=== PATIENT | female | born 1975 | race Caucasian/White ===

== ENCOUNTER → 2018-09-21 15:40 | Outpatient (CLI) | payer OTHER, SELFPAY ==
[2018-09-21 18:30] LABS: AST(SGOT) 19 U/L (15-37); Alanine Aminotransfer ALT/SGPT 34 U/L (13-56); Albumin, Serum 4.1 g/dL (3.2-5.0); Alkaline Phosphatase 60 U/L (45-117); Bilirubin, Direct 0.08 mg/dL (0.00-0.30); CRP < 2.90 mg/L (0.0-3.0); Globulin 3.2 g/dL (2.2-4.2); Lipase 205 U/L (73-393); Protein, Total 7.3 g/dL (6.4-8.2)
== END ==
PROVIDERS: Family Provider Family Medicine; PCP Family Medicine; Referring Provider Internal Medicine Gastroenterology; Visit Provider Internal Medicine Gastroenterology
DX: R10.11 Right upper quadrant pain (principal)
CPT/HCPCS: 36415; 80076; 83690; 86140

== ENCOUNTER → 2018-09-25 09:39 | Outpatient (CLI) | payer OTHER, SELFPAY ==
--- NOTE | 2018-09-25 09:42 | US_ITS ---
STUDY: ABDOMINAL ULTRASOUND - RIGHT UPPER QUADRANT REASON FOR VISIT: Female, 43 years old. Nausea and vomiting with right upper quadrant pain following cholecystectomy TECHNIQUE: Ultrasound evaluation of the right upper quadrant was performed with real-time and static conway-scale imaging. TECHNICAL QUALITY: Adequate. COMPARISON: None. FINDINGS: Liver: The liver measures 11 cm. There is normal echogenicity of the liver. The bile ducts are within normal limits. There is hepatic color flow. The direction of portal flow is hepatopetal. There is no demonstrated mass lesion. Gallbladder: The gallbladder is not visualized. No focal fluid collection. Common Bile Duct (C.B.D.): The common bile duct measures 3 mm. Pancreas: There is normal echogenicity of the visualized pancreas. There is no demonstrated pancreatic mass or cyst. Right Kidney: Normal size of the right kidney. The right kidney measures 9.9 cm. Normal renal cortex. The right cortex measures 1.1 cm. There is no demonstrated renal mass or cyst. There is no right hydronephrosis. US/Liver IMPRESSION: 1. Cholecystectomy. No biliary dilation or focal fluid collection demonstrated. Electronically Signed: Volodymyr Hdz MD at 15:37 EST , Service support ,
== END ==
PROVIDERS: Family Provider Family Medicine; PCP Family Medicine; Referring Provider Internal Medicine Gastroenterology; Visit Provider Internal Medicine Gastroenterology
DX: R11.0 Nausea (principal); Z90.49 Acquired absence of other specified parts of digestive tract
CPT/HCPCS: 76705

== ENCOUNTER → 2018-10-05 11:07 | Outpatient (CLI) | payer OTHER, SELFPAY ==
[2018-10-05 12:21] LABS: AST(SGOT) 17 U/L (15-37); Alanine Aminotransfer ALT/SGPT 24 U/L (13-56); Albumin, Serum 3.7 g/dL (3.2-5.0); Alkaline Phosphatase 58 U/L (45-117); Bilirubin, Direct 0.18 mg/dL (0.00-0.30); CRP < 2.90 mg/L (0.0-3.0); Globulin 3.3 g/dL (2.2-4.2); Lipase 140 U/L (73-393)
--- OUTSIDE RECORDS SUMMARY | 2018-12-07 21:24 | XMS RPT_ITS ---
:1975 Author Organization [facility] Care Team Providers Name Role Phone ANN COLE (SUPERVISOR OF WAY) Attending Unavailable ANN COLE (SUPERVISOR OF WAY) Referring Unavailable NAGAANN (SUPERVISOR OF WAY) Referring Unavailable NAGA, ANN (SUPERVISOR OF WAY) Referring Unavailable MARISOL HUA (PA) Referring Unavailable Guerrero Louise Attending Unavailable Guerrero Louise Referring Unavailable Kaylie Hankins Primary Care Unavailable Guerrero Louise Attending Unavailable Aspen, Guerrero Referring Unavailable Cr, Kaylie Primary Care Unavailable JosebourGuerrero Attending Unavailable Jabour, Shwethaent Referring Unavailable Jollrajiv, Kaylie Primary Care Unavailable PROBLEMS PROBLEMS DATE TYPE CONDITION / CODE ATTENDING STATUS SOURCE 08/31/2018 Active Cough / NA Active [facility] R05(ICD-10) [facility] 08/19/2018 Active Other abnormal and NA Active [facility] inconclusive [facility] findings on Repository diagnostic imaging of breast / R92.8(ICD-10) 07/29/2018 Active Encounter for NA Active [facility] screening [facility] mammogram for Repository malignant neoplasm of breast / Z12.31(ICD-10) 07/21/2018 Active Unknown / ANN COLE Active [facility] UNK(Unknown) (SUPERVISOR OF WAY) [facility] PROCEDURES PROCEDURES No Procedure Records FoundRESULTS RESULTS LIVER PROFILE Collected: 10/05/2018 Status: F Source: [place] 11:11 AM [facility] REPOSITORY TYPE CODE TESTS RESULT OUT OF RANGE REFERENCE UNITS LAB L501.1500 6.4-8.2 g/dL Normal T PROT 7.0 LAB L501.1800 3.2-5.0 g/dL Normal ALB 3.7 LAB L501.1950 2.2-4.2 g/dL Normal GLOB 3.3 LAB L501.4100 15-37 U/L Normal AST 17 LAB L501.4305 45-117 U/L Normal ALK P 58 LAB L501.4405 13-56 U/L Normal ALT 24 LAB L501.4600 0.20-1.00 mg/dL Normal T BILI 0.80 LAB L501.4700 0.00-0.30 mg/dL Normal D BILI 0.18 Performed By: #### L500.3400, L501.2450, L501.6710 #### [facility] [address] [place], [place], [id number] LIPASE Collected: 10/05/2018 Status: F Source: [place] 11:11 AM [facility] REPOSITORY TYPE CODE TESTS RESULT OUT OF RANGE REFERENCE UNITS LAB L501.2450 73-393 U/L Normal LIPASE 140 Performed By: #### L500.3400, L501.2450, L501.6710 #### [facility] [address] [place], [place], [address] CRP Collected: 10/05/2018 Status: F Source: [place] 11:11 AM [facility] REPOSITORY TYPE CODE TESTS RESULT OUT OF RANGE REFERENCE UNITS LAB L501.6710 0.0-3.0 mg/L Normal < 2.90 C-REACTIVE PROT Result Comment: C-Reactive Protein (CRP) provides useful information for the diagnosis, therapy and monitoring of inflammatory processes and associated diseases. For the evaluation of Relative Risk for Cardiovascular Disease, a High Sensitivity CRP (HSCRP) should be ordered. Performed By: #### L500.3400, L501.2450, L501.6710 #### [facility] [address] [place], [address] LIVER Observed: 09/25/2018 Status: F Source: [place] 9:43 AM [facility] REPOSITORY [facility] Imaging Services [address] [place] [address] Liver MR#: [id number] Acct: [id number] Name: QUITA SPENCER Rep #: [id number] : 1975 F 43 From: Volodymyr Hdz MD PCP: Kaylie Hankins MD Status: REG CLI Study: Liver Date of Exam: 09/25/18 Exam# [id number] Ordering Dr: Guerrero Louise MD STUDY: ABDOMINAL ULTRASOUND - RIGHT UPPER QUADRANT REASON FOR VISIT: Female, 43 years old. Nausea and vomiting with right upper quadrant pain following cholecystectomy TECHNIQUE: Ultrasound evaluation of the right upper quadrant was performed with real-time and static gama-scale imaging. TECHNICAL QUALITY: Adequate. COMPARISON: None. FINDINGS: Liver: The liver measures 11 cm. There is normal echogenicity of the liver. The bile ducts are within normal limits. There is hepatic color flow. The direction of portal flow is hepatopetal. There is no demonstrated mass lesion. Gallbladder: The gallbladder is not visualized. No focal fluid collection. Common Bile Duct (C.B.D.): The common bile duct measures 3 mm. Pancreas: There is normal echogenicity of the visualized pancreas. There is no demonstrated pancreatic mass or cyst. Right Kidney: Normal size of the right kidney. The right kidney measures 9.9 cm. Normal renal cortex. The right cortex measures 1.1 cm. There is no demonstrated renal mass or cyst. There is no right hydronephrosis. US/Liver IMPRESSION: 1. Cholecystectomy. No biliary dilation or focal fluid collection demonstrated. Electronically Signed: Volodymyr Hdz MD at 15:37 EST , Service support , CC: Kaylie Hankins MD; Guerrero Louise Medical Transcriptionist: Signed LIVER PROFILE Collected: 09/21/2018 Status: F Source: [place] 3:50 PM [facility] REPOSITORY TYPE CODE TESTS RESULT OUT OF RANGE REFERENCE UNITS LAB L501.1500 6.4-8.2 g/dL Normal T PROT 7.3 LAB L501.1800 3.2-5.0 g/dL Normal ALB 4.1 LAB L501.1950 2.2-4.2 g/dL Normal GLOB 3.2 LAB L501.4100 15-37 U/L Normal AST 19 LAB L501.4305 45-117 U/L Normal ALK P 60 LAB L501.4405 13-56 U/L Normal ALT 34 LAB L501.4600 0.20-1.00 mg/dL Normal T BILI 0.30 LAB L501.4700 0.00-0.30 mg/dL Normal D BILI 0.08 Performed By: #### L500.3400, L501.2450, L501.6710 #### [facility] [address] [place], [place], [id number] LIPASE Collected: 09/21/2018 Status: F Source: [place] 3:50 PM [facility] REPOSITORY TYPE CODE TESTS RESULT OUT OF RANGE REFERENCE UNITS LAB L501.2450 73-393 U/L Normal LIPASE 205 Performed By: #### L500.3400, L501.2450, L501.6710 #### [facility] [address] [facility] [place], [place], [address] CRP Collected: 09/21/2018 Status: F Source: [place] 3:50 PM [facility] REPOSITORY TYPE CODE TESTS RESULT OUT OF RANGE REFERENCE UNITS LAB L501.6710 0.0-3.0 mg/L Normal < 2.90 C-REACTIVE PROT Result Comment: C-Reactive Protein (CRP) provides useful information for the diagnosis, therapy and monitoring of inflammatory processes and associated diseases. For the evaluation of Relative Risk for Cardiovascular Disease, a High Sensitivity CRP (HSCRP) should be ordered. Performed By: #### L500.3400, L501.2450, L501.6710 #### [facility] [address] [place], [address] PROGRESS Observed: 08/31/2018 Status: COMPLETED Source: [place] 8:44 AM [facility] REPOSITORY HNO ID: [id number] Author: Marisol Hardin) Javid Service: (none) Author Type: Physician Parts Advisor Type: Progress Notes Filed: 08/31/2018 8:50 AM Note Text: Subjective HPI Patient presents with a cough over the past week. She states every winter she gets a viral bronchitis and this feels similar. She was here 4 days ago and was started on prednisone. She states she really doesn't feel any improved and the cough is keeping her up all night. She states she's been fatigued. She does intermittently feel short of breath and has been using her inhaler every 2-4 hours. She denies ever being formally diagnosed with asthma. She denies any fever or chills. No chest pain. No vomiting or diarrhea. This is really been a dry persistent cough. Review of Systems Constitutional: Negative. HENT: Negative. Eyes: Negative. Respiratory: Positive for cough, shortness of breath and wheezing. Negative for hemoptysis and sputum production. Cardiovascular: Negative. Gastrointestinal: Negative. Genitourinary: Negative. Skin: Negative. All other systems reviewed and are negative. PAST MEDICAL HISTORY Diagnosis Date - Post viral RAD (reactive airway disease) cough/wheezing with URIs Current Outpatient Prescriptions: albuterol HFA (PROAIR HFA) 90 mcg/actuation inhaler Inhale 2 Puffs as instructed every 4 hours as needed. Disp: 1 Inhaler Rfl: 0 benzonatate (TESSALON PERLE) 100 mg capsule Take 1 capsule by mouth every 8 hours as needed for Cough for up to 15 days. Disp: 30 capsule Rfl: 0 Omeprazole 40 mg capsule Take 40 mg by mouth once daily. Disp: Rfl: predniSONE (DELTASONE) 10 mg tablet Take by mouth 5 pills on day 1, 4 pills on day 2, 3 pills on day 3, 2 pills on day 4, 1 pill on day 5. Disp: 15 tablet Rfl: 0 codeine-guaiFENesin (GUAIFENESIN AC) 10-100 mg/5 mL syrup Take 10 mL by mouth four times daily as needed for up to 7 days. Disp: 100 mL Rfl: 0 Fluticasone Propionate (FLOVENT DISKUS) 50 mcg/actuation diskus inhaler Inhale 2 Puffs as instructed twice daily. Disp: 1 Inhaler Rfl: 0 No current facility-administered medications for this visit. PAST SURGICAL HISTORY Procedure Laterality Date - CORRECT BUNION,SIMPLE 1994 LEFT FOOT - EGD W/O OR W/BRUSH/WASH 09/06/2015 EGD - GALLBLADDER/EF 12/2015 FAMILY HISTORY Problem Relation Age of Onset - Diabetes Mother - Hypertension Mother - Breast Cancer Mother age 61, was tested and neg - Hypertension Father - other (liver disease) Father - Breast Cancer Maternal Grandmother - Diabetes Maternal Grandmother - Hypertension Maternal Grandmother - Breast Cancer Other MATERNAL GREAT AUNTS X2 - Hypertension Sister - Diabetes Sister Social History Substance Use Topics - Smoking status: Never Smoker - Smokeless tobacco: Never Used - Alcohol use Yes Comment: occasionally BP 120/80 Pulse 87 Temp 36.3 ?C (97.4 ?F) (Left Tympanic) Resp 14 Wt 55.3 kg (122 lb) SpO2 99% BMI 22.68 kg/m? Objective Physical Exam Constitutional: She is oriented to person, place, and time and well-developed, well-nourished, and in no distress. HENT: Head: Normocephalic and atraumatic. Right Ear: Tympanic membrane, external ear and ear canal normal. Left Ear: Tympanic membrane, external ear and ear canal normal. Nose: Nose normal. Mouth/Throat: Uvula is midline, oropharynx is clear and moist and mucous membranes are normal. Neck: Normal range of motion. Neck supple. Cardiovascular: Normal rate, regular rhythm and normal heart sounds. Pulmonary/Chest: Effort normal and breath sounds normal. Dry persistent cough, hoarse voice Neurological: She is alert and oriented to person, place, and time. Skin: Skin is warm and dry. Nursing note and vitals reviewed. ASSESSMENT/PLAN: 1. Acute asthmatic bronchitis - ICD9: 493.90, ICD10: J45.909 (primary diagnosis) I did start her on flovent for the next 2 weeks. Discussed that this is not for emergent shortness of breath, just to take twice a day over the next couple of weeks. Also recommended washing mouth out after use. Continue with albuterol MDI every 4-6 hours as needed. Her chest xray here is negative. She feels improved after breathing treatment here. She is in no distress. She was given robitussin AC with instructions not to use while driving or at work, only if staying in and at night due to sedation. May continue tessalon for during the day. Vital signs stable here. Discussed with patient concerning symptoms to go to the emergency department or follow up here. Pt agreeable with this plan. - FLUTICASONE 50 MCG/ACTUATION BLISTER POWDER FOR INHALATION - CODEINE 10 MG-GUAIFENESIN 100 MG/5 ML ORAL LIQUID 2. Cough - ICD9: 786.2, ICD10: R05 - XR CHEST 2V FRONTAL/LAT - ALBUTEROL SULFATE 2.5 MG/3 ML (0.083 %) SOLUTION FOR NEBULIZATION Marisol Hua PA-C XR CHEST 2V FRONTAL/LAT Observed: 08/31/2018 Status: F Source: [place] 8:15 AM [facility] REPOSITORY * * *Final Report* * * DATE OF EXAM: Aug 31 2018 8:15AM WOX [id number] - XR CHEST 2V FRONTAL/LAT / PROCEDURE REASON: Cough * * * * Physician Interpretation * * * * EXAMINATION: CHEST RADIOGRAPH (2 VIEW FRONTAL and LATERAL) CLINICAL HISTORY: Cough MQ: XC2_5 Comparison: None RESULT: Lines, tubes, and devices: None. Lungs and pleura: No consolidation. No lung mass. No pleural effusion. Cardiomediastinal silhouette: Normal cardiomediastinal silhouette. Other: . IMPRESSION: No acute radiographic abnormality. Medical Transcriptionist: PSCLuis Transcribe Date/Time: Aug 31 2018 8:17A Dictated by : PRISCILA YEE MD This examination was interpreted and the report reviewed and electronically signed by: PRISCILA YEE MD on Aug 31 2018 8:20AM EST [id number] PROGRESS Observed: 08/31/2018 Status: COMPLETED Source: [place] 8:08 AM [facility] REPOSITORY HNO ID: [id number] Author: Gillian Joyner (Rt) Janine Kaplan Service: (none) Author Type: Psychological Assistant Type: Progress Notes Filed: 08/31/2018 8:14 AM Note Text: Radiology Service Progress Note PATIENT NAME: Quita Spencer DATE OF SERVICE: August 31, 2018 TIME: 8:08 AM PATIENT IDENTITY VERIFICATION COMPLETED USING TWO (2) METHODS: Patient confirmed name verbally and Date of . PATIENT GENDER DATA: Female. status: : No status: NO. PATIENT RELEVANT IMPLANT DATA REVIEWED: Not Applicable RADIOLOGY DEPARTMENT: General X-ray: Exam(s) Completed: Chest X-Ray PERIPHERAL IV DATA: Not applicable SIGNED BY: RT Marjorie August 31, 2018 8:08 AM AUBREY Observed: 08/31/2018 Status: COMPLETED Source: [place] 7:45 AM [facility] REPOSITORY Office Visit (WSTR) QUITA SPENCER ([id number]) 1975 F Date Time Provider Department 08/31/18 7:45 AM MARISOL HUA (JER) [facility] During your visit today, we recorded the following information about you: Temperature Pulse Respiration Blood pressure 97.4 degrees 87/minute 14/minute 120/80 Weight 55.3 kg Dennise Pang Ma 08/31/2018 8:06 AM Signed 2.5 solution aerosol treatment given per doctor's orders. Prior to treatment O2 Sat is 99%. Treatment completed. O2 sat is 99%. Tolerated well. Marisol Hua PA-C 08/31/2018 8:50 AM Signed Subjective HPI Patient presents with a cough over the past week. She states every winter she gets a viral bronchitis and this feels similar. She was here 4 days ago and was started on prednisone. She states she really doesn't feel any improved and the cough is keeping her up all night. She states she's been fatigued. She does intermittently feel short of breath and has been using her inhaler every 2-4 hours. She denies ever being formally diagnosed with asthma. She denies any fever or chills. No chest pain. No vomiting or diarrhea. This is really been a dry persistent cough. Review of Systems Constitutional: Negative. HENT: Negative. Eyes: Negative. Respiratory: Positive for cough, shortness of breath and wheezing. Negative for hemoptysis and sputum production. Cardiovascular: Negative. Gastrointestinal: Negative. Genitourinary: Negative. Skin: Negative. All other systems reviewed and are negative. PAST MEDICAL HISTORY Diagnosis Date - Post viral RAD (reactive airway disease) cough/wheezing with URIs Current Outpatient Prescriptions: albuterol HFA (PROAIR HFA) 90 mcg/actuation inhaler Inhale 2 Puffs as instructed every 4 hours as needed. Disp: 1 Inhaler Rfl: 0 benzonatate (TESSALON PERLE) 100 mg capsule Take 1 capsule by mouth every 8 hours as needed for Cough for up to 15 days. Disp: 30 capsule Rfl: 0 Omeprazole 40 mg capsule Take 40 mg by mouth once daily. Disp: Rfl: predniSONE (DELTASONE) 10 mg tablet Take by mouth 5 pills on day 1, 4 pills on day 2, 3 pills on day 3, 2 pills on day 4, 1 pill on day 5. Disp: 15 tablet Rfl: 0 codeine-guaiFENesin (GUAIFENESIN AC) 10-100 mg/5 mL syrup Take 10 mL by mouth four times daily as needed for up to 7 days. Disp: 100 mL Rfl: 0 Fluticasone Propionate (FLOVENT DISKUS) 50 mcg/actuation diskus inhaler Inhale 2 Puffs as instructed twice daily. Disp: 1 Inhaler Rfl: 0 No current facility-administered medications for this visit. PAST SURGICAL HISTORY Procedure Laterality Date - CORRECT BUNION,SIMPLE 1994 LEFT FOOT - EGD W/O OR W/BRUSH/WASH 09/06/2015 EGD - GALLBLADDER/EF 12/2015 FAMILY HISTORY Problem Relation Age of Onset - Diabetes Mother - Hypertension Mother - Breast Cancer Mother age 61, was tested and neg - Hypertension Father - other (liver disease) Father - Breast Cancer Maternal Grandmother - Diabetes Maternal Grandmother - Hypertension Maternal Grandmother - Breast Cancer Other MATERNAL GREAT AUNTS X2 - Hypertension Sister - Diabetes Sister Social History Substance Use Topics - Smoking status: Never Smoker - Smokeless tobacco: Never Used - Alcohol use Yes Comment: occasionally BP 120/80 Pulse 87 Temp 36.3 ?C (97.4 ?F) (Left Tympanic) Resp 14 Wt 55.3 kg (122 lb) SpO2 99% BMI 22.68 kg/m? Objective Physical Exam Constitutional: She is oriented to person, place, and time and well-developed, well-nourished, and in no distress. HENT: Head: Normocephalic and atraumatic. Right Ear: Tympanic membrane, external ear and ear canal normal. Left Ear: Tympanic membrane, external ear and ear canal normal. Nose: Nose normal. Mouth/Throat: Uvula is midline, oropharynx is clear and moist and mucous membranes are normal. Neck: Normal range of motion. Neck supple. Cardiovascular: Normal rate, regular rhythm and normal heart sounds. Pulmonary/Chest: Effort normal and breath sounds normal. Dry persistent cough, hoarse voice Neurological: She is alert and oriented to person, place, and time. Skin: Skin is warm and dry. Nursing note and vitals reviewed. ASSESSMENT/PLAN: 1. Acute asthmatic bronchitis - ICD9: 493.90, ICD10: J45.909 (primary diagnosis) I did start her on flovent for the next 2 weeks. Discussed that this is not for emergent shortness of breath, just to take twice a day over the next couple of weeks. Also recommended washing mouth out after use. Continue with albuterol MDI every 4-6 hours as needed. Her chest xray here is negative. She feels improved after breathing treatment here. She is in no distress. She was given robitussin AC with instructions not to use while driving or at work, only if staying in and at night due to sedation. May continue tessalon for during the day. Vital signs stable here. Discussed with patient concerning symptoms to go to the emergency department or follow up here. Pt agreeable with this plan. - FLUTICASONE 50 MCG/ACTUATION BLISTER POWDER FOR INHALATION - CODEINE 10 MG-GUAIFENESIN 100 MG/5 ML ORAL LIQUID 2. Cough - ICD9: 786.2, ICD10: R05 - XR CHEST 2V FRONTAL/LAT - ALBUTEROL SULFATE 2.5 MG/3 ML (0.083 %) SOLUTION FOR NEBULIZATION Marisol Hua PA-C Referring Provider: SELF [200] Allergies As of Date: 08/31/2018 Noted Allergy Reaction DOXYCYCLINE 10/30/2005 8 - GI Upset Date Reviewed: 08/31/2018 Reviewed by: Dennise Pang Ma - Fully Assessed Reason for Visit: Cough [28] Primary Visit Diagnosis:Acute asthmatic bronchitis [J45.909] Other Visit Diagnosis:Cough [R05] Order(s):XR CHEST 2V FRONTAL/LAT [[id number]] Order #: [id number] FUTURE [] albuterol 2.5 mg /3 mL (0.083 %) 2.5 mg (PROVENTIL)Disp: Rfl: Fluticasone Propionate (FLOVENT DISKUS) 50 mcg/actuation diskus inhalerInhale 2 Puffs as instructed twice daily.Disp: 1 InhalerRfl: 0 codeine-guaiFENesin (GUAIFENESIN AC) 10-100 mg/5 mL syrupTake 10 mL by mouth four times daily as needed for up to 7 days.Disp: 100 mLRfl: 0 Prescriptions as of 08/31/2018 Sig: ALBUTEROL SULFATE HFA 90 MCG/* Inhale 2 Puffs as instructed * BENZONATATE 100 MG CAPSULE Take 1 capsule by mouth every* OMEPRAZOLE 40 MG CAPSULE,ELLIOT* Take 40 mg by mouth once katherin* PREDNISONE 10 MG TABLET Take by mouth 5 pills on day * CODEINE 10 MG-GUAIFENESIN 100* Take 10 mL by mouth four time* FLUTICASONE 50 MCG/ACTUATION * Inhale 2 Puffs as instructed * Problem List As Of Date 08/31/2018 Noted Resolved Mittelschmerz [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 Prior to treatment O2 Sat is 99%. Treatment completed. O2 sat is 99%. Tolerated well. Prescriptions ordered this encounter Disp Refills Start End ALBUTEROL SULFATE 2.5 MG/3 ML (0.083* 08/31/2018 08/31/2018 Route: INHALATION FLUTICASONE 50 MCG/ACTUATION BLISTER* 1 In* 0 08/31/2018 Route: INHALATION Sig: Inhale 2 Puffs as instructed twice daily. CODEINE 10 MG-GUAIFENESIN 100 MG/5 M* 100 * 0 08/31/2018 09/07/2018 Class: Print RX Route: ORAL Sig: Take 10 mL by mouth four times daily as needed for up to 7 days. Letter Text Marisol Hua PA-C Urgent Care [address] [facility] [address] Dept: [phone] 08/31/2018 [facility]a [facility] [address] [facility] [address] To Whom it May Concern: This is to certify that Quita Spencer was seen at our office for medical care. Quita may return to work on 09/01/2018. If you have any questions please feel free to call. Sincerely: Marisol Hua PA-C Encounter Status:Closed by MARISOL HUA PA-C on 08/31/18 PROGRESS Observed: 08/27/2018 Status: COMPLETED Source: [place] 5:33 PM [facility] REPOSIT[facility] HNO ID: [id number] Author: Charlie Amaro Service: (none) Author Type: Physician Type: Progress Notes Filed: 08/27/2018 5:59 PM Note Text: Patient presents with: Cough Breathing Problem HPI: Feeling sick for a couple days with URI. Has sick contacts. Breathing is flared up in a similar way in multiple prior episodes. Positive symptoms: Cough, Shortness of breath, Wheezing, Chest tightness, Negative symptoms: Sore throat, Earache, Nasal Congestion, Rhinorrhea, Fever, palpitations, malaise OTC: albuterol, Cough Medicine, claritin. Started on omeprazole by PCP for heartburn 6 days ago. Flaring up for 6 months, no effect with eating or exertion. PAST MEDICAL HISTORY Diagnosis Date - Biliary colic 11/22/2015 - NONE MEDICATIONS: Current Outpatient Prescriptions: albuterol HFA (PROAIR HFA) 90 mcg/actuation inhaler Inhale 2 Puffs as instructed every 4 hours as needed. Omeprazole 40 mg capsule Take 40 mg by mouth once daily. No current facility-administered medications for this visit. ALLERGIES: ALLERGIES Allergen Reactions - Doxycycline GI Upset VITALS: BP 130/90 Pulse 80 Temp 36.9 ?C (98.5 ?F) (Left Tympanic) Resp 14 Wt 55.8 kg (123 lb) SpO2 99% BMI 22.86 kg/m? PHYSICAL EXAM: GEN: Pleasant, in no acute distress. HEENT: PERRL, EOMI, conjunctiva clear Ears: canals clear, TMs without erythema, bulge, or effusion Sinuses: non-tender frontal sinus, non-tender maxillary sinuses Throat: moist mucous membranes, mild erythema, no exudate Neck: supple, no thyromegaly, no lymphadenopathy HEART: regular rate and rhythm, no murmurs LUNGS: clear to auscultation, no wheezes or crackles, no increased WOB; non-productive coughing ASSESSMENT/PLAN: 1. Cough - ICD9: 786.2, ICD10: R05 (primary diagnosis) 2. Wheezing - ICD9: 786.07, ICD10: R06.2 - PREDNISONE 10 MG TABLET - taper - BENZONATATE 100 MG CAPSULE F/u in the ER with worsening chest pain or shortness of breath. Charlie Amaro MD CNOV Observed: 08/27/2018 Status: COMPLETED Source: [place] 5:15 PM [facility] REPOSITORY Office Visit (WSTR) QUITA SPENCER ([id number]) 1975 F Date Time Provider Department 08/27/18 5:15 PM CHARLIE AMARO [facility] During your visit today, we recorded the following information about you: Temperature Pulse Respiration Blood pressure 98.5 degrees 80/minute 14/minute 130/90 Weight 55.8 kg Charlie Amaro MD 08/27/2018 5:59 PM Signed Patient presents with: Cough Breathing Problem HPI: Feeling sick for a couple days with URI. Has sick contacts. Breathing is flared up in a similar way in multiple prior episodes. Positive symptoms: Cough, Shortness of breath, Wheezing, Chest tightness, Negative symptoms: Sore throat, Earache, Nasal Congestion, Rhinorrhea, Fever, palpitations, malaise OTC: albuterol, Cough Medicine, claritin. Started on omeprazole by PCP for heartburn 6 days ago. Flaring up for 6 months, no effect with eating or exertion. PAST MEDICAL HISTORY Diagnosis Date - Biliary colic 11/22/2015 - NONE MEDICATIONS: Current Outpatient Prescriptions: albuterol HFA (PROAIR HFA) 90 mcg/actuation inhaler Inhale 2 Puffs as instructed every 4 hours as needed. Omeprazole 40 mg capsule Take 40 mg by mouth once daily. No current facility-administered medications for this visit. ALLERGIES: ALLERGIES Allergen Reactions - Doxycycline GI Upset VITALS: BP 130/90 Pulse 80 Temp 36.9 ?C (98.5 ?F) (Left Tympanic) Resp 14 Wt 55.8 kg (123 lb) SpO2 99% BMI 22.86 kg/m? PHYSICAL EXAM: GEN: Pleasant, in no acute distress. HEENT: PERRL, EOMI, conjunctiva clear Ears: canals clear, TMs without erythema, bulge, or effusion Sinuses: non-tender frontal sinus, non-tender maxillary sinuses Throat: moist mucous membranes, mild erythema, no exudate Neck: supple, no thyromegaly, no lymphadenopathy HEART: regular rate and rhythm, no murmurs LUNGS: clear to auscultation, no wheezes or crackles, no increased WOB; non-productive coughing ASSESSMENT/PLAN: 1. Cough - ICD9: 786.2, ICD10: R05 (primary diagnosis) 2. Wheezing - ICD9: 786.07, ICD10: R06.2 - PREDNISONE 10 MG TABLET - taper - BENZONATATE 100 MG CAPSULE F/u in the ER with worsening chest pain or shortness of breath. Charlie Amaro MD Referring Provider: SELF [200] Allergies As of Date: 08/27/2018 Noted Allergy Reaction DOXYCYCLINE 10/30/2005 8 - GI Upset Date Reviewed: 08/27/2018 Reviewed by: Dennise Pang Ma - Fully Assessed Reason for Visit: Cough [28] Breathing Problem [17] Primary Visit Diagnosis:Cough [R05] Other Visit Diagnosis:Wheezing [R06.2] Order(s):predniSONE (DELTASONE) 10 mg tabletTake by mouth 5 pills on day 1, 4 pills on day 2, 3 pills on day 3, 2 pills on day 4, 1 pill on day 5.Disp: 15 tabletRfl: 0 benzonatate (TESSALON PERLE) 100 mg capsuleTake 1 capsule by mouth every 8 hours as needed for Cough for up to 15 days.Disp: 30 capsuleRfl: 0 Prescriptions as of 08/27/2018 Sig: ALBUTEROL SULFATE HFA 90 MCG/* Inhale 2 Puffs as instructed * OMEPRAZOLE 40 MG CAPSULE,ELLIOT* Take 40 mg by mouth once katherin* BENZONATATE 100 MG CAPSULE Take 1 capsule by mouth every* PREDNISONE 10 MG TABLET Take by mouth 5 pills on day * Problem List As Of Date 08/27/2018 Noted Resolved Damien [N94.0] INVALID FOR*08/24/2015 Chronic cholecystitis without calculus [K81.1] INVALID FOR* Prescriptions ordered this encounter Disp Refills Start End PREDNISONE 10 MG TABLET 15 t* 0 08/27/2018 09/01/2018 Sig: Take by mouth 5 pills on day 1, 4 pills on day 2, 3 pills on day 3, 2 pills on day 4, 1 pill on day 5. BENZONATATE 100 MG CAPSULE 30 c* 0 08/27/2018 09/11/2018 Route: ORAL Sig: Take 1 capsule by mouth every 8 hours as needed for Cough for up to 15 days. Encounter Status:Closed by CHARLIE AMARO MD on 08/27/18 CNCO Observed: 08/19/2018 Status: COMPLETED Source: [place] 9:49 AM [facility] REPOSITORY HNO ID: [id number] Author: Mammography Coordinator Service: (none) Author Type: Physician Type: Letter Filed: 08/20/2018 11:31 PM Note Text: August 19, 2018 PID: [id number] Quita Spencer [address] [place] [address] Dear Ms. Spencer, We are pleased to inform you that the results of your recent breast imaging exam on 08/19/2018 are normal and we recommend that you return to your annual screening Mammography schedule. Your mammogram demonstrates that you have dense breast tissue, which could hide abnormalities. Dense breast tissue, in and of itself, is a relatively common condition. Therefore, this information is not provided to cause undue concern; rather, it is to raise your awareness and promote discussion with your health care provider regarding the presence of dense breast tissue in addition to other risk factors. Early detection of cancer is very important. We also understand recommendations regarding breast cancer screening are controversial. Please discuss with your primary care provider which strategy is best for you and whether a mammogram is right for you. Your imaging studies and report will be kept on file at [facility] as part of your permanent medical record and are available for your continuing care. Thank you for allowing us to help in meeting your health care needs. Sincerely, Dr. Santos Interpreting Radiologist [facility] (Return to Annual Mammogram schedule) CNCO Observed: 08/19/2018 Status: COMPLETED Source: [place] 9:49 AM [facility] REPOSITORY HNO ID: [id number] Author: Mammography Coordinator Service: (none) Author Type: Physician Type: Letter Filed: 08/20/2018 11:31 PM Note Text: August 19, 2018 PID: [id number] Quita Spencer [address] [place] [address] Dear Ms. Spencer, We are pleased to inform you that the results of your recent breast imaging exam on 08/19/2018 are normal and we recommend that you return to your annual screening Mammography schedule. Your mammogram demonstrates that you have dense breast tissue, which could hide abnormalities. Dense breast tissue, in and of itself, is a relatively common condition. Therefore, this information is not provided to cause undue concern; rather, it is to raise your awareness and promote discussion with your health care provider regarding the presence of dense breast tissue in addition to other risk factors. Early detection of cancer is very important. We also understand recommendations regarding breast cancer screening are controversial. Please discuss with your primary care provider which strategy is best for you and whether a mammogram is right for you. Your imaging studies and report will be kept on file at [facility] as part of your permanent medical record and are available for your continuing care. Thank you for allowing us to help in meeting your health care needs. Sincerely, Dr. Santos Interpreting Radiologist [facility] (Return to Annual Mammogram schedule) CNCO Observed: 08/19/2018 Status: COMPLETED Source: [place] 9:47 AM [facility] REPOSITORY HNO ID: [id number] Author: Mammography Coordinator Service: (none) Author Type: Physician Type: Letter Filed: 08/20/2018 11:31 PM Note Text: August 19, 2018 PID: [id number] Quita Spencer [address] [place] [address] Dear Ms. Spencer, We are pleased to inform you that the results of your recent breast imaging exam on 08/19/2018 are normal and we recommend that you return to your annual screening Mammography schedule. Your mammogram demonstrates that you have dense breast tissue, which could hide abnormalities. Dense breast tissue, in and of itself, is a relatively common condition. Therefore, this information is not provided to cause undue concern; rather, it is to raise your awareness and promote discussion with your health care provider regarding the presence of dense breast tissue in addition to other risk factors. Early detection of cancer is very important. We also understand recommendations regarding breast cancer screening are controversial. Please discuss with your primary care provider which strategy is best for you and whether a mammogram is right for you. Your imaging studies and report will be kept on file at [facility] as part of your permanent medical record and are available for your continuing care. Thank you for allowing us to help in meeting your health care needs. Sincerely, Dr. Santos Interpreting Radiologist [facility] (Return to Annual Mammogram schedule) [facility] ONLY SAME Observed: 08/19/2018 Status: F [facility] AM [facility] REPOSITORY * * *Final Report* * * DATE OF EXAM: Aug 19 2018 9:41AM W 0589 - [facility] ONLY SAME DAY LT -NB / PROCEDURE REASON: zachary per radiologist * * * * Physician Interpretation * * * * RESULT: #[id number] - [facility] ONLY SAME DAY LT -NB UNILATERAL LEFT DIGITAL DIAGNOSTIC MAMMOGRAM TOMOSYNTHESIS WITH CAD: 08/19/2018 HISTORY: Zachary Per Radiologist /Call back/abnormal mamm: Left. RESULT: TECHNIQUE: The study was acquired using full field digital technology and interpreted from soft copy. Digital Breast Tomosynthesis (DBT) images were obtained and used to assist in the interpretation of this examination. Current study was also evaluated with a Computer Aided Detection (CAD). Comparison is made to exams dated: 07/29/2018 mammogram and 07/18/2016 mammogram - [facility]. The tissue of left breast is heterogeneously dense. This may lower the sensitivity of mammography. Additional imaging reveals area of interest in the left breast on prior exam is not reproduced and presumably represents superimposed breast tissue. No significant masses, calcifications, or other findings are seen in the breast. IMPRESSION: There is no mammographic evidence of malignancy. Return to annual mammogram screening schedule is recommended. Love kiser/nile:08/19/2018 09:47:25 Welding Setter(s): RT Edy(R)(M), [facility] letter sent: Return to Annual Mammogram BI-RADS: 1 Negative Multiple national specialty organizations have released breast cancer screening guidelines for women at average risk for developing breast cancer - guidelines that are based on both evidence and opinion, yet differ on when to start and how often to screen for breast cancer. With representation from Breast Imaging, Internal Medicine, Women's Health, Family Medicine, and Medical/Surgical Oncology, the [facility] has carefully reviewed the data and reached the following consensus: 1) All women should engage in shared decision-making with their providers to decide when to start and how often to screen; 2) All women should have the opportunity to start screening mammography at age 40; 3) For women ages 45-55, we recommend annual screening mammograms; 4) For women ages 55 and over, we support both the transition from an annual to a biennial interval if this aligns more with patient's values and preferences, or continuation with annual screening; 5) All women should discuss with their providers when to stop screening mammograms. Medical Transcriptionist: Nile Transcribe Date/Time: Aug 19 2018 9:43A Dictated by: LOVE SANTOS MD This examination was interpreted and the report reviewed and electronically signed by: LOVE SANTOS MD on Aug 19 2018 9:47AM EST [id number] PROGRESS Observed: 08/19/2018 Status: COMPLETED Source: [place] 9:38 AM [facility] REPOSITORY O ID: [id number] Author: Jessica Joseph Service: (none) Author Type: Clay Burner Type: Progress Notes Filed: 08/19/2018 9:38 AM Note Text: Radiology Service Progress Note PATIENT NAME: Quita Spencer DATE OF SERVICE: August 19, 2018 TIME: 9:38 AM PATIENT IDENTITY VERIFICATION COMPLETED USING TWO (2) METHODS: Patient confirmed name verbally and Date of . PATIENT GENDER DATA: Female. status: : No status: N/A PATIENT RELEVANT IMPLANT DATA REVIEWED: Not Applicable RADIOLOGY DEPARTMENT: Ultrasound PERIPHERAL IV DATA: Not applicable SIGNED BY: JESSICA JOSEPH RDMS RVT August 19, 2018 9:38 AM [facility] US BREAST LTD Observed: 08/19/2018 Status: F Source: [facility] 9:37 AM [facility] REPOSITORY * * *Final Report* * * DATE OF EXAM: Aug 19 2018 9:37AM WRU 0593 - [facility] US BREAST LTD LT / PROCEDURE REASON: Abnormal mammogram * * * * Physician Interpretation * * * * #[id number] - [facility] DIAGNOSTIC LT #[id number] - [facility] US BREAST LTD LT UNILATERAL LEFT DIGITAL DIAGNOSTIC MAMMOGRAM WITH CAD: 08/19/2018 HISTORY: Lt Breast Abnormal Mammogram /Call back/abnormal mamm: Left Abnormal Mammogram. RESULT: TECHNIQUE: The study was acquired using full field digital technology and interpreted from soft copy. Current study was also evaluated with a Computer Aided Detection (CAD). Comparison is made to exams dated: 07/29/2018 mammogram and 07/18/2016 mammogram - [facility]. The tissue of left breast is heterogeneously dense. This may lower the sensitivity of mammography. Additional imaging reveals area of interest in the left breast on prior exam is not reproduced and presumably represents superimposed breast tissue. No significant masses, calcifications, or other findings are seen in the breast. IMPRESSION: There is no mammographic evidence of malignancy. LIMITED ULTRASOUND OF LEFT BREAST: 08/19/2018 RESULT: Comparison is made to exams dated: 07/29/2018 mammogram and 07/18/2016 mammogram - [facility]. Color flow and real-time ultrasound of the left breast 6 o'clock region were performed. Gama scale images of the real-time examination were reviewed. IMPRESSION: There is no sonographic evidence of malignancy. There is no abnormality seen in the left breast to correspond with the mammographic density. A 1 year screening mammogram is recommended. Love kiser/nile:08/19/2018 09:49:33 Multiple national specialty organizations have released breast cancer screening guidelines for women at average risk for developing breast cancer - guidelines that are based on both evidence and opinion, yet differ on when to start and how often to screen for breast cancer. With representation from Breast Imaging, Internal Medicine, Women's Health, Family Medicine, and Medical/Surgical Oncology, the [facility] has carefully reviewed the data and reached the following consensus: 1) All women should engage in shared decision-making with their providers to decide when to start and how often to screen; 2) All women should have the opportunity to start screening mammography at age 40; 3) For women ages 45-55, we recommend annual screening mammograms; 4) For women ages 55 and over, we support both the transition from an annual to a biennial interval if this aligns more with patient's values and preferences, or continuation with annual screening; 5) All women should discuss with their providers when to stop screening mammograms. Welding Setter(s): RT Edy(R)(M), [facility]; Jessica Joseph, [facility] letter sent: Return to Annual OVERALL STUDY BIRADS: 1 Negative Medical Transcriptionist: Nile Transcribe Date/Time: Aug 19 2018 7:58A Dictated by : LOVE SANTOS MD This examination was interpreted and the report reviewed and electronically signed by: LOVE SANTOS MD on Aug 19 2018 9:49AM EST [id number] PROGRESS Observed: 08/19/2018 Status: COMPLETED Source: [place] 9:13 AM [facility] REPOSITORY HNO ID: [id number] Author: Sherlyn Bellamy Service: (none) Author Type: (none) Type: Progress Notes Filed: 08/19/2018 9:13 AM Note Text: Radiology Service Progress Note PATIENT NAME: Quita Spencer DATE OF SERVICE: August 19, 2018 TIME: 9:13 AM PATIENT IDENTITY VERIFICATION COMPLETED USING TWO (2) METHODS: Patient confirmed name verbally and Date of . PATIENT GENDER DATA: Female. status: : No status: NO. PATIENT RELEVANT IMPLANT DATA REVIEWED: Not Applicable RADIOLOGY DEPARTMENT: [facility] diagnostic mammogram PERIPHERAL IV DATA: Not applicable SIGNED BY: Sherlyn Bellamy August 19, 2018 9:13 AM [facility] DIAGNOSTIC LT Observed: 08/19/2018 Status: F Source: [place] 8:10 AM [facility] REPOSITORY * * *Final Report* * * DATE OF EXAM: Aug 19 2018 8:10AM MARIW 0621 - [facility] DIAGNOSTIC LT / PROCEDURE REASON: lt breast abnormal mammogram * * * * Physician Interpretation * * * * RESULT: #[id number] [facility] DI[facility] LT #[id number] - [facility] US BREAST LTD LT UNILATERAL LEFT DIGITAL DIAGNOSTIC MAMMOGRAM WITH CAD: 08/19/2018 HISTORY: Lt Breast Abnormal Mammogram /Call back/abnormal mamm: Left Abnormal Mammogram. RESULT: TECHNIQUE: The study was acquired using full field digital technology and interpreted from soft copy. Current study was also evaluated with a Computer Aided Detection (CAD). Comparison is made to exams dated: 07/29/2018 mammogram and 07/18/2016 mammogram - [facility]. The tissue of left breast is heterogeneously dense. This may lower the sensitivity of mammography. Additional imaging reveals area of interest in the left breast on prior exam is not reproduced and presumably represents superimposed breast tissue. No significant masses, calcifications, or other findings are seen in the breast. IMPRESSION: There is no mammographic evidence of malignancy. LIMITED ULTRASOUND OF LEFT BREAST: 08/19/2018 RESULT: Comparison is made to exams dated: 07/29/2018 mammogram and 07/18/2016 mammogram - [facility]. Color flow and real-time ultrasound of the left breast 6 o'clock region were performed. Gama scale images of the real-time examination were reviewed. IMPRESSION: There is no sonographic evidence of malignancy. There is no abnormality seen in the left breast to correspond with the mammographic density. A 1 year screening mammogram is recommended. Love kiser/nile:08/19/2018 09:49:33 Multiple national specialty organizations have released breast cancer screening guidelines for women at average risk for developing breast cancer - guidelines that are based on both evidence and opinion, yet differ on when to start and how often to screen for breast cancer. With representation from Breast Imaging, Internal Medicine, Women's Health, Family Medicine, and Medical/Surgical Oncology, the [facility] has carefully reviewed the data and reached the following consensus: 1) All women should engage in shared decision-making with their providers to decide when to start and how often to screen; 2) All women should have the opportunity to start screening mammography at age 40; 3) For women ages 45-55, we recommend annual screening mammograms; 4) For women ages 55 and over, we support both the transition from an annual to a biennial interval if this aligns more with patient's values and preferences, or continuation with annual screening; 5) All women should discuss with their providers when to stop screening mammograms. Welding Setter(s): Sherlyn Crystal RT(R)(M), [facility]; Jessica Joseph, [facility] letter sent: Return to Annual OVERALL STUDY BIRADS: 1 Negative Medical Transcriptionist: Nile Transcribe Date/Time: Aug 19 2018 7:58A Dictated by: LOVE SANTOS MD This examination was interpreted and the report reviewed and electronically signed by: LOVE SANTOS MD on Aug 19 2018 9:49AM EST [id number] CNCO Observed: 07/29/2018 Status: COMPLETED Source: [place] 8:06 AM [facility] REPOSITORY HNO ID: [id number] Author: Mammography Coordinator Service: (none) Author Type: Physician Type: Letter Filed: 07/30/2018 11:31 PM Note Text: July 29, 2018 PID: [id number] Quita Spencer [address] [place] [address] Dear Ms. Spencer, Your recent breast imaging exam on 07/29/2018 showed a possible finding that requires additional imaging studies for a complete evaluation. Most such findings are probably benign (not cancer). Please call [phone] or EXT: [phone] to schedule an appointment for your additional imaging if you have not already done so. Your mammogram demonstrates that you have dense breast tissue, which could hide abnormalities. Dense breast tissue, in and of itself, is a relatively common condition. Therefore, this information is not provided to cause undue concern; rather, it is to raise your awareness and promote discussion with your health care provider regarding the presence of dense breast tissue in addition to other risk factors. Your breast images and report will be kept on file here as part of your permanent medical record and are available for your continuing care. Thank you for allowing us to help in meeting your health care needs. Sincerely, Dr. Rodriguez Interpreting Radiologist [facility] (Additional imaging) [facility] SCREENING Observed: 07/29/2018 Status: F Source: [place] 7:46 AM [facility] REPOSITORY * * *Final Report* * * DATE OF EXAM: Jul 29 2018 7:46AM [facility] 0581 - [facility] SCREENING / PROCEDURE REASON: Visit for screening mammogram * * * * Physician Interpretation * * * * RESULT: #[id number] - [facility] SCREENING BILATERAL DIGITAL SCREENING MAMMOGRAM WITH CAD: 07/29/2018 HISTORY: Visit For Screening Mammogram /patient reports NO breast symptoms /priors available for comparison. RESULT: TECHNIQUE: The study was acquired using full field digital technology and interpreted from soft copy. Current study was also evaluated with a Computer Aided Detection (CAD). Comparison is made to exam dated: 07/18/2016 mammogram - [facility]. The tissue of both breasts is heterogeneously dense. This may lower the sensitivity of mammography. There is an asymmetry in the left breast inferior medial quadrant middle depth. No other significant masses, calcifications, or other findings are seen in either breast. IMPRESSION: INCOMPLETE: NEEDS ADDITIONAL IMAGING EVALUATION The asymmetry in the left breast is indeterminate. Additional views are recommended. Shelia Rodriguez M.D., mc/nile:07/29/2018 08:06:55 Welding Setter(s): RT Mika(Semaj)(Maria Eugenia), [facility] letter sent: Additional Imaging Needed Mammogram BI-RADS: 0 Incomplete: needs additional imaging evaluation If this report indicates you need additional imaging, and it has NOT yet been performed, please call , to schedule. We sincerely thank you for choosing the [facility] for your breast imaging needs. Multiple national specialty organizations have released breast cancer screening guidelines for women at average risk for developing breast cancer - guidelines that are based on both evidence and opinion, yet differ on when to start and how often to screen for breast cancer. With representation from Breast Imaging, Internal Medicine, Women's Health, Family Medicine, and Medical/Surgical Oncology, the [facility] has carefully reviewed the data and reached the following consensus: 1) All women should engage in shared decision-making with their providers to decide when to start and how often to screen; 2) All women should have the opportunity to start screening mammography at age 40; 3) For women ages 45-55, we recommend annual screening mammograms; 4) For women ages 55 and over, we support both the transition from an annual to a biennial interval if this aligns more with patient's values and preferences, or continuation with annual screening; 5) All women should discuss with their providers when to stop screening mammograms. Medical Transcriptionist: Nile Transcribe Date/Time: Jul 29 2018 7:29A Dictated by: SHELIA SIERRA MD This examination was interpreted and the report reviewed and electronically signed by: SHELIA SIERRA MD on Jul 29 2018 8:06AM EST [id number] PROGRESS Observed: 07/29/2018 Status: COMPLETED Source: [place] 7:26 AM [facility] REPOSITORY HNO ID: [id number] Author: Nia Bellamy Service: (none) Author Type: (none) Type: Progress Notes Filed: 07/29/2018 7:48 AM Note Text: Radiology Service Progress Note PATIENT NAME: Quita Spencer DATE OF SERVICE: July 29, 2018 TIME: 7:26 AM PATIENT IDENTITY VERIFICATION COMPLETED USING TWO (2) METHODS: Patient confirmed name verbally and Date of . PATIENT GENDER DATA: Female. status: : No status: NO. PATIENT RELEVANT IMPLANT DATA REVIEWED: Not Applicable RADIOLOGY DEPARTMENT: [facility] mammogram PERIPHERAL IV DATA: Not applicable SIGNED BY: Nia Bellamy July 29, 2018 7:26 AM PROGRESS Observed: 07/21/2018 Status: COMPLETED Source: [place] 8:10 AM [facility] REPOSITORY HNO ID: [id number] Author: Ann Cole Service: (none) Author Type: Nurse Practitioner Type: Progress Notes Filed: 07/21/2018 8:55 AM Note Text: Quita Spencer is a 43 year old who presents for her annual gynecologic exam without complaints. Menses: cycles every 25-30 days and 2-4 days of flow. Contraception: vasectomy HPV vaccine: N/A Last Pap: 2016 normal HPV: negative History of abnormal pap: Yes Last mammogram: 2016normal Sexually active: Yes Pain with intercourse: No Postcoital bleeding: No Hot flashes: No Night sweats: No Obstetric History T0 L2 SAB0 TAB0 Ectopic0 Multiple0 Live Births0 PAST MEDICAL HISTORY Diagnosis Date - Biliary colic 11/22/2015 - NONE PAST SURGICAL HISTORY Procedure Laterality Date - CORRECT BUNION,SIMPLE 1995 LEFT FOOT - EGD W/O OR W/BRUSH/WASH 09/06/2015 EGD - GALLBLADDER/EF 12/2015 FAMILY HISTORY Problem Relation Age of Onset - Diabetes Mother - Hypertension Mother - Breast Cancer Mother age 61, was tested and neg - Hypertension Father - other (liver disease) Father - Breast Cancer Maternal Grandmother - Diabetes Maternal Grandmother - Hypertension Maternal Grandmother - Breast Cancer Other MATERNAL GREAT AUNTS X2 - Hypertension Sister - Diabetes Sister SOCIAL HISTORY Social History Substance Use Topics - Smoking status: Never Smoker - Smokeless tobacco: Never Used - Alcohol use Yes Comment: occasionally REVIEW OF SYSTEMS Abdomen: No abdominal pain, nausea, vomiting, diarrhea, or constipation. No bloating, early satiety, indigestion, or increased flatulence. Bladder: No dysuria, gross hematuria, urinary frequency, urinary urgency. +stress incontinence. Breast: No breast lumps, nipple d/c, overlying skin changes, redness or skin retraction. Allergies and current medication updated:Yes EXAM: Ht 5' 1.5 (1.56m) Wt 121 lb 3.2 oz (55.0kg) LMP 06/29/2018 BMI 22.53 kg/(m2). GENERAL: pleasant, female in no apparent distress HEENT: Normocephalic, atraumatic, mucus membranes moist and no lesions NECK: Supple, full range of motion, no adenopathy and thyroid normal DERMATOLOGY: Normal, without lesions, non-icteric and non-hirsute BREAST: soft, non-tender, symmetric, no dominant mass, normal nipple-areolar complex, no lymphadenopathy and no nipple discharge CHEST: Normal inspiratory effort ABDOMEN: soft, non-tender and no masses PELVIC: external genitalia normal, normal Bartholin's glands, urethra, Earlham's glands, no vulvar lesions, no cervical lesions, good vaginal support, physiologic discharge present, normal appearing perineal body and perianal region, well estrogenized BIMANUAL: uterus normal size, shape and consistency, no adnexal masses, non-tender and no cervical motion tenderness RECTOVAGINAL: deferred. NEURO: alert and oriented x3,exam grossly non-focal EXTREMITIES: normal ASSESSMENT/PLAN: 1) Health maintenance: Pap/HPV up to date. Mammogram ordered. Nutrition, exercise and routine health maintenance exams reviewed. Calcium/Vitamin D supplementation information provided. 2) Contraception: vasectomy. Contraceptive options reviewed and information provided. 3) STD screening: Declined STD check. 4) Follow up one year or sooner as needed Ann Cole APRN.CNP CNOV Observed: 07/21/2018 Status: COMPLETED Source: [place] 8:00 AM [facility] REPOSITORY Office Visit (WOOB) TJ,QUITA R ([id number]) 1975 F Date Time Provider Department 07/21/18 8:00 AM ANN COLE (YULY) WOOB During your visit today, we recorded the following information about you: Blood pressure Weight Height Last Period 110/60 55 kg 1.562 m 06/29/18 Ann Cole APRN.CNP 07/21/2018 8:55 AM Signed Quita Villalbaman is a 43 year old who presents for her annual gynecologic exam without complaints. Menses: cycles every 25-30 days and 2-4 days of flow. Contraception: vasectomy HPV vaccine: N/A Last Pap: 2015 normal HPV: negative History of abnormal pap: Yes Last mammogram: 2015normal Sexually active: Yes Pain with intercourse: No Postcoital bleeding: No Hot flashes: No Night sweats: No Obstetric History T0 L2 SAB0 TAB0 Ectopic0 Multiple0 Live Births0 PAST MEDICAL HISTORY Diagnosis Date - Biliary colic 11/22/2015 - NONE PAST SURGICAL HISTORY Procedure Laterality Date - CORRECT BUNION,SIMPLE 1994 LEFT FOOT - EGD W/O OR W/BRUSH/WASH 09/06/2015 EGD - GALLBLADDER/EF 12/2015 FAMILY HISTORY Problem Relation Age of Onset - Diabetes Mother - Hypertension Mother - Breast Cancer Mother age 61, was tested and neg - Hypertension Father - other (liver disease) Father - Breast Cancer Maternal Grandmother - Diabetes Maternal Grandmother - Hypertension Maternal Grandmother - Breast Cancer Other MATERNAL GREAT AUNTS X2 - Hypertension Sister - Diabetes Sister SOCIAL HISTORY Social History Substance Use Topics - Smoking status: Never Smoker - Smokeless tobacco: Never Used - Alcohol use Yes Comment: occasionally REVIEW OF SYSTEMS Abdomen: No abdominal pain, nausea, vomiting, diarrhea, or constipation. No bloating, early satiety, indigestion, or increased flatulence. Bladder: No dysuria, gross hematuria, urinary frequency, urinary urgency. +stress incontinence. Breast: No breast lumps, nipple d/c, overlying skin changes, redness or skin retraction. Allergies and current medication updated:Yes EXAM: Ht 5' 1.5 (1.56m) Wt 121 lb 3.2 oz (55.0kg) LMP 06/29/2018 BMI 22.53 kg/(m2). GENERAL: pleasant, female in no apparent distress HEENT: Normocephalic, atraumatic, mucus membranes moist and no lesions NECK: Supple, full range of motion, no adenopathy and thyroid normal DERMATOLOGY: Normal, without lesions, non-icteric and non-hirsute BREAST: soft, non-tender, symmetric, no dominant mass, normal nipple-areolar complex, no lymphadenopathy and no nipple discharge CHEST: Normal inspiratory effort ABDOMEN: soft, non-tender and no masses PELVIC: external genitalia normal, normal Bartholin's glands, urethra, Earlham's glands, no vulvar lesions, no cervical lesions, good vaginal support, physiologic discharge present, normal appearing perineal body and perianal region, well estrogenized BIMANUAL: uterus normal size, shape and consistency, no adnexal masses, non-tender and no cervical motion tenderness RECTOVAGINAL: deferred. NEURO: alert and oriented x3,exam grossly non-focal EXTREMITIES: normal ASSESSMENT/PLAN: 1) Health maintenance: Pap/HPV up to date. Mammogram ordered. Nutrition, exercise and routine health maintenance exams reviewed. Calcium/Vitamin D supplementation information provided. 2) Contraception: vasectomy. Contraceptive options reviewed and information provided. 3) STD screening: Declined STD check. 4) Follow up one year or sooner as needed Ann Cole, HOSIERY REPAIRER.SUPERVISOR OF WAY Referring Provider: SELF [200] Allergies As of Date: 07/21/2018 Noted Allergy Reaction DOXYCYCLINE 10/30/2005 8 - GI Upset Date Reviewed: 07/21/2018 Reviewed by: Ann Cole - Fully Assessed Reason for Visit: Yearly Exam [187] Primary Visit Diagnosis:Encounter for gynecological examination (general) (routine) without abnormal findings [Z01.419] Other Visit Diagnosis:Visit for screening mammogram [Z12.31] Order(s):[facility] SCREEN[facility] [[id number]] Order #: [id number] FUTURE Prescriptions as of 07/21/2018 Sig: ALBUTEROL SULFATE HFA 90 MCG/* Inhale 2 Puffs as instructed * Problem List As Of Date 07/21/2018 Noted Resolved Mittelschmerz [N94.0] INVALID FOR*08/24/2015 Chronic cholecystitis without calculus [K81.1] INVALID FOR* Medications Discontinued During This Encounter albuterol HFA (PROAIR HFA) 90 mcg/ac* 1 In* 0 06/20/2016 07/21/2018 Route: INHALATION Sig: Inhale 2 Puffs as instructed every 4 hours as needed for Wheezing/Shortness of Breath. Patient not taking: Reported on 02/12/2018 Disc: Reason for discontinue is not on file. benzonatate (TESSALON PERLE) 100 mg * 60 c* 0 01/28/2017 07/21/2018 Route: ORAL Sig: Take 2 capsules by mouth three times daily as needed. Patient not taking: Reported on 02/12/2018 Disc: Reason for discontinue is not on file. omeprazole (PRILOSEC) 20 mg capsule 30 c* 3 08/15/2015 07/21/2018 Route: ORAL Sig: Take 2 capsules by mouth once daily. Disc: Reason for discontinue is not on file. Cosign accepted by MARION HDZ MD[[id number]] on 08/15/2015 4:40 PM Disposition: Return in 1 year (on 07/21/2019) for Annual Exam. Follow-up and Disposition History Recorded Encounter Status:Closed by ANN COLE on 07/21/18 PROGRESS Observed: 02/12/2018 Status: COMPLETED Source: [place] 8:59 AM [facility] REPOSITORY HNO ID: [id number] Author: Henrique Gallego V Service: (none) Author Type: Physician Type: Progress Notes Filed: 02/12/2018 9:01 AM Note Text: Quita is 42 year old female presents with the following : CC: cough, chest congestion, wheezing Symptoms began 3 day(s) ago and gradually worsening since that time. Hx of bronchospasm in past- has albuterol MDI at home but it is . Cough is dry, wheezy, non productive. PAST MEDICAL HISTORY Diagnosis Date - Biliary colic 11/22/2015 - NONE PAST SURGICAL HISTORY Procedure Laterality Date - CORRECT BUNION,SIMPLE 1994 LEFT FOOT - EGD W/O OR W/BRUSH/WASH 09/06/2015 EGD - GALLBLADDER/EF 12/2015 Current Outpatient Prescriptions on File Prior to Visit: benzonatate (TESSALON PERLE) 100 mg capsule Take 2 capsules by mouth three times daily as needed. (Patient not taking: Reported on 02/12/2018 ) albuterol HFA (PROAIR HFA) 90 mcg/actuation inhaler Inhale 2 Puffs as instructed every 4 hours as needed for Wheezing/Shortness of Breath. (Patient not taking: Reported on 02/12/2018 ) omeprazole (PRILOSEC) 20 mg capsule Take 2 capsules by mouth once daily. (Patient not taking: Reported on 02/12/2018 ) No current facility-administered medications on file prior to visit. BP 108/68 (BP Site: Left Arm, BP Position: Sitting, BP Cuff Size: Regular Adult) Pulse 80 Temp 37.8 ?C (100 ?F) (Tympanic) Wt 54.9 kg (121 lb) SpO2 97% BMI 21.95 kg/m? Exam: General Appearance: alert and active in no apparent distress Skin: Negative for lesions, rash, and itching. Hydration: well hydrated Ears: External ears normal, canals clear Nose / Sinus: Nares normal. Septum midline. Mucosa normal. No drainage or sinus tenderness. Pharnyx: no erythema Neck:supple, no adenopathy Heart: Regular Rate and Rhythm without murmurs or clicks Lungs: wheezing with exhalation in anterior and posterior lung zhu Assessment: asthmatic bronchitis Plan: Signed Prescriptions Disp Refills predniSONE (DELTASONE) 10 mg tablet 21 tablet 0 Sig: Take 4 tabs daily for 3 days, then 2 tabs daily for 3 days, then 1 tab daily for 3 days with food. albuterol HFA (PROAIR HFA) 90 mcg/actuation inhaler 1 Inhaler 0 Sig: Inhale 2 Puffs as instructed every 4 hours as needed. codeine-guaiFENesin (ROBITUSSIN AC) 10-100 mg/5 mL syrup 120 mL 0 Sig: Take 5-10 mL by mouth four times daily as needed for Cough for up to 10 days. May cause drowsiness. JA Class: C-V ANNE: No Expected course of the illness explained to patient .Henrique Gallego DO CNOV Observed: 02/12/2018 Status: COMPLETED Source: [place] 8:30 AM [facility] REPOSITORY Office Visit (WSTR) TJQUITA HICKS ([id number]) 1975 F Date Time Provider Department 02/12/18 8:30 AM HENRIQUE GALLEGO V [facility] During your visit today, we recorded the following information about you: Temperature Pulse Blood pressure Weight 100 degrees 80/minute 108/68 54.9 kg Henrique Gallego DO 02/12/2018 9:01 AM Signed Quita is 42 year old female presents with the following : CC: cough, chest congestion, wheezing Symptoms began 3 day(s) ago and gradually worsening since that time. Hx of bronchospasm in past- has albuterol MDI at home but it is . Cough is dry, wheezy, non productive. PAST MEDICAL HISTORY Diagnosis Date - Biliary colic 11/22/2015 - NONE PAST SURGICAL HISTORY Procedure Laterality Date - CORRECT BUNION,SIMPLE 1994 LEFT FOOT - EGD W/O OR W/BRUSH/WASH 09/06/2015 EGD - GALLBLADDER/EF 12/2015 Current Outpatient Prescriptions on File Prior to Visit: benzonatate (TESSALON PERLE) 100 mg capsule Take 2 capsules by mouth three times daily as needed. (Patient not taking: Reported on 02/12/2018 ) albuterol HFA (PROAIR HFA) 90 mcg/actuation inhaler Inhale 2 Puffs as instructed every 4 hours as needed for Wheezing/Shortness of Breath. (Patient not taking: Reported on 02/12/2018 ) omeprazole (PRILOSEC) 20 mg capsule Take 2 capsules by mouth once daily. (Patient not taking: Reported on 02/12/2018 ) No current facility-administered medications on file prior to visit. BP 108/68 (BP Site: Left Arm, BP Position: Sitting, BP Cuff Size: Regular Adult) Pulse 80 Temp 37.8 ?C (100 ?F) (Tympanic) Wt 54.9 kg (121 lb) SpO2 97% BMI 21.95 kg/m? Exam: General Appearance: alert and active in no apparent distress Skin: Negative for lesions, rash, and itching. Hydration: well hydrated Ears: External ears normal, canals clear Nose / Sinus: Nares normal. Septum midline. Mucosa normal. No drainage or sinus tenderness. Pharnyx: no erythema Neck:supple, no adenopathy Heart: Regular Rate and Rhythm without murmurs or clicks Lungs: wheezing with exhalation in anterior and posterior lung zhu Assessment: asthmatic bronchitis Plan: Signed Prescriptions Disp Refills predniSONE (DELTASONE) 10 mg tablet 21 tablet 0 Sig: Take 4 tabs daily for 3 days, then 2 tabs daily for 3 days, then 1 tab daily for 3 days with food. albuterol HFA (PROAIR HFA) 90 mcg/actuation inhaler 1 Inhaler 0 Sig: Inhale 2 Puffs as instructed every 4 hours as needed. codeine-guaiFENesin (ROBITUSSIN AC) 10-100 mg/5 mL syrup 120 mL 0 Sig: Take 5-10 mL by mouth four times daily as needed for Cough for up to 10 days. May cause drowsiness. JA Class: C-V ANNE: No Expected course of the illness explained to patient .Henrique Gallego DO Referring Provider: SELF [200] Allergies As of Date: 02/12/2018 Noted Allergy Reaction DOXYCYCLINE 10/30/2005 8 - GI Upset Date Reviewed: 02/12/2018 Reviewed by: Fabiola Kelly Ma - Fully Assessed Reason for Visit: Nasal Congestion [235] Cmt: nasal congestion, body aches, fatigue, cough, burning in chest when coughing X 2 days Primary Visit Diagnosis:Viral bronchitis [J20.8] Other Visit Diagnosis:Viral URI with cough [J06.9, B97.89] Order(s):predniSONE (DELTASONE) 10 mg tabletTake 4 tabs daily for 3 days, then 2 tabs daily for 3 days, then 1 tab daily for 3 days with food.Disp: 21 tabletRfl: 0 albuterol HFA (PROAIR HFA) 90 mcg/actuation inhalerInhale 2 Puffs as instructed every 4 hours as needed.Disp: 1 InhalerRfl: 0 codeine-guaiFENesin (ROBITUSSIN AC) 10-100 mg/5 mL syrupTake 5-10 mL by mouth four times daily as needed for Cough for up to 10 days. May cause drowsiness.Disp: 120 mLRfl: 0 Prescriptions as of 02/12/2018 Sig: PREDNISONE 10 MG TABLET Take 4 tabs daily for 3 days,* ALBUTEROL SULFATE HFA 90 MCG/* Inhale 2 Puffs as instructed * CODEINE 10 MG-GUAIFENESIN 100* Take 5-10 mL by mouth four ti* BENZONATATE 100 MG CAPSULE Take 2 capsules by mouth thre* Patient not taking: Reported on 02/12/2018 ALBUTEROL SULFATE HFA 90 MCG/* Inhale 2 Puffs as instructed * Patient not taking: Reported on 02/12/2018 OMEPRAZOLE 20 MG CAPSULE,ELLIOT* Take 2 capsules by mouth once* Patient not taking: Reported on 02/12/2018 Problem List As Of Date 02/12/2018 Noted Resolved Blairchmerz [N94.0] INVALID FOR*08/24/2015 Chronic cholecystitis without calculus [K81.1] INVALID FOR* Prescriptions ordered this encounter Disp Refills Start End PREDNISONE 10 MG TABLET 21 t* 0 02/12/2018 02/21/2018 Sig: Take 4 tabs daily for 3 days, then 2 tabs daily for 3 days, then 1 tab daily for 3 days with food. ALBUTEROL SULFATE HFA 90 MCG/ACTUATI* 1 In* 0 02/12/2018 Route: INHALATION Sig: Inhale 2 Puffs as instructed every 4 hours as needed. CODEINE 10 MG-GUAIFENESIN 100 MG/5 M* 120 * 0 02/12/2018 02/22/2018 Class: Print RX Route: ORAL Sig: Take 5-10 mL by mouth four times daily as needed for Cough for up to 10 days. May cause drowsiness. Medications Discontinued During This Encounter codeine-guaiFENesin (ROBITUSSIN AC) * 120 * 0 07/28/2017 02/12/2018 Class: Print RX Route: ORAL Sig: Take 5-10 mL by mouth four times daily as needed for Cough. May cause drowsiness. Patient not taking: Reported on 02/12/2018 Disc: Reason for discontinue is not on file. Encounter Status:Closed by HENRIQUE GALLEGO DO, V on 02/12/18 ALLERGIES ALLERGIES DATE TYPE / CODE NAME / CODE REACTION SEVERITY SOURCE 07/25/2015 Drug Sulfa (Sulfonamide Unknown Unknown [place] Allergy/416 Antibiotics)/F0010 [facility] [id number](SNOM 06126(RXNORM) Hospital ED CT) Repository 10/30/2005 DRUG DOXYCYCLINE GI UPSET Low [facility] INGREDI/[facility] Main [place] [id number](SNOM Repository ED CT) ENCOUNTERS ENCOUNTERS ADMIT/DISCHARGE ACCOUNT ADMITTING ENCOUNTER LOCATION SOURCE NUMBER CLASS 10/05/2018 [id number] [facility] ing:MTLAB Repository 09/25/2018 [id number] [facility] ing:US Repository 09/21/2018 [id number] [facility] ing:MTLAB Repository 08/31/2018/08/31/20 [id number] Ambulatory [address] Repository 08/31/2018/09/01/20 [id number] Ambulatory [address] Repository 08/27/2018/08/28/[id number] Repository 08/19/2018/08/19/[id number] Repository 08/19/2018/08/19/[id number] Repository 07/29/2018/07/29/[id number] Repository 07/21/2018/07/22/[id number] Repository 02/12/2018/02/14/[id number] Repository PAYERS PAYERS ENCOUNTER GUARANTOR PAYER SUBSCRIBER SOURCE 10/05/2018 LISA Lynn Primary QUITA R Maco [id number] Insurance:MEDICAL ACKERMANDOB: [facility] KEON Greer [id number] [address]Lfx: Number: Repository [id number] (HP) Date:[id number] [address] [place] [phone]: 10/05/2018 Secondary NOT GIVENUNK [place] Insurance:SELF PAY [facility] Number: Effective Repository Date:2018-10-05 09/25/2018 LISA O Primary QUITA R [place] [id number] Insurance:MEDICAL ACKERMANDOB: [facility] [id number] [address]Nbb: Number: Repository [id number] (HP) Date:[id number] [address] [place] [phone]: 09/25/2018 Secondary NOT GIVENUNK [place] Insurance:SELF PAY [facility] Number: Effective Repository Date:2018-09-21 09/21/2018 LISA O Primary QUITA R Mac[place] [id number] Insurance:MEDICAL ACKERMANDOB: [facility] [id number] [address]Nub: Number: Repository [id number] (HP) Date:[id number] [address] [place] [phone]: 09/21/2018 Secondary NOT GIVENUNK [place] Insurance:SELF PAY [facility] Number: Effective Repository Date:2018-09-21
== END ==
PROVIDERS: Family Provider Family Medicine; PCP Family Medicine; Referring Provider Internal Medicine Gastroenterology; Visit Provider Internal Medicine Gastroenterology
DX: R10.11 Right upper quadrant pain (principal)
CPT/HCPCS: 36415; 80076; 83690; 86140

== ENCOUNTER → 2018-10-13 09:42 | Outpatient (CLI) | payer OTHER, SELFPAY ==
--- NOTE | 2018-10-13 09:44 | NM_ITS ---
CLINICAL: 43-year-old female with reported history of abdominal pain and nausea. SEMI-SOLID PHASE 99m Tc SULFUR COLLOID GASTRIC EMPTYING STUDY COMPARISON: None available FINDINGS: The patient was administered 1.1 mCi of 99m Tc sulfur colloid mixed with oatmeal and consumed per os. Image acquisitions in the anterior-posterior projection for a total of 60 minutes. There is prompt visualization of the stomach. There is no gastroesophageal reflux identified. First order kinetics are maintained throughout the duration of the acquisitions. The T1/2 linear fit was calculated to be 81.89 minutes, (Normal: 12-56 minutes). NM/Gastric Emptying Study IMPRESSION: 1. ABNORMAL 99m Tc sulfur colloid semi-solid phase (oatmeal) gastric emptying imaging examination. A. There is delayed semi-solid phase gastric emptying compared to normal controls with maintained first order kinetics throughout all components of the examination. (Manny et al, J Nucl Med Tech 38: 186, 2010). Electronically Signed: Mor Saez DO at 10:36 EST Tel , Service support ,
== END ==
PROVIDERS: Family Provider Family Medicine; PCP Family Medicine; Referring Provider Internal Medicine Gastroenterology; Visit Provider Internal Medicine Gastroenterology
DX: R11.2 Nausea with vomiting, unspecified (principal)
CPT/HCPCS: 78264; A9541

== ENCOUNTER → 2022-01-02 | Outpatient (CLI) | payer OTHER, SELFPAY ==
--- NOTE | 2022-01-02 07:47 | US_ITS ---
STUDY: ABDOMINAL ULTRASOUND REASON FOR EXAM: Female, 46 years old. ABDOMINAL PAIN Left upper quadrant pain TECHNIQUE: Transabdominal ultrasound was performed with real-time and static conway scale imaging. COMPARISON: None. FINDINGS: Liver: There is normal echogenicity of the liver. The bile ducts are within normal limits. There is hepatic color flow. The direction of portal flow is hepatopetal. There is no demonstrated mass lesion. Gallbladder: The patient is status post cholecystectomy. Common Bile Duct (C.B.D.): The common bile duct measures ( in mm): 3 Pancreas: Normal size of the head and body of the pancreas. There is normal echogenicity of the pancreas. There is no demonstrated pancreatic mass or cyst. Spleen: Normal size of the spleen. The spleen measures 11.5 cm. Right Kidney: Normal size of the right kidney. The right kidney measures 9.8 x 4 .9 cm. .There is a normal cortex of the kidney. There is no demonstrated renal mass or cyst. There is no right hydronephrosis. Left Kidney: Normal size of the left kidney. The left kidney measures 9.8 x 4 .8 cm. . There is a normal cortex of the left kidney. There is no demonstrated renal mass or cyst. There is no left hydronephrosis. Aorta: 20 mm in maximal aortic diameter. I.V.C.: The IVC is patent. There is no ascites. US/Abdomen Complete IMPRESSION: No acute findings. Electronically Signed: Ruddy Saldana MD at 16:35 EDT ,
== END | disposition home or self-care (01) ==
LOC: US 07:47
PROVIDERS: PCP Family Medicine; Visit Provider Family Medicine
DX: R10.12 Left upper quadrant pain (principal)
CPT/HCPCS: 76700

== ENCOUNTER → 2023-12-25 | Outpatient (CLI) | payer OTHER, SELFPAY ==
[2023-12-25 15:22] LABS: Absolute Neutrophil Count 2.5 X10^3/uL (2.0-7.7); Basophil# 0.05 X10^3/uL; Basophil% 1.2 % (0-1); Eosinophil# 0.08 X10^3/uL; Eosinophils% 1.9 % (0-5); Hematocrit 42.2 % (37-47); Lymphocyte % 30.7 % (19-41); Mean Corp Hgb Conc 33.2 g/dL (32-36); Mean Corpuscular Hgb 30.3 pg (27.0-32.0); Mean Corpuscular Volume 91.3 fL (81-99); Mean Platelet Vol. 9.8 fl (6.2-12.0); Monocyte# 0.28 X10^3/uL; Monocyte% 6.6 % (0-10); NRBC Flagged by Analyzer 0 % (0-5); Neutrophil # 2.51 X10^3/uL (2.7-7.7); Neutrophil % 59.4 % (47-70); Platelet Count 236 K/mm3 (150-450); RBC Distribution Width CV 12.3 % (11.6-14.6); RBC Distribution Width SD 40.7 fl (35.1-43.9); Red Blood Count 4.62 M/mm3 (4.2-5.4); White Blood Count 4.2 K/mm3 (4.4-11.0)
[2023-12-25 16:43] LABS: Anion Gap 5 (5-15); BUN 12 mg/dL (7-18); BUN/Creat Ratio 14.7 RATIO (10-20); Calcium,Total 9.2 mg/dL (8.5-10.1); Chloride 108 mmol/L (98-107); Cholesterol 208 mg/dL (200); Creatinine, Serum 0.82 mg/dL (0.55-1.02); EST Glomerular Filtration Rate 80 mL/min (>60); Est Glom Filt Rate - Afr Amer 96 mL/min (>60); Glucose 92 mg/dL (74-106); High Density Lipoprotein 60 mg/dL; Potassium 3.5 mmol/L (3.5-5.1); Sodium Level 141 mmol/L (136-145); Triglycerides 120 mg/dL; Very Low Density Lipoprotein 24 mg/dL (5-40)
== END | disposition home or self-care (01) ==
LOC: MTLAB 12:37
PROVIDERS: PCP Family Medicine; Referring Provider Family Medicine; Visit Provider Family Medicine
DX: R00.2 Palpitations (principal)
CPT/HCPCS: 36415; 80048; 80061; 84443; 85025

== ENCOUNTER → 2024-11-22 | Outpatient (CLI) | payer OTHER, SELFPAY | END | disposition home or self-care (01) | LOC: LABSPEC 08:52 | PROVIDERS: PCP Family Medicine; Visit Provider Family Medicine | DX: N30.01 Acute cystitis with hematuria (principal) | CPT/HCPCS: 87086; 87088; 87186 ==

== ENCOUNTER 2024-12-24 08:33 | Emergency (ER) | payer OTHER, SELFPAY ==
[2024-12-24 08:34] VITALS: BP 162/76; PULSE 78; RESP 18; TEMP 36.9; O2SAT 99; BMI 25.6
[2024-12-24 08:45] VITALS: O2SAT 98
--- NOTE | 2024-12-24 08:50 | RAD_ITS ---
EXAM: XR Chest, 2 Views CLINICAL INDICATION: DYSPNEA TECHNIQUE: Frontal and lateral views of the chest. COMPARISON: No relevant prior studies available. FINDINGS: LUNGS AND PLEURAL SPACES: Unremarkable. No consolidation. No pneumothorax. HEART: Unremarkable. No cardiomegaly. MEDIASTINUM: Unremarkable. Normal mediastinal contour. BONES/JOINTS: Unremarkable. No acute fracture. RAD/Chest PA and Lateral IMPRESSION: No acute cardiopulmonary process. Reading Location: [facility]
--- NOTE | 2024-12-24 08:53 | ED.VIS.DYS ---
HPI History of Present Illness Chief Complaint: Asthma Informant: patient Narrative Narrative: 49-year-old female presenting to the emergency room with concerns for asthma. Patient states that through the year she has had episodes similar to today where she feels a heaviness in her chest a weak voice cough. She states that she self diagnosed as viral induced asthma. She states in September she saw ENT and was diagnosed with asthma and was started on Advair 250 as well as albuterol rescue inhaler. She states that she went there had a concern for polyps on her vocal cords but after a scope she was told that the vocal cords appeared normal and that the problem was air movement up from the lungs. She states on Friday she began to have similar symptoms as in the past went to urgent care and was started on a tapering dose of prednisone starting at 40 mg. She states she does not feel any better. Cough is nonproductive. No fevers. No significant nasal congestion. She notes hoarse/weak voice. She notes dyspnea with conversation. She does not feel well enough to climb stairs. She has never saw a director of acquisition marketing or had a formal PFTs. She denies any skin conditions or allergies. She notes a remote history of gastroparesis and was on antacid medicines that because of long-term effects to went off of it. She does not note any significant indigestion and has not had any symptoms of gastroparesis recently. She has not seen her primary care doctor for this. PFSH PFS Home Medications ?Medication ?Instructions ?Recorded ?Last Taken ?Type cholecalciferol (vitamin D3) 50 50 mcg PO QDAY 11/21/24 Unknown History mcg (2,000 unit) capsule zinc gluconate 50 mg tablet 50 mg PO QDAY 11/21/24 Unknown History albuterol sulfate 2.5 mg/3 mL 2.5 mg (3 mL) inhalation Q4H PRN 12/24/24 Unknown Rx (0.083 %) solution for nebulization #25 vials albuterol sulfate 90 mcg/actuation 2 puff inhalation Q4H PRN PRN 12/24/24 Unknown History aerosol inhaler wheezing fluticasone 250 mcg-salmeterol 50 1 ea inhalation BID 12/24/24 Unknown History mcg/dose blistr powdr for inhalation prednisone 10 mg tablet mg PO 12/24/24 12/24/24 History prednisone 20 mg tablet See Rx Instructions .Route 12/24/24 Unknown Rx .COMPLEX #24 tabs Allergy/AdvReac Type Severity Reaction Status Date / Time doxycycline Allergy Vomiting Verified 12/24/24 08:44 Sulfa (Sulfonamide Allergy Unknown Verified 12/24/24 08:44 Antibiotics) Family History Mother Cancer Diabetes Grandmother Diabetes Cancer Sister Diabetes Father Liver disease Social History Smoking Status: Never smoker alcohol intake: never ROS ROS ED Constitutional Constitutional ED: Denies chills, fever(s) or weight loss Eyes Eyes: Denies change in vision or diplopia ENT ENT ED: Reports other Details: Hoarse voice ; Denies ear pain, rhinorrhea or sore throat Cardiovascular Cardiovascular: Denies chest pain, orthopnea, palpitations or racing heartbeat Respiratory/Chest Respiratory/Chest: Reports cough and dyspnea; Denies orthopnea Gastrointestinal Gastrointestinal: Denies abdominal pain, diarrhea, nausea or vomiting Genitourinary Genitourinary ED: Denies dysuria, hematuria or urinary frequency Musculoskeletal Musculoskeletal: Denies arthralgias or myalgias Integumentary Denies abscess or rash Neurologic Neurologic: Denies headache(s) or weakness Psychiatric Psychiatric: Denies anxiety, depression, suicidal ideation or suicidal thoughts Endocrine Endocrinology: Denies polydipsia, polyphagia or polyuria Allergic/Immunologic Allergic/Immunologic ED: Denies mouth swelling, tongue swelling or urticaria EXAM Physical Exam Const Vital Signs: 12/24/24 08:34 12/24/24 08:45 12/24/24 09:09 Temperature 98.4 F Temperature Source Oral Pulse Rate 78 81 Respiratory Rate 18 16 Respiratory Effort Short of Breath Respiratory Depth Normal Respiratory Pattern Normal Normal Blood Pressure 162/76 H Blood Pressure Mean 104 Pulse Ox 99 Oxygen Delivery Method Room Air Room Air 12/24/24 09:09 Temperature Temperature Source Pulse Rate Respiratory Rate Respiratory Effort Respiratory Depth Respiratory Pattern Blood Pressure Blood Pressure Mean Pulse Ox 100 Oxygen Delivery Method Room Air Positive well nourished and well developed General Appearance ED: well developed HEENT Reports normocephalic, head/scalp atraumatic and moist mucous membranes HEENT Narrative: Patient with a weaker than expected/airy voice Eyes PERRL and EOMs intact bilaterally Neck no lymphadenopathy, supple and no JVD Resp normal respiratory effort and clear to auscultation bilaterally Auscultation: diminished lung sounds Cardio regular rate, regular rhythm and no murmurs GI normal to inspection, nondistended, normoactive bowel sounds and non-tender Palpation: soft Back/Spine no CVA tenderness and normal ROM Extremity normal to inspection General Extremety ED: Negative for edema General Extremity: Negative for edema Neuro oriented x3 and CN's II-XII intact bilaterally Sensorium / Orientation: alert Motor Exam: strength 5/5 throughout Psych mental status grossly normal Mood & Affect: Negative for depressed or tearful Skin no rashes or lesions noted and no wounds MDM MDM MDM Narrative Medical decision making narrative: Differential diagnosis includes but not limited to laryngitis viral syndrome bronchospasm pulmonary fibrosis pneumonia bronchitis GERD pneumothorax pleural effusion Plan interpretation of the chest x-ray is no acute process. Patient received a DuoNeb. Unfortunately peak flows were obtained only after the DuoNeb. They are 250/300/300. Patient felt last heaviness in the chest after the treatment but I still did not hear any wheezing again. We will instruct her on pocket chamber. She has a nebulizer at home and I can write for albuterol solution. We are going to do higher strength prednisone and do a taper since she has already been on it for 3 days. I will refer her to pulmonology. Patient is comfortable with that plan. History & Record Review Discussion w/independent historian: Patient Radiography Diagnostic Testing: Clinical Impression(s) from Imaging Studies Chest X-Ray 12/24/24 08:50 IMPRESSION: No acute cardiopulmonary process. Reading Location: [facility] Discharge Plan Triage Chief Complaint: Asthma ED Provider: Edinson Cruz Dx/Rx/DC Orders Clinical Impression: Laryngitis, Acute dyspnea Prescriptions: New prednisone 20 mg tablet See Rx Instructions .ROUTE .COMPLEX Qty: 24 0RF Rx Instructions: 3 tabs p.o. daily x 4 days then 2 tabs p.o. daily x 4 days then 1 tab p.o. daily x 4 days albuterol sulfate 2.5 mg /3 mL (0.083 %) solution for nebulization 2.5 mg inhalation Q4H PRN Qty: 25 0RF Rx Instructions: Use q4 hours and PRN for wheezing No Action cholecalciferol (vitamin D3) 50 mcg (2,000 unit) capsule 50 mcg PO QDAY zinc gluconate 50 mg tablet 50 mg PO QDAY prednisone 10 mg tablet PO albuterol sulfate 90 mcg/actuation HFA aerosol inhaler 2 puff inhalation Q4H PRN PRN (Reason: wheezing) fluticasone propion-salmeterol 250-50 mcg/dose blister with device 1 ea inhalation BID Primary Care Provider: Kaylie Hankins Referrals: Kaylie Hankins MD [Primary Care Provider] - John Lobo DO [Med Staff - Active Staff] - (for pulmonary follow up) Activity Restrictions/Additional Instructions: Please use the spacer with your albuterol MDI. You may do 2 puffs every 2 hours or sooner if needed. Print Language: Romansh
[2024-12-24] MEDS: Ipratropium/Albuterol Sulfate 3 ML AMPUL.NEB INHALATION (09:07)
[2024-12-24 09:09] VITALS: PULSE 81; RESP 16; O2SAT 100
[2024-12-24 09:32] VITALS: BP 150/78; PULSE 70; RESP 16; TEMP 36.3; O2SAT 99
[2024-12-24] MEDS: INHALER, ASSIST DEVICES 1 EACH SPACER INHALATION (09:32)
== END 2024-12-24 09:34 | disposition home or self-care (01) ==
LOC: ED 09:18
PROVIDERS: Emergency Provider Emergency Medicine; PCP Family Medicine; Visit Provider Emergency Medicine
DX: J04.0 Acute laryngitis (principal); R06.00 Dyspnea, unspecified
CPT/HCPCS: 71046; 94640; 99282

== ENCOUNTER → 2025-01-11 | Outpatient (CLI) | payer OTHER, SELFPAY ==
[2025-01-11 07:10] LABS: Absolute Lymphocyte Count 1.51 X10^3/uL (0.83-4.51); Absolute Neutrophil Count 1.7 X10^3/uL (2.0-7.7); Basophil# 0.05 X10^3/uL; Basophil% 1.4 % (0-1); Eosinophils% 2.8 % (0-5); Hematocrit 39.4 % (37-47); Hemoglobin 13.7 g/dL (12.0-15.0); Lymphocyte # 1.51 X10^3/ul (0.83-4.51); Lymphocyte % 42.1 % (19-41); Mean Corp Hgb Conc 34.8 g/dL (32-36); Mean Corpuscular Volume 89.1 fL (81-99); Mean Platelet Vol. 9.3 fl (6.2-12.0); Monocyte# 0.25 X10^3/uL; NRBC Flagged by Analyzer 0 % (0-5); Neutrophil # 1.67 X10^3/uL (2.7-7.7); Neutrophil % 46.4 % (47-70); Platelet Count 181 K/mm3 (150-450); RBC Distribution Width CV 12.7 % (11.6-14.6); RBC Distribution Width SD 41.5 fl (35.1-43.9); Red Blood Count 4.42 M/mm3 (4.2-5.4); White Blood Count 3.6 K/mm3 (4.4-11.0)
[2025-01-15 14:08] LABS: Alternaria tenuis <0.10 kU/L (Class 0); Ash, White <0.10 kU/L (Class 0); Aspergillus fumigatus <0.10 kU/L (Class 0); Bermuda Grass <0.10 kU/L (Class 0); Birch <0.10 kU/L (Class 0); Black Walnut <0.10 kU/L (Class 0); Cat Hair / Dander,Stand <0.10 kU/L (Class 0); Cedar, Mountain <0.10 kU/L (Class 0); Cladosporium herbarum <0.10 kU/L (Class 0); Cockroach, American <0.10 kU/L (Class 0); Cottonwood <0.10 kU/L (Class 0); D farinae Mite <0.10 kU/L (Class 0); D pteronyssinus <0.10 kU/L (Class 0); Dog Epithelia <0.10 kU/L (Class 0); Elm, American White <0.10 kU/L (Class 0); Immunoglobulin E 3 IU/mL (6-495); Maple/Box Elder <0.10 kU/L (Class 0); Mouse Urine <0.10 kU/L (Class 0); Mulberry, White <0.10 kU/L (Class 0); Oak, White <0.10 kU/L (Class 0); Pecan <0.10 kU/L (Class 0); Penicillium Notatum <0.10 kU/L (Class 0); Pigweed, Rough <0.10 kU/L (Class 0); Ragweed, Short/Common <0.10 kU/L (Class 0); Russian Thistle <0.10 kU/L (Class 0); Sheep Sorrel <0.10 kU/L (Class 0); Sycamore, American <0.10 kU/L (Class 0); Timothy Grass <0.10 kU/L (Class 0)
[2025-01-15 16:09] LABS: Aspirgillus flavus Negative (Neg:<1:1); Aspirgillus fumigatus Negative (Neg:<1:1); Aspirgillus niger Negative (Neg:<1:1); Cytoplasmic Ab (C-ANCA) <1:20 titer (Neg:<1:20); Immunoglobulin E 3 IU/mL (6-495); Perinuclear Ab (P-ANCA) <1:20 titer (Neg:<1:20)
== END | disposition home or self-care (01) ==
LOC: PSN 06:46
PROVIDERS: PCP Family Medicine; Referring Provider Internal Medicine Critical Care Medicine; Visit Provider Internal Medicine Critical Care Medicine
DX: J45.909 Unspecified asthma, uncomplicated (principal)
CPT/HCPCS: 36415; 82785; 85025; 86003; 86037; 86606; 94060; 94726; 94729

== ENCOUNTER → 2025-03-01 | Outpatient (CLI) | payer OTHER, SELFPAY ==
--- OUTSIDE RECORDS SUMMARY | 2025-03-01 06:52 | XMS RPT_ITS | CCD ---
Author Organization [facility] CliniSym[facility] Care Team Providers Care [place] Guide Name Role Phone KARLY HURTADO Referring Unavailable Jolliff, Kaylie Elian Primary Care Provider Cr Kaylie Elian Primary Care Provider Cr Kaylie Elian Primary Care Provider [phone] Cr Kaylie Elian Primary Care Provider Cr Kaylie Elian Primary Care Provider Dr. Kaylie Streeter MD Primary Care Provider Dr. Kaylie Streeter MD Referring Provider [facility] David BELTRAN Attending Provider Dr. Kaylie Streeter MD Attending Provider JOERVIN, KAYLIE ELIAN Primary Care Unavailable JOLLIFF, KAYLIE ELIAN Primary Care Unavailable JOLLIFF, KAYLIE ELIAN Primary Care Unavailable JOLLIFF, KAYLIE ELIAN Primary Care Unavailable Dr. Edinson Cruz DO Emergency Provider Dr. Edinson Cruz DO Attending Provider Dr. John Lobo DO Attending Provider Dr. John Lobo DO Referring Provider [phone] Cr, Kaylie S Primary Care Unavailable John Lobo Attending Unavailable John Lobo Referring Unavailable Edinson Cruz Attending Unavailable Jolliff, Kaylie S Primary Care Unavailable Jolliff, Kaylie S Primary Care Unavailable Emily Mccain NP Attending Unavailable Emily Mccain NP Referring Unavailable Jolliff, Kaylie S Primary Care Unavailable John Lobo Attending Unavailable Jolliff, Kaylie S Referring Unavailable Jolliff, Kaylie S Primary Care Unavailable Emily Mccain NP Attending Unavailable Jolliff, Kaylie S Referring Unavailable David Moon NP Attending Unavailable Kaylie Streeter Primary Care Unavailable Kaylie Streeter Referring Unavailable Kaylie Streeter Primary Care Unavailable Kaylie Streeter Attending Unavailable Emily Perez Attending Provider Allergies Allergy Classification Reported Allergen(s) Allergy Type Date of Onset Reaction(s) Facility (17 sources) Doxycycline; Translations: [DOXYCYCLINE] Drug Allergy 6 GI Upset [facility] Other [facility] (5 sources) Sulfonamides (Antibiotic) Allergy to substance 5 Unknown [facility] (1 source) Sulfonamides (Antibiotic) Drug allergy (disorder) 5 [facility] Medications Current Medications Medication Drug Class(es) Dates Sig (Normalized) Sig (Original) [id number] 200 actuat albuterol 0.09 mg/actuat metered dose inhaler (18 sources) beta2-Adrenergic Agonist Start: 12-24-2024 take 2.5 mg by inhalation every four hours as needed for wheezing Albuterol Sulfate 2.5 mg /3 mL (0.083 %) solution for nebulization Active 2.5 mg INHALATION EVERY 4 HOURS NEEDED December 24, 2024 12:00am Use q4 hours and PRN for wheezing Start: 12-24-2024 Albuterol Sulf ate 90 mcg/actuation HFA aerosol inhaler Active 2 NMA INHALATION EVERY 4 HOURS NEEDED as needed for wheezing December 24, 2024 12:00am Start: 02-12-2018 End: 12-20-2024 take 2 puff(s) by inhalation every four hours as needed for wheezing albuterol HFA (PROVENTIL HFA, VENTOLIN HFA) 90 mcg/actuation inhaler Indications: Exacerbation of intermittent asthma, unspecified asthma severity (HCC) Inhale 2 puffs as instructed every 4 hours as needed for wheezing/shortness of breath. 1 each 12/20/2024 Active Comment on above: Inhale 2 Puffs as in structed every 4 hours as needed. Inhale 2 Puffs as in structed every 4 hours as needed for wheezing/shortness of breath. amoxicillin 875 mg / clavulanate 125 mg oral tablet (1 source) Penicillin-class Antibacterial Start: End: take 1 tablet by mouth twice daily amoxicillin-clavulana te potassium (AUGMENTIN) 875-125 mg per tablet Indications: Rhinosinusitis Take 1 tablet by mouth two times a day for 7 days. 14 tablet 09/18/2024 09/25/2024 Active benzonatate 100 mg oral capsule (2 sources) Non-narcotic Antitussive Start: End: take 1 capsule by mouth three times daily as needed for cough benzonatate (TESSALON PERLE) 100 mg capsule Indications: Acute URI Take 1 capsule by mouth three times a day as needed for cough for up to 7 days. 21 capsule 09/11/2024 09/18/2024 Active cholecalciferol 0.05 mg oral capsule (4 sources) Vitamin D Start: take 1 capsule by mouth once daily Cholecalciferol (Vitamin D3) 50 mcg (2,000 unit) capsule Active 50 ug PO daily November 21, 2024 1:00am fluticasone propionate 0.05 mg/actuat metered dose nasal spray (4 sources) Corticosteroid Start: take 2 spray(s) by mouth once daily fluticasone (FLONASE) 50 mcg/actuation nasal spray Indications: ETD (Eustachian tube dysfunction), left Use 2 Sprays in each nostril once daily. Rinse mouth after use. 1 Each 01/16/2024 Active Fluticasone Propion-Salmeterol (4 sources) Corticosteroid, beta2-Adrenergic Agonist Start: Fluticasone Propion-Salmeterol 250-50 mcg/dose blister with device Active 1 NMA INHALATION TWICE A DAY December 24, 2024 12:00am take 1 puff(s) by in halation twice daily fluticasone-salmeterol (ADVAIR DISKUS) 2 50-50 mcg/dose inhaler Inhale 1 puff as instructed two times a day. Active Inhalational Spacing Device (2 sources) Start: 12-20-2024 End: 12-20-2024 Inhalational Spacing Device Indications: Exacerbation of intermittent asthma, unspecified asthma severity (HCC) 1 device one time only for 1 dose. 1 each 12/20/2024 12/20/2024 Active Start: 12-29-2022 End: 12-29-2022 Inhalational Spacing Device Indications: Exacerbation of intermittent asthma, unspecified asthma severity 1 Device one time only for 1 dose. 1 Each 0 12/29/2022 12/29/2022 Active Comment on above: 1 Device one time on ly for 1 dose. omeprazole 40 mg delayed release oral capsule (10 sources) Proton Pump Inhibitor Omeprazole 40 mg capsule Take 40 mg by mouth as needed (gerd). as necessary Active Comment on above: Take 40 mg by mouth once daily. Take 40 mg by mouth once daily. as necessary promethazine hydrochloride 12.5 mg oral tablet (10 sources) Phenothiazine Start: 09-23-19 19 take 1 tablet by mouth every eight hours for nausea promethazine (PHENERGAN) 12.5 mg tablet Indications: Nausea take 1 tablet by mouth every 8 hours if needed for nausea 0 09/23/2018 Active Comment on above: take 1 tablet by che th every 8 hours if needed for nausea zinc gluconate 50 mg oral tablet (4 sources) Start: 11-22-19 take 1 tablet by mouth once daily Zinc Gluconate 50 mg tablet Active 50 mg PO daily November 21, 2024 1:00am Completed/Discontinued Medications Medication Drug Class(es) Dates Sig (Normalized) Sig (Original) nitrofurantoin, macrocrystals 25 mg / nitrofurantoin, monohydrate 75 mg oral capsule (4 sources) Nitrofuran Antibacterial Start: 11-21-2024 End: 11-28-2024 take 1 capsule by mouth every twelve hours at mealtime Nitrofurantoin Monohyd/M-Cryst (Macrobid) 100 mg capsule Discontinued 100 mg PO Q12H 14 7 November 21, 2024 1:00am November 27, 2024 12:00am November 28, 2024 12:15am must administer with a meal/food predniSONE 10 mg oral tablet (10 sources) Start: 12-24-2024 End: 01-05-2025 Prednisone 10 mg tablet Discontinued mg PO December 24, 2024 12:00am January 05, 2025 10:14am Start: 12-24-2024 End: 01-05-2025 take 3 tablets by mouth once daily, then take 2 tablets by mouth once daily, then take 1 tablet by mouth once daily Prednisone 20 mg tablet Discontinued 0 .ROUTE .COMPLEX December 24, 2024 12:00am January 05, 2025 10:14am 3 tabs p.o. daily x 4 days then 2 tabs p.o. daily x 4 days then 1 tab p.o. daily x 4 days Start: 12-20-2024 End: 12-29-2024 predniSONE (DELTASONE) 10 mg tablet Indications: Exacerbation of intermittent asthma, unspecified asthma severity (HCC) Take 4 tabs daily for 3 days, then 2 tabs daily for 3 days, then 1 tab daily for 3 days with food. 21 tablet 12/20/2024 12/29/2024 Active Start: 09-11-2024 End: 09-16-2024 take 1 tablet by mouth twice daily predniSONE (DELTASONE) 20 mg tablet Indications: Acute laryngitis Take 1 tablet by mouth two times a day for 5 days. 10 tablet 09/11/2024 09/16/2024 Active Start: 12-29-2022 End: 01-07-2023 predniSONE (DELTASONE) 10 mg tablet Indications: Exacerbation of intermittent asthma, unspecified asthma severity Take 4 tabs daily for 3 days, then 2 tabs daily for 3 days, then 1 tab daily for 3 days with food. 21 tablet 0 12/29/2022 01/07/2023 Active Comment on above: Take 4 tabs daily fo r 3 days, then 2 tabs daily for 3 days, then 1 tab daily for 3 days with food. Problems Active Problems Problem Classification Problem Date Documented Da te Episodic/Chronic Asthma (8 sources) Exacerbation of intermittent asthma; Translations: [Mild intermittent asthma with (acute) exacerbation] Onset: 02-16-2025 Chronic Nausea and vomiting (1 source) Nausea; Translations: [Nausea] Onset: 12-09-2018 Episodic Other circulatory disease (1 source) Elevated blood-pressure reading without diagnosis of hypertension; Translations: [Elevated blood-pressure reading, without diagnosis of hypertension] 01-16-2024 Episodic Other lower respiratory disease (3 sources) Dyspnea; Translations: [Dyspnea, unspecified] 12-24-2024 Episodic Other lower respiratory disease (1 source) Dyspnea, unspecified; Translations: [Dyspnea, unspecified] Onset: 12-29-2024 Episodic Other screening for suspected conditions (not mental disorders or infectious disease) (3 sources) Patient encounter status; Translations: [Encounter for screening mammogram for malignant neoplasm of breast] Episodic Other upper respiratory disease (1 source) Red throat ; Translations: [Other diseases of pharynx] 01-16-2024 Episodic Other upper respiratory infections (1 source) Chronic sinusitis, unspecified; Translations: [Unspecified sinusitis (chronic)] 09-18-2024 Chronic Other upper respiratory infections (6 sources) Viral upper respiratory tract infection; Translations: [Acute upper respiratory infection, unspecified] Episodic Otitis media and related conditions (1 source) Dysfunction of left eustachian tube; Translations: [Unspecified Eustachian tube disorder, left ear] 01-16-2024 Episodic Unclassified (3 sources) for pulmonary follow up Urinary tract infections (9 sources) Urinary tract infectious disease; Translations: [Urinary tract infection, site not specified] Onset: 12-02-2024 11-21-2024 Episodic Past or Other Problems Problem Classification Problem Date Documented Date Episodic/Chronic Biliary tract disease (10 sources) Chronic cholecystitis without calculus; Translations: [Chronic cholecystitis] Onset: 11-29-2015 11-29-2015 Episodic Genitourinary symptoms and ill-defined conditions (1 source) Hematuria, unspecified; Translations: [Hematuria, unspecified] Onset: 11-21-2024 Episodic Other female genital disorders (4 sources) Mittelschmerz; Translations: [Mittelschmerz] Onset: 10-31-2005 Resolved: 08-24-2015 08-24-2015 Chronic Results Test Name Value Interpretation Reference Range Facility Pulmonary Visit Reporton Pulmonary Visit Report [facility] of [address] [place] [address] OFFICE VISIT Date of Service: 02/16/25 MR#: [id number] Acct: [id number] Name: QUITA SPENCER Rep #: [id number] : 1975 Provider: RUBY Mccain Age/Sex: 49/F Location: [facility] Status: Signed Assessment and Plan Assessment and Plan (1) Asthma: Status: Suspected Plan: Still of unclear etiology. Now that we have a normal pulmonary function test we can proceed with a bronchoprovocation. Return to the office once test results are available. If the bronchoprovocation confirms asthma, we will make sure the patient has all the tools needed to respond early to signs of viral bronchitis. If the bronchoprovocation is negative we will need to further evaluate other causes of a chronic cough. We may also need to wait until the patient is in an acute exacerbation to respond. I did explain to the patient the benefit of having a NIOX, this helps us determine if the patient will benefit from systemic corticosteroids. I also encouraged her to be compliant with the use of Wixela, if she has underlying asthma being on a maintenance inhaled corticosteroid can reduce their frequency and duration of systemic corticosteroids. The patient conveys understanding and is agreeable with this plan. She has been encouraged to contact the office if she develops any new or worsening symptoms in the meantime. Orders: Orders Bronchoprovocation Today J45.909 - Unspecified asthma, uncomplicated Plan Details Additional Comments: This note was generated with [employer] dictation software. It may contain incorrect words, spelling, and punctuation that were not noted in checking the note before signing. Follow Up: 6 Weeks HPI 6 wk FU Chief Complaint: Test results HPI Comments Details: This patient presents to the office today to discuss test results. She is ambulatory and currently on room air. She has not recently been seen in the ED or urgent care for any respiratory illness. She has not required antibiotics or prednisone for any breathing problems. She admits that she has not recently been compliant with the use of Wixela. She states that she was unsure of whether or not she should be on it though she for test results. She has had to increase the frequency of her albuterol recently. She denies any difficulty with shortness of breath. She does have a daily cough that is harsh sounding but typically dry. She denies any hemoptysis. She does feel the sense of phlegm or mucus in the back of her throat. She has to clear her throat. She denies any difficulty with wheezing, chest tightness, chest pain or palpitations. She also denies any fever, chills or body aches. She does report that she receives prednisone several times yearly for viral bronchitis. She states that she has received a prednisone course 4 times in the past 6 months. She feels as though symptoms are starting up again. She also admits that the frequency and the severity of her symptoms seem to be progressing over the past few years. Previously she was on high-dose PPI for reflux symptoms. She admits that the frequency of her bronchitis was not impacted by controlling her reflux. She continued to experience a daily cough. She has never felt that postnasal drip was problematic. Test results personally reviewed the patient: Pulmonary function test completed on January 11, 2025. Impression is grossly normal. Lab work also reviewed. 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 Intern Required: No DME Vendor: N/a Accompanied by: Self Is patient in pain?: No Allergies doxycycline Allergy (Verified 02/16/25 07:44) Vomiting Sulfa (Sulfonamide Antibiotics) Allergy (Verified 02/16/25 07:44) Unknown Medications ???Medication ???Instructions ???Recorded ???Confirmed ???Type cholecalciferol (vitamin D3) 50 50 mcg PO QDAY 11/21/24 02/16/25 H istory mcg (2,000 unit) capsule zinc gluconate 50 mg tablet 50 mg PO QDAY 11/21/24 02/16/25 Hi story albuterol sulfate 2.5 mg/3 mL 2.5 mg (3 mL) inhalation Q4H PRN 0 12/24/24 02/16/25 Rx (0.083 %) solution for nebulization #25 vials albuterol sulfate 90 mcg/actuation 2 puff inhalation Q4H PRN PRN 02/16/25 History aerosol inhaler wheezing fluticasone 250 mcg-salmeterol 50 1 ea inhalation BID 12/24/2401/07 History mcg/dose blistr powdr for inhalation Have you fallen in the past year?: No PFSH Family History ... Normal [facility] ANCAon 01-15-2025 Atypical pANCA <1:20 Normal Neg:<1:20 [facility] Comment on above: Result Comment: The atypical pANCA pattern has been observed in a significant percentage of patients with ulcerative colitis, primary sclerosing cholangitis and autoimmune hepatitis. Performed By: #### L 3500.3600, L3300.1200, L100.0100, L5500.0700, L3200.1600 #### [facility] [address] [place], [address] Cytoplasmic Ab <1:20 Normal Neg:<1:20 [facility] Comment on above: Performed By: #### L 3500.3600, L3300.1200, L100.0100, L5500.0700, L3200.1600 #### [facility] [address] [place], [place], [id number] (330) Perinuclear Ab. <1:20 Normal Neg:<1:20 [facility] Comment on above: Result Comment: The presence of positive fluorescence exhibiting P-ANCA or C-ANCA patterns alone is not specific for the diagnosis of Natalie's Granulomatosis (WG) or microscopic polyangiitis. Decisions about treatment should not be based solely on ANCA IFA results. The International ANCA Group Consensus recommends follow up testing of positive sera with both KY- 3 and MPO-ANCA enzyme immunoassays. As many as 5% serum samples are positive only by EIA. Ref. AM J Clin Pathol 1999;111:507-513. Performed By: #### L 3500.3600, L3300.1200, L100.0100, L5500.0700, L3200.1600 #### [facility] [address] [place], [place], [id number] Allergen Resp. Area 5on 05-0 ALTERNARIA TEN <0.10 Normal Class 0 [facility] Comment on above: Order Comment: Reaso n for Exam: ASthma Performed By: #### L 3500.3600, L3300.1200, L100.0100, L5500.0700, L3200.1600 #### [facility] [address] [place], [address] REGINALDO, WHITE <0.10 Normal Class 0 [facility] Comment on above: Order Comment: Reaso n for Exam: ASthma Performed By: #### L 3500.3600, L3300.1200, L100.0100, L5500.0700, L3200.1600 #### [facility] [address] [place], [address] ASPERGILLUS FUM <0.10 Normal Class 0 [facility] Comment on above: Order Comment: Reaso n for Exam: ASthma Performed By: #### L 3500.3600, L3300.1200, L100.0100, L5500.0700, L3200.1600 #### [facility] [address] [place], [address] BERMUDA GRASS <0.10 Normal Class 0 [facility] Comment on above: Order Comment: Reaso n for Exam: ASthma Performed By: #### L 3500.3600, L3300.1200, L100.0100, L5500.0700, L3200.1600 #### [facility] [address] [place], [address] BIRCH <0.10 Normal Class 0 [facility] Comment on above: Order Comment: Reaso n for Exam: ASthma Performed By: #### L 3500.3600, L3300.1200, L100.0100, L5500.0700, L3200.1600 #### [facility] [address] [place], [address] BLACK WALNUT <0.10 Normal Class 0 [facility] Comment on above: Order Comment: Reaso n for Exam: ASthma Performed By: #### L 3500.3600, L3300.1200, L100.0100, L5500.0700, L3200.1600 #### [facility] [address] [place], [address] CAT HAIR/DANDER <0.10 Normal Class 0 [facility] Comment on above: Order Comment: Reaso n for Exam: ASthma Performed By: #### L 3500.3600, L3300.1200, L100.0100, L5500.0700, L3200.1600 #### [facility] [address] [place], [place], [id number] CLADOSPOR HERB <0.10 Normal Class 0 [facility] Comment on above: Order Comment: Reaso n for Exam: ASthma Performed By: #### L 3500.3600, L3300.1200, L100.0100, L5500.0700, L3200.1600 #### [facility] [address] [place], [place], [id number] COCKROACH,AMER <0.10 Normal Class 0 [facility] Comment on above: Order Comment: Reaso n for Exam: ASthma Performed By: #### L 3500.3600, L3300.1200, L100.0100, L5500.0700, L3200.1600 #### [facility] [address] [place], [place], [id number] COMMENT Comment Normal . [facility] Comment on above: Order Comment: Reaso n for Exam: ASthma Result Comment: Eve benavides of Specific IgE Class Description of Class ----- < 0.10 0 Negative 0.10 - 0.31 0/I Equivocal/Low 0.32 - 0.55 I Low 0.56 - 1.40 II Moderate 1.41 - 3.90 III High 3.91 - 19.00 IV Very High 19.01 - 100.00 V Very High >100.00 Very High Performed By: #### L 3500.3600, L3300.1200, L100.0100, L5500.0700, L3200.1600 #### [facility] [address] [place], [place], [id number] COTTONWOOD <0.10 Normal Class 0 [facility] Comment on above: Order Comment: Reaso n for Exam: ASthma Performed By: #### L 3500.3600, L3300.1200, L100.0100, L5500.0700, L3200.1600 #### [facility] [address] [place], [place], [facility] D FARINAE MITE <0.10 Normal Class 0 [facility] Comment on above: Order Comment: Reaso n for Exam: ASthma Performed By: #### L 3500.3600, L3300.1200, L100.0100, L5500.0700, L3200.1600 #### [facility] [address] [place], [place], [facility] D PTERONYSSINUS <0.10 Normal Class 0 [facility] Comment on above: Order Comment: Reaso n for Exam: ASthma Performed By: #### L 3500.3600, L3300.1200, L100.0100, L5500.0700, L3200.1600 #### [facility] [address] [place], [place], [facility] DOG EPITHELIA <0.10 Normal Class 0 [facility] Comment on above: Order Comment: Reaso n for Exam: ASthma Performed By: #### L 3500.3600, L3300.1200, L100.0100, L5500.0700, L3200.1600 #### [facility] [address] [place], [place], [facility] ELM,AMER WHITE <0.10 Normal Class 0 [facility] Comment on above: Order Comment: Reaso n for Exam: ASthma Performed By: #### L 3500.3600, L3300.1200, L100.0100, L5500.0700, L3200.1600 #### [facility] [address] [place], [place], [facility] IMMUNOGLOB E 3 IU/mL Low 6-495 [facility] Comment on above: Order Comment: Reaso n for Exam: ASthma Performed By: #### L 3500.3600, L3300.1200, L100.0100, L5500.0700, L3200.1600 #### [facility] [address] [place], [address] MAPLE/BOX ELDER <0.10 Normal Class 0 [facility] Comment on above: Order Comment: Reaso n for Exam: ASthma Performed By: #### L 3500.3600, L3300.1200, L100.0100, L5500.0700, L3200.1600 #### [facility] [address] [place], [address] MOUNTAIN CEDAR <0.10 Normal Class 0 [facility] Comment on above: Order Comment: Reaso n for Exam: ASthma Performed By: #### L 3500.3600, L3300.1200, L100.0100, L5500.0700, L3200.1600 #### [facility] [address] [place], [place], [facility] Mouse Urine <0.10 Normal Class 0 [facility] Comment on above: Order Comment: Reaso n for Exam: ASthma Performed By: #### L 3500.3600, L3300.1200, L100.0100, L5500.0700, L3200.1600 #### [facility] [address] [place], [place], [facility] MULBERRY,WHITE <0.10 Normal Class 0 [facility] Comment on above: Order Comment: Reaso n for Exam: ASthma Performed By: #### L 3500.3600, L3300.1200, L100.0100, L5500.0700, L3200.1600 #### [facility] [address] [place], [place], [facility] OAK, WHITE <0.10 Normal Class 0 [facility] Comment on above: Order Comment: Reaso n for Exam: ASthma Performed By: #### L 3500.3600, L3300.1200, L100.0100, L5500.0700, L3200.1600 #### [facility] [address] [place], [address] PECAN <0.10 Normal Class 0 [facility] Comment on above: Order Comment: Reaso n for Exam: ASthma Performed By: #### L 3500.3600, L3300.1200, L100.0100, L5500.0700, L3200.1600 #### [facility] [address] [place], [address] PEN NOTATUM <0.10 Normal Class 0 [facility] Comment on above: Order Comment: Reaso n for Exam: ASthma Performed By: #### L 3500.3600, L3300.1200, L100.0100, L5500.0700, L3200.1600 #### [facility] [address] [place], [address] PIGWEED, ROUGH <0.10 Normal Class 0 [facility] Comment on above: Order Comment: Reaso n for Exam: ASthma Performed By: #### L 3500.3600, L3300.1200, L100.0100, L5500.0700, L3200.1600 #### [facility] [address] [place], [address] RAGWEED SH/COM <0.10 Normal Class 0 [facility] Comment on above: Order Comment: Reaso n for Exam: ASthma Performed By: #### L 3500.3600, L3300.1200, L100.0100, L5500.0700, L3200.1600 #### [facility] [address] [place], [address] ALGERIAN THISTLE <0.10 Normal Class 0 [facility] Comment on above: Order Comment: Reaso n for Exam: ASthma Performed By: #### L 3500.3600, L3300.1200, L100.0100, L5500.0700, L3200.1600 #### [facility] [address] [place], [address] SHEEP SORREL <0.10 Normal Class 0 [facility] Comment on above: Order Comment: Reaso n for Exam: ASthma Result Comment: Perf ormed at: [facility] [id number] Carding Machine Operator: Azalea Pérez MD, Phone: [phone] Performed By: #### L 3500.3600, L3300.1200, L100.0100, L5500.0700, L3200.1600 #### [facility] [address] [place], [address] [place], AMER <0.10 Normal Class 0 [facility] Comment on above: Order Comment: Reaso n for Exam: ASthma Performed By: #### L 3500.3600, L3300.1200, L100.0100, L5500.0700, L3200.1600 #### [facility] [address] [place], [place], [facility] VINH GRASS <0.10 Normal Class 0 [facility] Comment on above: Order Comment: Reaso n for Exam: ASthma Performed By: #### L 3500.3600, L3300.1200, L100.0100, L5500.0700, L3200.1600 #### [facility] [address] [place], [address] Aspergillus Antibodieson Asp. flavus Negative Normal Neg:<1:1 [facility] Comment on above: Performed By: #### L 3500.3600, L3300.1200, L100.0100, L5500.0700, L3200.1600 #### [facility] [address] [place], [address] Asp. fumigatus Negative Normal Neg:<1:1 [facility] Comment on above: Performed By: #### L 3500.3600, L3300.1200, L100.0100, L5500.0700, L3200.1600 #### [facility] [address] [place], [place], [id number] Asp. niger Negative Normal Neg:<1:1 [facility] Comment on above: Performed By: #### L 3500.3600, L3300.1200, L100.0100, L5500.0700, L3200.1600 #### [facility] [address] [place], [place], [id number] Immunoglobulin Darren 5 IMMUNOGLOB E QN 3 IU/mL Low 6-495 [facility] Comment on above: Result Comment: Perf ormed at: - [facility] [address] [id number] Carding Machine Operator: Guerrero Lane PhD, Phone: [phone] Performed at: - [facility] [address] [id number] Carding Machine Operator: Azalea Pérez MD, Phone: [phone] Performed By: #### L 3500.3600, L3300.1200, L100.0100, L5500.0700, L3200.1600 #### [facility] [address] [place], [place], [id number] Absolute lymphocyte countOrd ered By: John Loob on 01-11-2025 Lymphocytes Auto (Unsp spec) [#/Vol] 1.51 10*3/uL 0.83-4.51 [facility] Absolute neutrophil countOrd ered By: John Lobo on 01-11-2025 Neutrophils (Bld) [#/Vol] 1.7 10*3/uL Low 2.0-7.7 [facility] Automated lymphocyte count a s percentage of total leukocytesOrdered By: John Lobo on 01-11-2025 Lymphocytes/100 WBC Auto (Unsp spec) 42.1 % High 19-41 [facility] Basophil percentageOrdered B y: John Lobo on 01-11-2025 Basophils/100 WBC (Bld) 1.4 % High 0-1 [facility] CBC W/Diff, Automatedon - Absolute Lymph 1.51 X10 3/uL Normal 0.83-4.51 [facility] Comment on above: Performed By: #### L 3500.3600, L3300.1200, L100.0100, L5500.0700, L3200.1600 #### [facility] [address] [place], [address] Absolute Neut 1.7 X10 3/uL Low 2.0-7.7 [facility] Comment on above: Performed By: #### L 3500.3600, L3300.1200, L100.0100, L5500.0700, L3200.1600 #### [facility] [address] [place], [address] Basophils/100 WBC (Bld) 1.4 % High 0-1 [facility] Comment on above: Performed By: #### L 3500.3600, L3300.1200, L100.0100, L5500.0700, L3200.1600 #### [facility] [address] [place], [address] Eosinophils/100 WBC (Bld) 2.8 % Normal 0-5 [facility] Comment on above: Performed By: #### L 3500.3600, L3300.1200, L100.0100, L5500.0700, L3200.1600 #### [facility] [address] [place], [address] Erythrocyte distribution width (RBC) [Ratio] 12.7 % Normal 11.6-14.6 [facility] Comment on above: Performed By: #### L 3500.3600, L3300.1200, L100.0100, L5500.0700, L3200.1600 #### [facility] [address] [place], [address] Hematocrit (Bld) [Volume fraction] 39.4 % Normal 37-47 [facility] Comment on above: Performed By: #### L 3500.3600, L3300.1200, L100.0100, L5500.0700, L3200.1600 #### [facility] [address] [place], [address] Hemoglobin (Bld) [Mass/Vol] 13.7 g/dL Normal 12.0-15.0 [facility] Comment on above: Performed By: #### L 3500.3600, L3300.1200, L100.0100, L5500.0700, L3200.1600 #### [facility] [address] [place], [address] IG% 0.300 Normal 0.0-0.9 [facility] Comment on above: Result Comment: IG% - Immature Granulocytes (promyelocytes, myelocytes and metamyelocytes) > 1% indicates that a LEFT SHIFT is Present. Performed By: #### L 3500.3600, L3300.1200, L100.0100, L5500.0700, L3200.1600 #### [facility] [address], [address] Lymphocytes/100 WBC (Bld) 42.1 % High 19-41 [facility] Comment on above: Performed By: #### L 3500.3600, L3300.1200, L100.0100, L5500.0700, L3200.1600 #### [facility] [address] [place], [address] MCH (RBC) [Entitic mass] 31.0 pg Normal 27.0-32.0 [facility] Comment on above: Performed By: #### L 3500.3600, L3300.1200, L100.0100, L5500.0700, L3200.1600 #### [facility] [address] [place], [address] MCHC (RBC) [Mass/Vol] 34.8 g/dL Normal 32-36 [facility] Comment on above: Performed By: #### L 3500.3600, L3300.1200, L100.0100, L5500.0700, L3200.1600 #### [facility] [address] [place], [address] MCV (RBC) [Entitic vol] 89.1 fL Normal 81-99 [facility] Comment on above: Performed By: #### L 3500.3600, L3300.1200, L100.0100, L5500.0700, L3200.1600 #### [facility] [address] [place], [address] Monocytes/100 WBC (Bld) 7.0 % Normal 0-10 [facility] Comment on above: Performed By: #### L 3500.3600, L3300.1200, L100.0100, L5500.0700, L3200.1600 #### [facility] [address] [place], [address] Neutrophils/100 WBC (Bld) 46.4 % Low 47-70 [facility] Comment on above: Performed By: #### L 3500.3600, L3300.1200, L100.0100, L5500.0700, L3200.1600 #### [facility] [address] [place], [address] Nucleated RBC (Bld) [#/Vol] 0 10*3/uL Normal 0-5 [facility] Comment on above: Performed By: #### L 3500.3600, L3300.1200, L100.0100, L5500.0700, L3200.1600 #### [facility] [address] [place], [address] Platelet mean volume (Bld) [Entitic vol] 9.3 fL Normal 6.2-12.0 [facility] Comment on above: Performed By: #### L 3500.3600, L3300.1200, L100.0100, L5500.0700, L3200.1600 #### [facility] [address] [place], [address] Platelets (Bld) [#/Vol] 181 10*3/uL Normal 150-450 [facility] Comment on above: Performed By: #### L 3500.3600, L3300.1200, L100.0100, L5500.0700, L3200.1600 #### [facility] [address] [place], [address] RBC (Bld) [#/Vol] 4.42 10*6/uL Normal 4.2-5.4 [facility] Comment on above: Performed By: #### L 3500.3600, L3300.1200, L100.0100, L5500.0700, L3200.1600 #### [facility] [address] [place], [address] RDW SD 41.5 fl Normal 35.1-43.9 [facility] Comment on above: Performed By: #### L 3500.3600, L3300.1200, L100.0100, L5500.0700, L3200.1600 #### [facility] [address] [place], [address] WBC (Bld) [#/Vol] 3.6 10*3/uL Low 4.4-11.0 [facility] Comment on above: Performed By: #### L 3500.3600, L3300.1200, L100.0100, L5500.0700, L3200.1600 #### [facility] [address] [place], [address] Eosinophil percentageOrdered By: John Lobo on 01-11-2025 Eosinophils/100 WBC (Bld) 2.8 % 0-5 [facility] Erythrocyte distribution wid th ratioOrdered By: John Lobo on 01-11-2025 Erythrocyte distribution width (RBC) [Ratio] 12.7 % 11.6-14.6 [facility] Erythrocyte distribution wid th standard deviationOrdered By: John Lobo on 01-11-2025 Erythrocyte distribution width (RBC) [Ratio] 41.5 fl 35.1-43.9 [facility] Hematocrit Auto (Bld) [Volum e fraction]Ordered By: John Lobo on 01-11-2025 Hematocrit (Bld) [Volume fraction] 39.4 % 37-47 [facility] Hemoglobin measurementOrdere d By: John Lobo on 01-11-2025 Hemoglobin (Bld) [Mass/Vol] 13.7 g/dL 12.0-15.0 [facility] IgEOrdered By: John Lobo o n 01-11-2025 IgE 3 IU/mL Low 6-495 [facility] Comment on above: Performed at: [facility] [employer] [id number] Director: Guerrero Lane PhD, Phone: [phone] at: [facility] [employer] [id number] Director: Azalea Pérez MD, Phone: [phone] Immature granulocytes/100 WB C Auto (Bld)Ordered By: John Lobo on 01-11-2025 Immature granulocytes/100 WBC (Bld) 0.300 % 0.0-0.9 [facility] Comment on above: IG% - Immature Granu locytes (promyelocytes, myelocytes and metamyelocytes) > 1% indicates that a LEFT SHIFT is Present. MCV (mean corpuscular volume ) determinationOrdered By: John Lobo on 01-11-2025 MCV (RBC) [Entitic vol] 89.1 fL 81-99 [facility] Mean corpuscular hemoglobin (MCH) determinationOrdered By: John Lobo on 01-11-2025 MCH (RBC) [Entitic mass] 31.0 pg 27.0-32.0 [facility] Mean corpuscular hemoglobin concentration (MCHC) determinationOrdered By: John Lobo on 01-11-2025 MCHC (RBC) [Mass/Vol] 34.8 g/dL 32-36 [facility] Mean platelet volume determi nationOrdered By: John Lobo on 01-11-2025 Platelet mean volume (Bld) [Entitic vol] 9.3 fL 6.2-12.0 [facility] Monocyte percentageOrdered B y: John Lobo on 01-11-2025 Monocytes/100 WBC (Bld) 7.0 % 0-10 [facility] Neutrophil percentageOrdered By: John Lobo on 01-11-2025 Neutrophils/100 WBC (Bld) 46.4 % Low 47-70 [facility] No Panel InformationOrdered By: John Lobo on 01-11-2025 RAST Comment Comment . [facility] Comment on above: Levels of Specific I gE Class Description of Class ----- < 0.10 0 Negative 0.10 - 0.31 0/I Equivocal/Low 0.32 - 0.55 I Low 0.56 - 1.40 II Moderate 1.41 - 3.90 III High 3.91 - 19.00 IV Very High 19.01 - 100.00 V Very High >100.00 Very High Nucleated red blood cell per centageOrdered By: John Lobo on 01-11-2025 Nucleated RBC/100 WBC (Bld) [Ratio] 0 % 0-5 [facility] Platelet countOrdered By: Pino on 01-11-2025 Platelets (Bld) [#/Vol] 181 10*3/uL 150-450 [facility] RBC Auto (Bld) [#/Vol]Ordere d By: John Lobo on 01-11-2025 RBC (Bld) [#/Vol] 4.42 10*6/uL 4.2-5.4 [facility] Serum Niuean sycamore IgE antibody assay (units/volume)Ordered By: John Lobo on 01-11-2025 Niuean [place] IgE Qn (S) <0.10 kU/L Class 0 [facility] Serum Aspergillus flavus ant ibody detection by immunodiffusionOrdered By: John Lobo on 01-11-2025 A. flavus Ab Immune diff Ql (S) Negative Neg:<1:1 [facility] Serum Aspergillus fumigatus IgE antibody assay (units/volume)Ordered By: John Lobo on 01-11-2025 A. fumigatus IgE Qn (S) <0.10 kU/L Class 0 [facility] Serum Aspergillus fumigatus antibody detection by immunodiffusionOrdered By: John Lobo on 01-11-2025 A. fumigatus Ab Immune diff Ql (S) Negative Neg:<1:1 [facility] Serum Aspergillus niger anti body detection by immunodiffusionOrdered By: John Lobo on 01-11-2025 A. niger Ab Immune diff Ql (S) Negative Neg:<1:1 [facility] Serum Bermuda grass IgE anti body assay (units/volume)Ordered By: John Lobo on 01-11-2025 Bermuda grass IgE Qn (S) <0.10 kU/L Class 0 [facility] Serum Cladosporium herbarum IgE antibody assay (units/volume)Ordered By: John Lobo on 01-11-2025 C. herbarum IgE Qn (S) <0.10 kU/L Class 0 [facility] Serum Dermatophagoides ptero nyssinus specific IgE antibody assay (units/volume)Ordered By: John Lobo on 01-11-2025 house dust mite IgE Qn (S) <0.10 kU/L Class 0 [facility] Serum Fraxinus americana IgE antibody assay (units/volume)Ordered By: John Lobo on 01-11-2025 White Reginaldo IgE Qn (S) <0.10 kU/L Class 0 [facility] Serum Rumex acetosella IgE a ntibody assay (units/volume)Ordered By: John Lobo on 01-11-2025 Sheep [place] IgE Qn (S) <0.10 kU/L Class 0 [facility] Comment on above: Performed at: [address] [id number] Director: Azalea Pérez MD, Phone: [phone] Serum Equatorial Guinean thistle specif ic IgE antibody assayOrdered By: John Lobo on 01-11-2025 Saltwort IgE Qn (S) <0.10 kU/L Class 0 [facility] Serum black walnut IgE antib matt assay (units/volume)Ordered By: John Lobo on 01-11-2025 Black Pitcher IgE Qn (S) <0.10 kU/L Class 0 [facility] Serum classic neutrophil cyt oplasmic antibody assay (units/volume)Ordered By: John Lobo on 01-11-2025 Neutrophil cytoplasmic Ab.classic Qn (S) <1:20 titer Neg:<1:20 [facility] Serum cottonwood IgE antibod y assay (units/volume)Ordered By: John Lobo on 01-11-2025 Aguada IgE Qn (S) <0.10 kU/L Class 0 [facility] Serum dog epithelium IgE ant ibody assay (units/volume)Ordered By: John Lobo on 01-11-2025 Dog epithelium IgE Qn (S) <0.10 kU/L Class 0 [facility] Serum mountain cedar specifi c IgE antibody assayOrdered By: John Lobo on 01-11-2025 Mountain Juniper IgE Qn (S) <0.10 kU/L Class 0 [facility] Serum perinuclear neutrophil cytoplasmic antibody titer by immunofluorescenceOrdered By: John Lobo on 01-11-2025 Neutrophil cytoplasmic Ab.perinuclear IF (S) [Titer] <1:20 titer Neg:<1:20 [facility] Comment on above: The presence of posi tive fluorescence exhibiting P-ANCA orC-ANCA patterns alone is not specific for the diagnosis ofWegener's Granulomatosis (WG) or microscopic polyangiitis.Decisions about treatment should not be based solely onANCA IFA results. The International ANCA Group Consensusrecommends follow up testing of positive sera with both KY-3 and MPO-ANCA enzyme immunoassays. As many as 5% serumsamples are positive only by EIA. Ref. AM J Clin [id number];111:507-513. Serum vinh IgE antibody a ssay (units/volume)Ordered By: John Lobo on 01-11-2025 Vinh IgE Qn (S) <0.10 kU/L Class 0 [facility] Serum white elm IgE antibody assay (units/volume)Ordered By: John Lobo on 01-11-2025 White Elm IgE Qn (S) <0.10 kU/L Class [address] [facility] Serum white mulberry IgE ant ibody assay (units/volume)Ordered By: John Lobo on 01-11-2025 White mulberry IgE Qn (S) <0.10 kU/L Class 0 [facility] White blood cell (WBC) count Ordered By: John Lobo on 04-29-2025 WBC (Bld) [#/Vol] 3.6 10*3/uL Low 4.4-11.0 [facility] Pulmonary Visit Reporton Pulmonary Visit Report [facility] [address] [place] [address] OFFICE VISIT Date of Service: 01/05/25 MR#: [id number] Acct: [id number] Name: QUTIA SPENCER Rep #: [id number] : 1975 Provider: Dr. John Lobo DO Age/Sex: 49/F Location: [facility] Status: Signed Assessment and Plan Assessment and Plan (1) Asthma: Status: Suspected Plan: The patient reported today for the evaluation of periodic episodes of dyspnea and cough, which are suspected to be related to upper respiratory infections and/or suspected asthma. The patient was already evaluated by ENT with normal laryngoscopy noted. She has never previously been diagnosed with asthma. She does perceive some symptom relief with the use of bronchodilator therapy. However, her symptoms that include a sensation of throat tightness and/or a feeling as if she is breathing through a straw could certainly suggest underlying vocal cord dysfunction as well. The patient had a normal exhaled nitric oxide level at today's office visit. At this time, given that she is at her baseline, we will plan to obtain baseline pulmonary function studies along with CBC with differential, IgE, and RAST profile. I have advised the patient to only utilize her albuterol rescue inhaler if she becomes symptomatic to better assess if she experiences symptom relief with use of a short acting bronchodilator. If there is continued suspicion for asthma after her workup is completed, given the frequency with which she experiences these episodes, I would recommend that she be placed on a maintenance inhaler regimen. Alternatively, if my suspicion for asthma is low, I would next consider a referral to speech for vocal cord dysfunction evaluation and laryngeal control therapy. Result: Oral exhaled NO (ppb): 5 Normal: 5-20 ppb (Adult) High Normal/Increased: 20-35 ppb (Adult). Moderately raised exhaled nitric oxide may indicate underlying inflammation, but notes that cold and influenza can raise exhaled nitric oxide in some patients have higher baseline levels than others. High: >35 ppb (Adult). Indicative of ongoing eosinophilic inflammation. Symptomatic patient likely to respond to steroids. Possible causes include: Poor compliance, recent allergen exposure, steroid dose inadequate, and steroid resistance. Orders: Orders PFT Complete - DLCO, Spirometry b/a bronchodilators, lung volumes 01/11/25 J45.909 - Unspecified asthma, uncomplicated Aspergillus Antibodies Today J45.909 - Unspecified asthma, uncomplicated CBC W/Diff, Automated Today J45.909 - Unspecified asthma, uncomplicated Immunoglobulin E Today J45.909 - Unspecified asthma, uncomplicated ANCA Today J45.909 - Unspecified asthma, uncomplicated Allergen Resp. Area 5 Today J45.909 - Unspecified asthma, uncomplicated NIOX Today J45.909 - Unspecified asthma, uncomplicated HPI HPI Comments Details: The patient is a 49-year-old female who presents to the clinic today in follow-up from a recent emergency department visit. On December 24, the patient was evaluated in the emergency department due to complaints of dyspnea. Chest imaging demonstrated no acute cardiopulmonary process. The patient was ultimately treated with bronchodilators and discharged home on a prednisone taper. The patient reported that for a number of years each time that she experiences an upper respiratory infection she subsequently develops dyspnea and a significant cough. She was initially referred to ENT and underwent laryngoscopy, which apparently was unremarkable. Her ENT provider subsequently placed her on Advair discus over concerns for suspicion of asthma. In the last year, the patient reported that she has had 3-4 episodes similar to the aforementioned. They normally resolve gradually and are typically treated by various providers with bronchodilators and steroids. Since the patient's last ED visit at the beginning of the month, her dyspnea is improved. She did just complete prednisone 4 days ago. Although she does have access to Advair, her use is inconsistent. When questioned specifically, the patient does believe that she gets some symptom relief with the use of albuterol. What is interesting, however, is that the patient reports that during these episodes she experiences a tightness in her throat and a sensation as if she is breathing through a straw. She denies any history of seasonal allergic rhinitis. She currently denies any sinus drainage or postnasal drip. Again, she has never been formally diagnosed with asthma in the past. She is a lifelong non-smoker. The patient is currently employed working in [employer]. Intake Vital Signs 12/24/24 08:34 01/05/25 08:03 Height 5 ft 1 in 5 ft 1 in Weight: 131 lb BMI 24.7 BP 131/80 H Blood Pressure Location Lt brachial (more content not included)... Normal [facility] Chest PA and Lateralon 12-24 Chest PA and Lateral [facility] Imaging Services [address] [place] [address] Chest PA and Lateral MR#: [id number] Acct: [id number] Name: QUITA SPENCER Rep #: [id number] : 1975 F 49 From: Evangelist Encarnacion MD PCP: Dr. Kaylie Streeter MD Status: PRE ER Study: Chest PA and Lateral Date of Exam: 12/24/24 Exam# [id number] Ordering Dr: Edinson Cruz DO EXAM: XR Chest, 2 Views CLINICAL INDICATION: DYSPNEA TECHNIQUE: Frontal and lateral views of the chest. COMPARISON: No relevant prior studies available. FINDINGS: LUNGS AND PLEURAL SPACES: Unremarkable. No consolidation. No pneumothorax. HEART: Unremarkable. No cardiomegaly. MEDIASTINUM: Unremarkable. Normal mediastinal contour. BONES/JOINTS: Unremarkable. No acute fracture. RAD/Chest PA and Lateral IMPRESSION: No acute cardiopulmonary process. Reading Location: [facility] CC: Dr. Kaylie Streeter MD; Dr. Edinson Cruz DO Immigration Case Worker: Signed Normal [facility] Emergency Department Summary on 12-24-2024 Emergency Department Summary [facility] Medical Records Department [address] [place] [address] Emergency Department Summary 12/24/24 MR#: [id number] Acct: [id number] Name: QUITA SPENCER Rep #: [id number] : 1975 49 From: Edinson Cruz DO PCP: Dr. Kaylie Streeter MD Status:DEP ER Location: ED HPI History of Present Illness Chief Complaint: Asthma Informant: patient Narrative Narrative: 49-year-old female presenting to the emergency room with concerns for asthma. Patient states that through the year she has had episodes similar to today where she feels a heaviness in her chest a weak voice cough. She states that she self diagnosed as viral induced asthma. She states in September she saw ENT and was diagnosed with asthma and was started on Advair 250 as well as albuterol rescue inhaler. She states that she went there had a concern for polyps on her vocal cords but after a scope she was told that the vocal cords appeared normal and that the problem was air movement up from the lungs. She states on Friday she began to have similar symptoms as in the past went to urgent care and was started on a tapering dose of prednisone starting at 40 mg. She states she does not feel any better. Cough is nonproductive. No fevers. No significant nasal congestion. She notes hoarse/weak voice. She notes dyspnea with conversation. She does not feel well enough to climb stairs. She has never saw a powertrain control systems engineer or had a formal PFTs. She denies any skin conditions or allergies. She notes a remote history of gastroparesis and was on antacid medicines that because of long-term effects to went off of it. She does not note any significant indigestion and has not had any symptoms of gastroparesis recently. She has not seen her primary care doctor for this. [facility] Home Medications ???Medication ???Instructions ???Recorded ???Last Taken ???Type cholecalciferol (vitamin D3) 50 50 mcg PO QDAY 11/21/24 Unknown Hi story mcg (2,000 unit) capsule zinc gluconate 50 mg tablet 50 mg PO QDAY 11/21/24 Unknown His tory albuterol sulfate 2.5 mg/3 mL 2.5 mg (3 mL) inhalation Q4H PRN 0 12/24/24 Unknown Rx (0.083 %) solution for nebulization #25 vials albuterol sulfate 90 mcg/actuation 2 puff inhalation Q4H PRN PRN Unknown History aerosol inhaler wheezing fluticasone 250 mcg-salmeterol 50 1 ea inhalation BID 12/24/24 Unkn own History mcg/dose blistr powdr for inhalation prednisone 10 mg tablet mg PO 12/24/24 12/24/24 History prednisone 20 mg tablet See Rx Instructions .Route 5 Unknown Rx .COMPLEX #24 tabs Allergy/AdvReac Type Severity Reaction Status Date / Time doxycycline Allergy Vomiting Verified 12/24/24 08:44 Sulfa (Sulfonamide Allergy Unknown Verified 12/24/24 08:44 Antibiotics) Family History Mother Cancer Diabetes Grandmother Diabetes Cancer Sister Diabetes Father Liver disease Social History Smoking Status: Never smoker alcohol intake: never ROS ROS ED Constitutional Constitutional ED: Denies chills, fever(s) or weight loss Eyes Eyes: Denies change in vision or diplopia ENT ENT ED: Reports other Details: Hoarse voice ; Denies ear pain, rhinorrhea or sore throat Cardiovascular Cardiovascular: Denies chest pain, orthopnea, palpitations or racing heartbeat Respiratory/Chest Respiratory/Chest: Reports cough and dyspnea; Denies orthopnea Gastrointestinal Gastrointestinal: Denies abdominal pain, diarrhea, nausea or vomiting Genitourinary Genitourinary ED: Denies dysuria, hematuria or urinary frequency Musculoskeletal Musculoskeletal: Denies arthralgias or myalgias Integumentary Denies abscess or rash Neurologic Neurologic: Denies headache(s) or weakness Psychiatric Psychiatric: Denies anxiety, depression, suicidal ideation or suicidal thoughts Endocrine Endocrinology: Denies polydipsia, polyphagia or polyuria Allergic/Immunologic Allergic/Immunologic ED: Denies mouth swelling, tongue swelling or urticaria EXAM Physical Exam Const Vital Signs: 12/24/24 08:34 12/24/24 08:45 12/24/24 09:09 Temperature 98.4 F Temperature Source Oral Pulse Rate 78 81 Respiratory Rate 18 16 Respiratory Effort Short of Breath Respiratory Depth Normal Respiratory Pattern Normal Normal Blood Pressure 162/76 H Blood Pressure Mean 104 Pulse Ox 99 Oxygen Delivery Method Room Air Room Air 12/24/24 09:09 Temperature Temperature Source Pulse Rate Respiratory Rate Respiratory Effort Respiratory Depth Respiratory Pattern Blood Pressure Blood Pressure Mean Pulse Ox 100 Oxygen Delivery Method Room Air Positive well nourished and well developed (more content not included)... 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 Patient presents with: Cough: sob dx with asthma Cough Associated symptoms include headaches and shortness of breath. Pertinent negatives include no chest pain, no chills and no sore throat. Quita Spencer is a 49 year old female who presents with slight cough and shortness of breath for the past 4 days. She was diagnosed with asthma as an adult and has been using Advair as prescribed by ENT. She is out of her albuterol inhaler. She denies fever or sick symptoms. Review of Systems Constitutional: Negative for chills and fever. HENT: Negative for sore throat. Respiratory: Positive for cough and shortness of breath. Cardiovascular: Negative for chest pain. Gastrointestinal: Negative. Musculoskeletal: Negative for arthralgias. Neurological: Positive for headaches. Objective BP 122/74 Pulse 80 Temp 36.7 ?C (98 ?F) Resp 16 Wt 60.6 kg (133 lb 9.6 oz) LMP 12/30/2023 (Approximate) SpO2 98% BMI 25.24 kg/m? PAST MEDICAL HISTORY Diagnosis Date - Dysphagia - GERD (gastroesophageal reflux disease) - Post viral RAD (reactive airway disease) cough/wheezing with URIs PAST SURGICAL HISTORY Procedure Laterality Date - CHOLECYSTECTOMY 12/2015 - CORRECT BUNION,SIMPLE 1994 LEFT FOOT - ESOPHAGOGASTRODUODENOSCO PY TRANSORAL DIAGNOSTIC 09/06/2015 EGD - GALLBLADDER/EF 12/2015 ALLERGIES Doxycycline MEDICATIONS - fluticasone (FLONASE) 50 mcg/actuation nasal spray Use 2 Sprays in each nostril once daily. Rinse mouth after use. - Omeprazole 40 mg capsule Take 40 mg by mouth as needed (gerd). as necessary - fluticasone-salmeterol (ADVAIR DISKUS) 250-50 mcg/dose inhaler Inhale 1 puff as instructed two times a day. - Inhalational Spacing Device 1 device one time only for 1 dose. - albuterol HFA (PROVENTIL HFA, VENTOLIN HFA) 90 mcg/actuation inhaler Inhale 2 puffs as instructed every 4 hours as needed for wheezing/shortness of breath. - predniSONE (DELTASONE) 10 mg tablet Take 4 tabs daily for 3 days, then 2 tabs daily for 3 days, then 1 tab daily for 3 days with food. - promethazine (PHENERGAN) 12.5 mg tablet take 1 tablet by mouth every 8 hours if needed for nausea FAMILY HISTORY Problem Relation Age of Onset - Diabetes Mother - Hypertension Mother - Breast Cancer Mother age 61, was tested and neg - Hypertension Father - other (liver disease) Father - Breast Cancer Maternal Grandmother - Diabetes Maternal Grandmother - Hypertension Maternal Grandmother - Breast Cancer Other MATERNAL GREAT AUNTS X2 - Diabetes Sister - Hypertension Sister Social History Tobacco Use - Smoking status: Never - Smokeless tobacco: Never Substance Use Topics - Alcohol use: Yes Comment: occasionally - Drug use: No Physical Exam Vitals and nursing note reviewed. Constitutional: General: She is not in acute distress. Appearance: Normal appearance. She is not ill-appearing. HENT: Nose: Nose normal. Mouth/Throat: Mouth: Mucous membranes are moist. Pharynx: Oropharynx is clear. No oropharyngeal exudate or posterior oropharyngeal erythema. Cardiovascular: Rate and Rhythm: Normal rate and regular rhythm. Heart sounds: Normal heart sounds. Pulmonary: Effort: Pulmonary effort is normal. No respiratory distress. Breath sounds: Wheezing (slight end expiratory wheeze) present. No rales. Lymphadenopathy: Cervical: No cervical adenopathy. Skin: General: Skin is warm and dry. Findings: No erythema or rash. Neurological: Mental Status: She is alert. {ASSESSMENT/PLAN: 1. Exacerbation of intermittent asthma, unspecified asthma severity (HCC) - ICD9: 493.92, ICD10: J45.21 - INHALATIONAL SPACING DEVICE - ALBUTEROL SULFATE HFA 90 MCG/ACTUATION AEROSOL INHALER - PREDNISONE 10 MG TABLET - Follow-up with your PCP in 3-5 days if symptoms have not improved or sooner if symptoms worsen - Discussed red flags and need for immediate medical evaluation if any occur. - Discussed supportive care treatment with fluids, rest and analgesia. - Discussed expected course of illness Iveth Low APRN.YULY Disposition The patient was discharged. Procedures Iveth Low APRN.CNP 12/20/2024 11:16 AM Signed ASSESSMENT/PLAN: 1. Exacerbation of intermittent asthma, unspecified asthma severity (HCC) - ICD9: 493.92, ICD10: J45.21 - INHALATIONAL SPACING DEVICE - ALBUTEROL SULFATE HFA 90 MCG/ACTUATION AEROSOL INHALER - (more content not included)... Normal [facility] Urine Cultureon 11-24-2024 URC Escherichia coli [place] Count 50,000-80,000 Escherichia coli: REACTION Ampicillin Islt SHYANNE 4 Ampicillin+Sulbac Islt SHYANNE <=2 S Cefepime Islt SHYANNE <=0.12 S cefTRIAXone Islt SHYANNE <=0.25 S Ciprofloxacin Islt SHYANNE <=0.06 S B-Lactamase Extended Susc Islt NEG Gentamicin Islt SHYANNE <=1 S levoFLOXacin Islt SHYANNE <=0.12 S Meropenem Islt SHYANNE <=0.25 S Nitrofurantoin Islt SHYANNE <=16 S Pip+Tazo Islt SHYANNE <=4 S TMP SMX Islt SHYANNE <=20 S Normal [facility] Comment on above: Performed By: #### M [id number] #### [facility] [address] [place], [address] Urine cultureOrdered By: Roldan Moon on 11-22-2024 Bacteria identified Cx Nom (U) Escherichia coli Abnormal [facility] - Chemistry and C hemistry - challengeOrdered By: David Moon on 11-21-2024 Glucose Ql (U) Negative [facility] Ketones Ql (U) Trace (5) [facility] pH (U) 6.5 [pH] [facility] Specific gravity (U) [Rel density] 1.015 [facility] Urobilinogen (U) [Mass/Vol] 0.5972555 mg/dL [facility] - Hematology and Cell countsOrdered By: David Moon on 11-21-2024 Hemoglobin Ql (U) Hemolyzed [facility] - Specimen inform ationOrdered By: David Moon on 11-21-2024 Clarity (U) Clear [facility] Color (U) YELLOW [facility] - UrinalysisOrder ed By: David Moon on 11-21-2024 Nitrite Ql (U) Negative [facility] Protein Ql (U) Negative [facility] No Panel InformationOrdered By: Davdi Moon on 11-21-2024 Urine Leukocytes Positive [facility] Comment on above: small Urine Non-Hemolyzed Blood Large [facility] Urgent Care Visit Reporton 0 11-21-2024 Urgent Care Visit Report [facility] [address], [address] [place] [address] OFFICE VISIT Date of Service: 11/21/24 MR#: [id number] Acct: [id number] Name: QUITA SPENCER Rep #: [id number] : 1975 Provider: RUBY jefferson Age/Sex: 49/F Location: [facility] Status: Signed Intake Vital Signs 11/21/24 12:32 Height 5 ft 1.5 in Weight: 135 lb 2 oz BMI 25.1 BP 120/80 Position Sitting Pulse 65 Temp 97.8 F Temp Source Oral Pulse Oximetry (%) 97 Oxygen Delivery Method room air Intake Visit Reasons: CONCERN FOR UTI Accompanied by: Self Allergies doxycycline Allergy (Verified 11/21/24 12:30) Vomiting Sulfa (Sulfonamide Antibiotics) Allergy (Verified 11/21/24 12:30) Unknown Medications ???Medication ???Instructions ???Recorded ???Confirmed ???Type cholecalciferol (vitamin D3) 50 50 mcg PO QDAY 11/21/24 11/21/24 H istory mcg (2,000 unit) capsule nitrofurantoin 100 mg PO Q12H 7 days #14 caps 06/0911/21/24 Rx monohydrate/macrocrystal s 100 mg capsule (Macrobid) zinc gluconate 50 mg tablet 50 mg PO QDAY 11/21/24 11/21/24 Hi story Nurse's Note: Patient has blood in her urine, frequency. Patient noticed a odor in her urine this am. Patient also states she had a weird feeling yesterday and she feels bloated and crappie. PFSH Family History (Updated 11/21/24 @ 12:32 by Shahnaz Dallas MA) Mother Cancer Diabetes Grandmother Diabetes Cancer Sister Diabetes Father Liver disease Social History (Updated 11/21/24 @ 12:32 by Shahnaz Dallas MA) Smoking Status: Never smoker alcohol intake: never HPI HPI Details: QUITA SPENCER, is a 49 F who presents to the office today for concerns regarding urinary tract infection. She states blood in urine, urinary frequency, and foal odor. She states feeling bloated and cramping. ROS Const Constitutional: No body ache, chills, fatigue, fever(s) (no fever greater than 99.9 F), malaise, night sweats or other (rigors) Resp Respiratory: No shortness of breath Cardio Cardiology: No chest pain at rest or chest pain with exertion Gastro GI: No abdominal pain Genitourinary-Female: No burning urination, painful urination, urinary frequency, urinary urgency, blood in urine, suprapubic fullness or side pain Endo Endocrine: No fatigue Exam Const General: cooperative, healthy appearing, comfortable and no acute distress Orientation: alert, awake and oriented x3 Chest Chest palpation inspection: normal inspection of the chest Resp Effort Inspection: normal respiratory effort Auscultation: Bilateral: Clear to Auscultation Cardio Rhythm: other (Normal) Heart Sounds: S1 normal, S2 normal and no murmurs GI Inspection: normal to inspection and non-distended Auscultation: normal bowel sounds Palpation: soft and nontender General: No CVA tenderness Skin General: no rashes or lesions noted Results POC Urinalysis Dip (Clinic) Office Urine Color YELLOW Last Edit by Shahnaz Dallas MA on 11/21/24 12:48 Office Urine Clarity Clear Last Edit by Shahnaz Dallas MA on 11/21/24 12:48 Office Urine Glucose Negative Last Edit by Shahnaz Dallas MA on 11/21/24 12:48 Office Urine Ketones Trace (5) Last Edit by Shahnaz Dallas MA on 11/21/24 12:48 Off Ur Spec [place] 1.015 Last Edit by Shahnaz Dallas MA on 11/21/24 12:48 Office Urine pH 6.5 Last Edit by Shahnaz Dallas MA on 11/21/24 12:48 Office Urine Bilirubin Last Edit by Shahnaz Dallas MA on 11/21/24 12:48 Office Urine Urobilinogen 0.2 mg/dL Last Edit by Shahnaz Dallas MA on 11/21/24 12:48 Office Urine Blood Hemolyzed Last Edit by Shahnaz Dallas MA on 11/21/24 12:48 Office Urine Blood Hemolyzed Large Last Edit by Shahnaz Dallas MA on 11/21/24 12:48 Office Urine Protein Negative Last Edit by Shahnaz Dallas MA on 11/21/24 12:48 Office Urine Nitrate Negative Last Edit by Shahnaz Dallas MA on 11/21/24 12:48 Off Ur Leukocytes Positive Last Edit by Shahnaz Dallas MA on 11/21/24 12:48 small Shahnaz Dallas 11/21/24 12:48 Coding Level of Care Code Off vis,new,level 3 Diagnoses Acute cystitis with hematuria N30.01 Hematuria presence: with hematuria Urinary tract infection type: acute cystitis Assessment and Plan Assessment and Plan (1) UTI (urinary tract infection): Status: Acute Qualifiers: Hematuria presence: with hematuria Urinary tract infection type: acute cystitis Qualified Code(s): N30.01 - Acute cystitis with hematuria Plan: Will treat as prescribed. Will send out for urine culture. If urine culture changes treatment plan, we will contact her with results. Encouraged to get plenty of rest, drink lots of clear liquids, and use Tylenol or Ibuprofen (unless contraindicated) for fever and comfort. Patient also educated on other symptomatic management techniques. To (more content not included)... Normal [facility] CNOVon 09-18-2024 CN Office Visit ([facility]WSTR ) -------- QUITA SPENCER ([id number]) 1975 F Date Time Provider Department 09/18/24 8:15 AM [facility] During your visit today, we recorded the following information about you: Temperature Pulse Respiration Blood pressure 97.4 degrees 74/minute 18/minute 142/86 Weight 60.6 kg Fredo Kwong APRN.STATOR PLATE WASHER 09/18/2024 8:33 AM Signed CC: Patient presents with: Sinus Problem: Sinus pain and pressure x 10 days HPI: Quita Spencer is a 49 year old female who presents to the office with complaint of head congestion, cough, nonproductive, and sinus symptoms for 10 days. Symptoms are worsening Associated symptoms includes nasal congestion and facial pain/pressure. Denies fever, wheezing, dyspnea, nausea, vomiting , and diarrhea. Treatments tried include nothing so far. with no relief of symptoms. Sick contacts: unknown. History of asthma, frequent episodes of bronchitis, chronic bronchitis, bronchiectasis or COPD: No Smoker: No Seasonal/environmental allergies: No The ROS is otherwise negative. The patient's pmh, medications, allergies, and past visits are reviewed. PHYSICAL EXAM: BP 142/86 Pulse 74 Temp 36.3 ?C (97.4 ?F) (Tympanic) Resp 18 Wt 60.6 kg (133 lb 9.6 oz) LMP 12/30/2023 (Approximate) SpO2 97% BMI 25.24 kg/m? General appearance: alert, cooperative, pleasant, in no acute distress Head: Normocephalic, frontal sinus pressure Eyes: EOM's intact, conjunctiva pink and moist, no icterus, sclera white, non-injected Ears: Right ear: External ear/canal- Normal, TM - clear with good landmarks. Left ear: External ear/canal- Normal, TM - clear with good landmarks Nose: clear. Oropharynx:moist without lesions, No erythema, exudates or tonsillar hypertrophy. Heart: Negative. RRR without obvious murmur, gallop, or rubs. No ectopy. Lungs: clear to auscultation, without rales or wheeze, good air exchange PAST MEDICAL HISTORY Diagnosis Date Dysphagia GERD (gastroesophageal reflux disease) Post viral RAD (reactive airway disease) cough/wheezing with URIs PAST SURGICAL HISTORY Procedure Laterality Date CHOLECYSTECTOMY 12/2015 CORRECT BUNION,SIMPLE 1994 LEFT FOOT ESOPHAGOGASTRODUODENOSCO PY TRANSORAL DIAGNOSTIC 09/06/2015 EGD GALLBLADDER/EF 12/2015 ALLERGIES Doxycycline MEDICATIONS benzonatate (TESSALON PERLE) 100 mg capsule Take 1 capsule by mouth three times a day as needed for cough for up to 7 days. fluticasone (FLONASE) 50 mcg/actuation nasal spray Use 2 Sprays in each nostril once daily. Rinse mouth after use. albuterol HFA (PROVENTIL HFA, VENTOLIN HFA) 90 mcg/actuation inhaler Inhale 2 Puffs as instructed every 4 hours as needed for wheezing/shortness of breath. Omeprazole 40 mg capsule Take 40 mg by mouth as needed (gerd). as necessary amoxicillin-clavulanate potassium (AUGMENTIN) 875-125 mg per tablet Take 1 tablet by mouth two times a day for 7 days. promethazine (PHENERGAN) 12.5 mg tablet take 1 tablet by mouth every 8 hours if needed for nausea FAMILY HISTORY Problem Relation Age of Onset Diabetes Mother Hypertension Mother Breast Cancer Mother age 61, was tested and neg Hypertension Father other (liver disease) Father Breast Cancer Maternal Grandmother Diabetes Maternal Grandmother Hypertension Maternal Grandmother Breast Cancer Other MATERNAL GREAT AUNTS X2 Diabetes Sister Hypertension Sister Social History Tobacco Use Smoking status: Never Smokeless tobacco: Never Substance Use Topics Alcohol use: Yes Comment: occasionally Drug use: No ASSESSMENT/PLAN: 1. Rhinosinusitis - ICD9: 473.9, ICD10: J32.9 - AMOXICILLIN 875 MG-POTASSIUM CLAVULANATE 125 MG TABLET Prescription instructions reviewed with patient as applicable. Potential red flag symptoms discussed with the patient. Reviewed appropriate action plan to take if red flag symptoms occur. Patient agreeable to treatment plan. Fredo Kwong APRN.STATOR PLATE WASHER Allergies As of Date: 09/18/2024 Noted Allergy Reaction DOXYCYCLINE 10/30/2005 8 - GI Upset Date Reviewed: 09/18/2024 Reviewed by: Perla Patterson LPN - Fully Assessed Reason for Visit: Sinus Problem [99] Cmt: Sinus pain and pressure x 10 days Primary Visit Diagnosis:Rhinosinusitis [J32.9] Order(s):amoxicillin-cla vulanate potassium (AUGMENTIN) 875-125 mg per tabletTake 1 tablet by mouth two times a day for 7 days.Disp: 14 tabletRfl: 0 Prescriptions as of 09/18/2024 - amoxicillin-clavulanate potassium (AUGMENTIN) 875-125 mg per tablet Take 1 tablet by mouth two times a day for 7 days. - benzonatate (TESSALON PERLE) 100 mg capsule Take 1 capsule by mouth three times a day as needed for cough for up to 7 days. - fluticasone (FLONASE) 50 mcg/actuation nasal spray Use 2 Sprays in each nostril once daily. Rinse mouth after use. - albuterol HFA (PROVENTIL HFA, VENTOLIN HFA) 9 (more content not included)... Normal [facility] CNOVon 09-11-2024 CNOV Office Visit ([facility] ) -------- QUITA SPENCER ([id number]) 1975 F Date Time Provider Department 09/11/24 2:15 PM [facility] During your visit today, we recorded the following information about you: Temperature Pulse Respiration Blood pressure 98.9 degrees 85/minute 16/minute 138/88 Weight 60.3 kg Evangelist Chambers PA-C 09/11/2024 2:48 PM Signed This note was created using [employer]. Subjective Quita Spencer is a 49 year old female. Patient is a 49-year-old female who complains of congestion, sinus pressure and hoarseness to her voice that she has developed over the past 2 days. Patient states that she developed significant voice hoarseness over the past 16 hours and arrives at our facility speaking in whispered tones. Patient describes mild throat irritation but denies specific pain. Patient reports no fever, chills or myalgia. Patient does have a history of both laryngitis as well as eustachian tube dysfunction. URI She complains of cough. Associated symptoms include a sore throat. Review of Systems HENT: Positive for congestion, sinus pressure, sore throat and voice change. Respiratory: Positive for cough. All other systems reviewed and are negative. Objective BP 138/88 Pulse 85 Temp 37.2 ?C (98.9 ?F) (Left Tympanic) Resp 16 Wt 60.3 kg (132 lb 15 oz) LMP 12/30/2023 (Approximate) SpO2 98% BMI 25.12 kg/m? Physical Exam Vitals and nursing note reviewed. Constitutional: Appearance: Normal appearance. She is normal weight. HENT: Head: Normocephalic and atraumatic. Right Ear: Tympanic membrane, ear canal and external ear normal. Left Ear: Tympanic membrane, ear canal and external ear normal. Nose: Nose normal. Mouth/Throat: Mouth: Mucous membranes are moist. Pharynx: Oropharynx is clear. No oropharyngeal exudate or posterior oropharyngeal erythema. Comments: Posterior pharynx is clear without erythema or exudate. Uvula is midline without erythema or edema. No dysphagia is noted and no trismus is present. Patient's voice is significantly hoarse and she is speaking in whispered tones. Exam of the anterior neck, larynx is unremarkable. Trachea is midline and there is no degree of soft tissue edema noted to the anterior neck. Eyes: Extraocular Movements: Extraocular movements intact. Conjunctiva/sclera: Conjunctivae normal. Pupils: Pupils are equal, round, and reactive to light. Cardiovascular: Rate and Rhythm: Normal rate and regular rhythm. Pulses: Normal pulses. Heart sounds: Normal heart sounds. Pulmonary: Effort: Pulmonary effort is normal. Breath sounds: Normal breath sounds. Musculoskeletal: Cervical back: Normal range of motion and neck supple. Skin: General: Skin is warm and dry. Capillary Refill: Capillary refill takes less than 2 seconds. Neurological: General: No focal deficit present. Mental Status: She is alert and oriented to person, place, and time. Psychiatric: Mood and Affect: Mood normal. Behavior: Behavior normal. Thought Content: Thought content normal. Judgment: Judgment normal. Assessment and Plan Physical exam findings as noted above. Rapid strep PCR is negative. Patient was provided with prescriptions for prednisone 20 mg and Tessalon 100 mg. Supportive care instructions were discussed and the patient verbalizes clear understanding of same. CLINICAL IMPRESSION: Acute Laryngitis; Acute URI ASSESSMENT/PLAN: 1. Acute laryngitis - ICD9: 464.00, ICD10: J04.0 (primary diagnosis) - STREP A MOLECULAR (POC) - PREDNISONE 20 MG TABLET 2. Acute URI - ICD9: 465.9, ICD10: J06.9 - BENZONATATE 100 MG CAPSULE Evangelist KARL Chambers Allergies As of Date: 09/11/2024 Noted Allergy Reaction DOXYCYCLINE 10/30/2005 8 - GI Upset Date Reviewed: 09/11/2024 Reviewed by: Sara Willard MA - Fully Assessed Reason for Visit: URI [115] Cmt: With laryngitis x 2 days Primary Visit Diagnosis:Acute laryngitis [J04.0] Other Visit Diagnosis:Acute URI [J06.9] Order(s):STREP A MOLECULAR (POC) [[id number]] Order #: [id number]. #:[id number] predniSONE (DELTASONE) 20 mg tabletTake 1 tablet by mouth two times a day for 5 days.Disp: 10 tabletRfl: 0 benzonatate (TESSALON PERLE) 100 mg capsuleTake 1 capsule by mouth three times a day as needed for cough for up to 7 days.Disp: 21 capsuleRfl: 0 Prescriptions as of 09/12/2024 - predniSONE (DELTASONE) 20 mg tablet Take 1 tablet by mouth two times a day for 5 days. - benzonatate (TESSALON PERLE) 100 mg capsule Take 1 capsule by mouth three times a day as needed for cough for up to 7 days. - fluticasone (FLONASE) 50 mcg/actuation nasal spray Use 2 Sprays in each nostril once daily. Rinse mouth after use. - albuterol HFA (PROVENTIL HFA, VENTOLIN HFA) 90 mcg/actuation inhaler Inhale 2 Puffs as instructed every 4 hours as needed for wheezing/shortness (more content not included)... Normal [facility] STREP A MOLECULAR (POC)on Procedural Control Valid [facility] Strep A (POCT) Negative Negative [facility] CNOVon 01-16-2024 CNOV Office Visit ([facility]WSTR ) -------- QUITA SPENCER ([id number]) 1975 F Date Time Provider Department 5/3/24 11:00 AM NISHANT DONALD [facility] During your visit today, we recorded the following information about you: Temperature Pulse Respiration Blood pressure 97.8 degrees 73/minute 18/minute 162/96 Weight Last Period 57 kg 12/30/23 Nishant Donald APRN.CNP 01/16/2024 12:12 PM Signed Subjective HPI HPI Quita Spencre is a 48 year old female who presents today for CC of left ear pressure since this AM, had been sneezing for few weeks. Has tried nothing for relief. Symptoms are worsened by nothing. Risk factors recent illness in home. nonsmoker. .Patient presents with: Ear Pain: Left ear into frontal sinus under eye x this am PAST MEDICAL HISTORY Diagnosis Date Dysphagia GERD (gastroesophageal reflux disease) Post viral RAD (reactive airway disease) cough/wheezing with URIs PAST SURGICAL HISTORY Procedure Laterality Date CHOLECYSTECTOMY 12/2015 CORRECT BUNION,SIMPLE 1994 LEFT FOOT ESOPHAGOGASTRODUODENOSCO PY TRANSORAL DIAGNOSTIC 09/06/2015 EGD GALLBLADDER/EF 12/2015 ALLERGIES Doxycycline MEDICATIONS albuterol HFA (PROVENTIL HFA, VENTOLIN HFA) 90 mcg/actuation inhaler Inhale 2 Puffs as instructed every 4 hours as needed for wheezing/shortness of breath. Omeprazole 40 mg capsule Take 40 mg by mouth as needed (gerd). as necessary fluticasone (FLONASE) 50 mcg/actuation nasal spray Use 2 Sprays in each nostril once daily. Rinse mouth after use. promethazine (PHENERGAN) 12.5 mg tablet take 1 tablet by mouth every 8 hours if needed for nausea FAMILY HISTORY Problem Relation Age of Onset Diabetes Mother Hypertension Mother Breast Cancer Mother age 61, was tested and neg Hypertension Father other (liver disease) Father Breast Cancer Maternal Grandmother Diabetes Maternal Grandmother Hypertension Maternal Grandmother Breast Cancer Other MATERNAL GREAT AUNTS X2 Diabetes Sister Hypertension Sister Social History Tobacco Use Smoking status: Never Smokeless tobacco: Never Substance Use Topics Alcohol use: Yes Comment: occasionally Drug use: No Review of Systems Constitutional: Negative for fever. HENT: Positive for ear pain. Negative for congestion, ear discharge, hearing loss, nosebleeds and sore throat. Respiratory: Negative for cough, shortness of breath and wheezing. Cardiovascular: Negative for chest pain. Musculoskeletal: Negative for neck pain. Objective Blood pressure 162/96, pulse 73, temperature 36.6 ?C (97.8 ?F), resp. rate 18, weight 57 kg (125 lb 10.6 oz), last menstrual period 12/30/2023, SpO2 99%. Bp rechecked manual by provider 160/88. Physical Exam Constitutional: General: She is not in acute distress. Appearance: She is not toxic-appearing or diaphoretic. HENT: Head: Normocephalic and atraumatic. Right Ear: Hearing, tympanic membrane, ear canal and external ear normal. Left Ear: Hearing, tympanic membrane, ear canal and external ear normal. Nose: Nose normal. Mouth/Throat: Lips: [place]. Mouth: Mucous membranes are moist. Pharynx: Uvula midline. Posterior oropharyngeal erythema present. No pharyngeal swelling, oropharyngeal exudate or uvula swelling. Eyes: General: Lids are normal. No scleral icterus. Right eye: No discharge. Left eye: No discharge. Conjunctiva/sclera: Conjunctivae normal. Pupils: Pupils are equal, round, and reactive to light. Neck: Trachea: Trachea normal. Cardiovascular: Rate and Rhythm: Normal rate and regular rhythm. Heart sounds: Normal heart sounds. Pulmonary: Effort: Pulmonary effort is normal. Breath sounds: Normal breath sounds. Musculoskeletal: Cervical back: Normal range of motion and neck supple. Lymphadenopathy: Cervical: Cervical adenopathy present. Right cervical: Superficial cervical adenopathy present. Left cervical: Superficial cervical adenopathy present. Skin: Findings: No rash. Neurological: Mental Status: She is alert and oriented to person, place, and time. ASSESSMENT/PLAN: 1. ETD (Eustachian tube dysfunction), left - ICD9: 381.81, ICD10: H69.92 (primary diagnosis) -use medication as prescribed -follow up if symptoms persist, worsen, change - FLUTICASONE PROPIONATE 50 MCG/ACTUATION NASAL SPRAY,SUSPENSION 2. Erythema of pharynx - ICD9: 478.20, ICD10: J39.2 Strep negative, likely viral - ALERE STREP A TEST (AG) 3. Elevated blood pressure reading without diagnosis of hypertension - ICD9: 796.2, ICD10: R03.0 Advised to check bp at home Urgent f/u for cp/sob/headache Call pcp on Friday to update. Nishant Donald APRN.STATOR PLATE WASHER Allergies As of Date: 01/16/2024 Noted Allergy Reaction DOXYCYCLINE 10/30/2005 8 - GI Upset Date Reviewed: 01/16/2024 Reviewed by: Martine Julian LPN - Fully Assessed Reason for Visit: Ear Pain [817] Cmt: Left ear into frontal si (more content not included)... Normal [facility] STREP A MOLECULAR (POC)on Procedural Control Valid [facility] Strep A (POCT) Negative Negative [facility] Absolute lymphocyte countOrd ered By: Terry Osorio on 12-25-2023 Lymphocytes Auto (Unsp spec) [#/Vol] 1.30 10*3/uL 0.83-4.51 [facility] Automated lymphocyte count a s percentage of total leukocytesOrdered By: Terry Osorio on 12-25-2023 Lymphocytes/100 WBC Auto (Unsp spec) 30.7 % 19-41 [facility] Basophil percentageOrdered B y: Terry Osorio on 12-25-2023 Basophils/100 WBC (Bld) 1.2 % 0-1 [facility] Chloride [Moles/Vol] 108 mmol/L 98-107 [facility] Cholesterol [Mass/Vol] 208 mg/dL <200 [facility] Comment on above: <200 mg/dL Desirable 200-240 mg/dL Borderline >240 mg/dL High Risk Eosinophils/100 WBC (Bld) 1.9 % 0-5 [facility] Glucose [Mass/Vol] 92 mg/dL 74-106 [facility] Hemoglobin (Bld) [Mass/Vol] 14.0 g/dL 12.0-15.0 [facility] Monocytes/100 WBC (Bld) 6.6 % 0-10 [facility] Neutrophils (Bld) [#/Vol] 2.5 10*3/uL 2.0-7.7 [facility] Neutrophils/100 WBC (Bld) 59.4 % 47-70 [facility] Potassium [Moles/Vol] 3.5 mmol/L 3.5-5.1 [facility] Sodium [Moles/Vol] 141 mmol/L 136-145 [facility] Triglyceride [Mass/Vol] 120 mg/dL <199 [facility] Comment on above: The drugs N-Acetylcy steine and Metamizole may falsely depress this assay.Serum Triglycerides Reference Interval Normal <150 mg/dL Borderline high 150 - 199 mg/dL High 200 - 499 mg/dL Very High > or = 500 mg/dL WBC (Bld) [#/Vol] 4.2 10*3/uL 4.4-11.0 [facility] Determination of erythrocyte mean corpuscular volume (MCV)Ordered By: Terry Osorio on 12-25-2023 MCV (RBC) [Entitic vol] 91.3 fL 81-99 [facility] Erythrocyte distribution wid th ratioOrdered By: Terry Osorio on 12-25-2023 Erythrocyte distribution width (RBC) [Ratio] 12.3 % 11.6-14.6 [facility] Erythrocyte distribution wid th standard deviationOrdered By: Terry Osorio on 12-25-2023 Erythrocyte distribution width (RBC) [Entitic vol] 40.7 fL 35.1-43.9 [facility] Hematocrit Auto (Bld) [Volum e fraction]Ordered By: Terry Osorio on 12-25-2023 Hematocrit (Bld) [Volume fraction] 42.2 % 37-47 [facility] Immature granulocytes/100 WB C Auto (Bld)Ordered By: Terry Osorio on 12-25-2023 Immature granulocytes/100 WBC (Bld) 0.200 % 0.0-0.9 [facility] Comment on above: IG% - Immature Granu locytes (promyelocytes, myelocytes and metamyelocytes) > 1% indicates that a LEFT SHIFT is Present. Laboratory - Chemistry and C hemistry - challengeOrdered By: Terry Osorio on 12-25-2023 Cholesterol in HDL [Mass/Vol] 60 mg/dL >40 [facility] Comment on above: The drugs N-Acetylcy steine and Metamizole may falsely depress this assay. Reference Range HDL <40 mg/dL Low HDL Cholesterol HDL >or= 60 mg/dL High HDL Cholesterol Cholesterol in LDL [Mass/Vol] 124 mg/dL 0-130 [facility] CO2 [Moles/Vol] 28.0 mmol/L 21.0-32.0 [facility] Urea nitrogen/Creatinine [Mass ratio] 14.7 mg/mg 10-20 [facility] Laboratory - Hematology and Cell countsOrdered By: Terry Osorio on 12-25-2023 MCH (RBC) [Entitic mass] 30.3 pg 27.0-32.0 [facility] MCHC (RBC) [Mass/Vol] 33.2 g/dL 32-36 [facility] Nucleated RBC/100 WBC (Bld) [Ratio] 0 % 0-5 [facility] Platelet mean volume (Bld) [Entitic vol] 9.8 fL 6.2-12.0 [facility] Platelets (Bld) [#/Vol] 236 10*3/uL 150-450 [facility] No Panel InformationOrdered By: Terry Osorio on 12-25-2023 Estimated GFR (MDRD) Amer 96 mL/min >60 [facility] Comment on above: GFR Calc Estimated GFR (MDRD) Non-Af Amer 80 mL/min >60 [facility] Comment on above: Non- GFR Calc VLDL Cholesterol 24 mg/dL 5-40 [facility] RBC Auto (Bld) [#/Vol]Ordere d By: Terry Osorio on 12-25-2023 RBC (Bld) [#/Vol] 4.62 10*6/uL 4.2-5.4 [facility] Serum or plasma calcium mary urement (mass/volume)Ordered By: Terry Osorio on 12-25-2023 Calcium [Mass/Vol] 9.2 mg/dL 8.5-10.1 [facility] Serum or plasma creatinine m easurement (mass/volume)Ordered By: Terry Osorio on 12-25-2023 Creatinine [Mass/Vol] 0.82 mg/dL 0.55-1.02 [facility] Comment on above: The validity of the calculated GFR & GFRAA in patients over 70 years has not been determined. Clinical correlation is essential. Serum or plasma thyroid stim ulating hormone (TSH) measurement (units/volume)Ordered By: Terry Osorio on 12-25-2023 TSH Qn 2.00 uIU/mL 0.358-3.74 [facility] Serum or plasma urea nitroge n measurement (mass/volume)Ordered By: Terry Osorio on 12-25-2023 Urea nitrogen [Mass/Vol] 12 mg/dL 7-18 [facility] Thin prep Papanicolaou smear with manual screeningOrdered By: Terry Osorio on 12-25-2023 Thin prep Papanicolaou smear with manual screening 5 5-15 [facility] SOCO SCREENINGon 06-18-2022 [facility] NM GASTRIC EMPTYING SOLIDon 12-09-2018 NM GASTRIC EMPTYING SOLID * * *Final Report* * * DATE OF EXAM: Dec 09 2018 1:08PM N 0017 - NM GASTRIC EMPTYING SOLID / PROCEDURE REASON: Nausea * * * * Physician Interpretation * * * * RESULT: SOLID MEAL GASTRIC EMPTYING STUDY: CLINICAL HISTORY: To assess for abnormal gastric emptying of a solid meal. TECHNIQUE: 1 mCi Tc-99m sulfur colloid was given orally in a meal consisting of 4 oz Egg Beaters, 1 pieces toast, 30g strawberry jam, and 6 oz water, consumed over 5 to 10 minutes. FINDINGS: Solid study demonstrates 72% retention at 1hr, 35% retention at 2hr, and 2% retention at 4hr (normal emptying is 37-90% retention at 1hr, 30-60% retention at 2hr, and 0-10% retention at 4hr). There is no accelerated emptying of gastric contents, with 72% retention at 1hr (rapid emptying is <30% retention at 1hr). IMPRESSION: NORMAL RATE OF GASTRIC EMPTYING OF SOLID MEAL. Transcribed Using Voice Recognition Transcribe Date/Time: Dec 09 2018 1:33P Dictated by: MARYLIN LLANES MD This examination was interpreted and the report reviewed and electronically signed by: MARYLIN LLANES MD on Dec 09 2018 1:34PM EST [id number] Normal [facility] Vital Signs Date Time Vital Sign Value Performing Clinician Facility 02-16-2025 07:35-0400 Body mass index (BMI) [Ratio] 24.7 kg/m2 Dr. Kaylie Streeter MD Work Phone: [facility] 02-16-2025 07:35-0400 Body temperature 97.8 [degF] Dr. Kaylie Streeter MD Work Phone: [facility] 02-16-2025 07:35-0400 Body weight 59.[address] Kaylie Streeter MD Work Phone: [facility] 02-16-2025 07:35-0400 Diastolic blood pressure 84 mm[Hg] Dr. Kaylie Streeter MD Work Phone: [facility] 02-16-2025 07:35-0400 Heart rate 64 /min Dr. Kaylie Streeter MD Work Phone: [facility] 02-16-2025 07:35-0400 Respiratory rate 16 /min Dr. Kaylie Streeter MD Work Phone: [facility] 02-16-2025 07:35-0400 Systolic blood pressure 121 mm[Hg] Dr. Kaylie Streeter MD Work Phone: 5(415)[phone] [address] 01-05-2025 08:03-0400 Body height 154.[address] Kaylie Streeter MD Work Phone: 9(161)[phone] [place] [address] 01-05-2025 08:03-0400 Body mass index (BMI) [Ratio] 24.7 kg/m2 Dr. Kaylie Streeter MD Work Phone: [facility] 01-05-2025 08:03-0400 Body temperature 97.3 [degF] Dr. Kaylie Streeter MD Work Phone: [facility] 01-05-2025 08:03-0400 Body weight 59.[address] Kaylie Streeter MD Work Phone: 6(126)[phone] [place] [address] 01-05-2025 08:03-0400 Diastolic blood pressure 80 mm[Hg] Dr. Kaylie Streeter MD Work Phone: [facility] 01-05-2025 08:03-0400 Heart rate 58 /min Dr. Kaylie Streeter MD Work Phone: [facility] 01-05-2025 08:03-0400 Respiratory rate 18 /min Dr. Kaylie Streeter MD Work Phone: [facility] 01-05-2025 08:03-0400 SaO2% (BldA) [Mass fraction] 99 % Dr. Kaylie Streeter MD Work Phone: [facility] 01-05-2025 08:03-0400 Systolic blood pressure 131 mm[Hg] Dr. Kaylie Streeter MD Work Phone: [facility] 12-24-2024 09:32-0400 Body temperature 97.4 [degF] Dr. Kaylie Streeter MD Work Phone: [facility] 12-24-2024 09:32-0400 Diastolic blood pressure 78 mm[Hg] Dr. Kaylie Streeter MD Work Phone: [facility] 12-24-2024 09:32-0400 Heart rate 70 /min Dr. Kaylie Streeter MD Work Phone: [facility] 12-24-2024 09:32-0400 Respiratory rate 16 /min Dr. Kaylie Streeter MD Work Phone: [facility] 12-24-2024 09:32-0400 SaO2% (BldA) [Mass fraction] 99 % Dr. Kaylie Streeter MD Work Phone: [facility] 12-24-2024 09:32-0400 Systolic blood pressure 150 mm[Hg] Dr. Kaylie Streeter MD Work Phone: [facility] 12-24-2024 08:34-0400 Body height 154.[address] Kaylie Streeter MD Work Phone: [facility] 12-24-2024 08:34-0400 Body mass index (BMI) [Ratio] 25.6 kg/m2 Dr. Kaylie Streeter MD Work Phone: [facility] 12-24-2024 08:34-0400 Body weight 61.[address] Kaylie Streeter MD Work Phone: [facility] 12-20-2024 11:00-0400 Body mass index (BMI) [Ratio] 25.24 kg/m2 Iveth Low APRN.CNP Work Phone: [facility] 12-20-2024 11:00-0400 Body temperature 98.01 [degF] Iveth Praisler-Wood ELECTRONICS TECH.STATOR PLATE WASHER Work Phone: [facility] 12-20-2024 11:00-0400 Body weight 60.6 kg Iveth Praisler-Wood ELECTRONICS TECH.STATOR PLATE WASHER Work Phone: [facility] 12-20-2024 11:00-0400 Diastolic blood pressure 74 mm[Hg] Iveth Praisler-Wood ELECTRONICS TECH.STATOR PLATE WASHER Work Phone: [facility] 12-20-2024 11:00-0400 Heart rate 80 /min Iveth Praisler-Wood ELECTRONICS TECH.STATOR PLATE WASHER Work Phone: [facility] 12-20-2024 11:00-0400 Respiratory rate 16 /min Iveth Praisler-Wood ELECTRONICS TECH.STATOR PLATE WASHER Work Phone: [facility] 12-20-2024 11:00-0400 SaO2% (BldA) [Mass fraction] 98 % Iveth Praisler-Wood ELECTRONICS TECH.STATOR PLATE WASHER Work Phone: [facility] 12-20-2024 11:00-0400 Systolic blood pressure 122 mm[Hg] Iveth Praisler-Wood ELECTRONICS TECH.STATOR PLATE WASHER Work Phone: [facility] 11-21-2024 12:32-0400 Body height 156.[address] Kaylie Streeter MD Work Phone: [facility] 11-21-2024 12:32-0400 Body mass index (BMI) [Ratio] 25.1 kg/m2 Dr. Kaylie Streeter MD Work Phone: [facility] 11-21-2024 12:32-0400 Body temperature 97.8 [degF] Dr. Kaylie Streeter MD Work Phone: [facility] 11-21-2024 12:32-0400 Body weight 61.[address] Kaylie Streeter MD Work Phone: [facility] 11-21-2024 12:32-0400 Diastolic blood pressure 80 mm[Hg] Dr. Kaylie Streeter MD Work Phone: [facility] 11-21-2024 12:32-0400 Heart rate 65 /min Dr. Kaylie Streeter MD Work Phone: [facility] 11-21-2024 12:32-0400 SaO2% (BldA) [Mass fraction] 97 % Dr. Kaylie Streeter MD Work Phone: [facility] 11-21-2024 12:32-0400 Systolic blood pressure 120 mm[Hg] Dr. Kaylie Streeter MD Work Phone: [facility] 09-18-2024 08:14-0500 Body mass index (BMI) [Ratio] 25.24 kg/m2 Fredo Kwong APRN.STATOR PLATE WASHER Work Phone: [facility] 09-18-2024 08:14-0500 Body temperature 97.39 [degF] Fredo Kwong APRN.STATOR PLATE WASHER Work Phone: [facility] 09-18-2024 08:14-0500 Body weight 60.6 kg Fredo Kwong APRN.STATOR PLATE WASHER Work Phone: [facility] 09-18-2024 08:14-0500 Diastolic blood pressure 86 mm[Hg] Fredo Kwong APRN.STATOR PLATE WASHER Work Phone: [facility] 09-18-2024 08:14-0500 Heart rate 74 /min Fredo Kwong APRN.STATOR PLATE WASHER Work Phone: [facility] 09-18-2024 08:14-0500 Respiratory rate 18 /min Fredo Kwong APRN.STATOR PLATE WASHER Work Phone: [facility] 09-18-2024 08:14-0500 SaO2% (BldA) [Mass fraction] 97 % Fredo Kwong APRN.STATOR PLATE WASHER Work Phone: [facility] 09-18-2024 08:14-0500 Systolic blood pressure 142 mm[Hg] Fredo Kwong APRN.STATOR PLATE WASHER Work Phone: [facility] 09-11-2024 14:11-0500 Body mass index (BMI) [Ratio] 25.12 kg/m2 Evangelist Clutter PA-C Work Phone: [facility] 09-11-2024 14:11-0500 Body temperature 98.91 [degF] Evangelist Clutter PA-C Work Phone: [facility] 09-11-2024 14:11-0500 Body weight 60.3 kg Evangelist Clutter PA-C Work Phone: [facility] 09-11-2024 14:11-0500 Diastolic blood pressure 88 mm[Hg] Evangelist Clutter PA-C Work Phone: [facility] 09-11-2024 14:11-0500 Heart rate 85 /min Evangelist Clutter PA-C Work Phone: [facility] 09-11-2024 14:11-0500 Respiratory rate 16 /min Evangelist Clutter PA-C Work Phone: [facility] 09-11-2024 14:11-0500 SaO2% (BldA) [Mass fraction] 98 % Evangelist Clutter PA-C Work Phone: [facility] 09-11-2024 14:11-0500 Systolic blood pressure 138 mm[Hg] Evangelist Clutter PA-C Work Phone: [facility] 01-16-2024 11:05-0400 Body mass index (BMI) [Ratio] 23.74 kg/m2 Nishant Donald APRN.STATOR PLATE WASHER Work Phone: [facility] 01-16-2024 11:05-0400 Body temperature 97.81 [degF] Nishant Donald ELECTRONICS TECH.STATOR PLATE WASHER Work Phone: [facility] 01-16-2024 11:05-0400 Body weight 57 kg Nishant Donald ELECTRONICS TECH.STATOR PLATE WASHER Work Phone: [facility] 01-16-2024 11:05-0400 Diastolic blood pressure 96 mm[Hg] Nishant Donald ELECTRONICS TECH.STATOR PLATE WASHER Work Phone: [facility] Comment on above: checked x 2 01-16-2024 11:05-0400 Heart rate 73 /min Nishant Odilon ELECTRONICS TECH.STATOR PLATE WASHER Work Phone: [facility] 01-16-2024 11:05-0400 Respiratory rate 18 /min Nishant Donald ELECTRONICS TECH.STATOR PLATE WASHER Work Phone: [facility] 01-16-2024 11:05-0400 SaO2% (BldA) [Mass fraction] 99 % Nishant Donald ELECTRONICS TECH.STATOR PLATE WASHER Work Phone: [facility] 01-16-2024 11:05-0400 Systolic blood pressure 162 mm[Hg] Nishant Donald ELECTRONICS TECH.STATOR PLATE WASHER Work Phone: [facility] Comment on above: checked x 2 12-29-2022 12:31-0400 Body temperature 98.49 [degF] Iveth Praisler-Kevin ELECTRONICS TECH.STATOR PLATE WASHER Work Phone: [facility] 12-29-2022 12:31-0400 Body weight 57.61 kg Iveth Praisler-Wood ELECTRONICS TECH.STATOR PLATE WASHER Work Phone: [facility] 12-29-2022 12:31-0400 Diastolic blood pressure 66 mm[Hg] Iveth Praisler-Wood ELECTRONICS TECH.STATOR PLATE WASHER Work Phone: [facility] 12-29-2022 12:31-0400 Heart rate 104 /min Iveth Praisler-Wood ELECTRONICS TECH.STATOR PLATE WASHER Work Phone: [facility] 12-29-2022 12:31-0400 Respiratory rate 18 /min Iveth Praisler-Wood ELECTRONICS TECH.STATOR PLATE WASHER Work Phone: [facility] 12-29-2022 12:31-0400 SaO2% (BldA) [Mass fraction] 100 % Iveth Praisler-Wood ELECTRONICS TECH.STATOR PLATE WASHER Work Phone: [facility] 12-29-2022 12:31-0400 Systolic blood pressure 102 mm[Hg] Iveth Praisler-Wood ELECTRONICS TECH.STATOR PLATE WASHER Work Phone: [facility] Encounters Encounter Date Encounter Type Care Provider Facility Start: 03-01-2025 [facility] Facility: [facility] Start: 02-16-2025 End: 02-16-2025 Patient encounter procedure Emily BELTRAN -[facility] Work Phone: Start: 02-16-2025 End: 02-16-2025 ambulatory Kaylie Streeter Facility:[facility] Start: 01-11-2025 End: 01-11-[address] Kaylie Streeter MD Work Phone: [facility] Work Phone: Start: 01-11-2025 End: 01-11-[address] John Lobo DO -Pulmonary Services/Neurology Work Phone: Start: 01-11-2025 End: 01-11-2025 ambulatory Kaylie Streeter Facility:[facility] Start: 01-05-2025 End: 01-05-[address] John Lobo DO -[facility] Work Phone: Start: 01-05-2025 End: 01-05-2025 ambulatory Kaylie Streeter Facility:[facility] Start: 12-24-2024 End: 12-24-2024 Emergency department patient visit Dr. Kaylie Streeter MD Work Phone: -Emergency Department Work Phone: Start: 12-20-2024 End: 12-20-[address] Facility:[facility] Start: 12-20-2024 End: 12-20-2024 Patient encounter procedure Iveth Low APRN.CNP Work Phone: [facility] Comment on above: Exacerbation of inte rmittent asthma, unspecified asthma severity (HCC) Start: 11-22-2024 End: 11-22-[address] Kaylie Streeter MD Work Phone: [facility] Work Phone: Start: 11-22-2024 End: 11-22-[address] Kaylie Streeter MD -Laboratory, Specimen Work Phone: Start: 11-21-2024 End: 11-21-2024 Patient encounter procedure David Issa Sarai TIRE SPOTTER-C -[facility] Work Phone: Start: 11-21-2024 End: 11-22-2024 ambulatory [facility] Facility:[facility] Start: 09-18-2024 End: 09-18-2024 ambulatory [facility] Facility:[facility] Start: 09-18-2024 End: 09-18-2024 Patient encounter procedure Fredo Kwong APRN.STATOR PLATE WASHER Work Phone: [facility] Comment on above: Rhinosinusitis (Prim jovi Dx) Start: 09-11-2024 End: 09-11-2024 ambulatory [facility] Facility:[facility] Start: 09-11-2024 End: 09-11-2024 Office outpatient visit 25 minutes Evangelist Chambers PA-C Work Phone: [facility] Comment on above: Acute laryngitis (Pr imary Dx); Acute URI Start: 01-16-2024 End: 01-16-2024 ambulatory [facility] Facility:[facility] Start: 01-16-2024 End: 01-16-2024 Patient encounter procedure Nishant Donald APRN.STATOR PLATE WASHER Work Phone: [facility] Comment on above: ETD (Eustachian tube dysfunction), left (Primary Dx); Erythema of pharynx; Elevated blood pressure reading without diagnosis of hypertension Start: 12-25-2023 End: 12-25-2023 ambulatory [facility] Work Phone: Start: 12-25-2023 End: 12-25-2023 Patient encounter procedure [facility] Work Phone: Start: 10-21-2023 Documentation procedure Mammog lizzette Coordinator [facility] Start: 10-21-2023 Letter encounter Mammography Coordinator [facility] Department Start: 10-16-2023 Telephone encounter Isabella Wallace MD Work Phone: [facility] Comment on above: Orders Start: 12-30-2022 Telephone encounter Fredo Taye ELECTRONICS TECH.STATOR PLATE WASHER Work Phone: [facility] Comment on above: Results Start: 12-29-2022 End: 12-29-2022 Patient encounter procedure Iveth Low APRN.STATOR PLATE WASHER Work Phone: [facility] Comment on above: Exacerbation of inte rmittent asthma, unspecified asthma severity (Primary Dx); Viral URI with cough Start: 06-18-2022 End: 06-18-2022 Subsequent hospital visit by physician Screen Mammo [facility] Comment on above: Encounter for screen ing mammogram for malignant neoplasm of breast [Z12.31] Start: 06-01-2022 Telephone encounter Isabella Wallace MD Work Phone: OB/Gynecology Comment on above: Orders Start: 01-02-2022 End: 01-02-2022 Patient encounter procedure [facility], [facility] Start: 12-09-2018 Patient encounter procedure [facility] Procedures Date Procedure Procedure Detail Performing Clinician Start: 01-11-[address] Kaylie Streeter MD Work Phone: Start: 01-11-[address] Kaylie Streeter MD Work Phone: Start: 01-11-[address] Loraine Streeter MD Work Phone: Comment on above: The atypical pANCA p attern has been observed in asignificant percentage of patients with ulcerative colitis,primary sclerosing cholangitis and autoimmune hepatitis. Start: 01-11-[address] Kaylie Streeter MD Work Phone: Start: 01-11-[address] Kaylie Streeter MD Work Phone: Start: 01-11-[address] Kaylie Streeter MD Work Phone: Start: 01-11-2025 Common silver birch RAST Dr. Kaylie Streeter MD Work Phone: Start: 01-11-2025 House dust mite (Df) RAST Dr. Kaylie Streeter MD Work Phone: Start: 01-11-2025 Mouse urine proteins RAST Dr. Kaylie Streeter MD Work Phone: Start: 01-11-[address] Kaylie Streeter MD Work Phone: Start: 01-11-[address] Kaylie Streeter MD Work Phone: Start: 01-11-[address] Fanta Streeter MD Work Phone: Start: 01-11-[address] [place] [address] Fanta Streeter MD Work Phone: Start: 12-24-2024 X-ray of chest, PA a nd lateral views Dr. Kaylie Streeter MD Work Phone: Start: 11-22-[address] Kaylie bernard MD Work Phone: Start: 09-11-2024 STREP A MOLECULAR (POC) Evangelist Chambers PA-C Work Phone: Start: 01-16-2024 STREP A MOLECULAR (POC) [facility] Provider Start: 06-18-2022 End: 06-18-2022 Screening mammography bi 2-view breast inc cad Isabella Wallace MD Work Phone: Start: 01-02-2022 CT of abdomen Start: 10-17-2020 Mammography Isabella carr MD Work Phone: Plan of Treatment Date Care Activity Detail Author Start: 10-02-2025 HPV TESTING HPV TESTING [facility] Start: 10-02-2025 PAP TESTING PAP TESTING [facility] Start: 10-02-2025 Screening for malign ant neoplasm of cervix [facility] Start: 12-24-2024 [facility] Start: 10-21-2024 Screening for malign ant neoplasm of breast Mammogram Screening [facility] Start: 05-16-2024 Covid-19 Vaccine () Covid-19 Vaccine () [facility] Start: 05-16-2024 Influenza vaccination C [facility] Start: 09-15-2023 Behavioral Health Screening Behavioral Health Screening [facility] Start: 09-15-2023 Depression Assessment Depression Ass essment [facility] Start: 06-18-2023 Mammography MAMMOGRAM [facility] Start: 06-18-2023 Screening for malign ant neoplasm of breast Mammogram Screening [facility] Start: 05-16-2023 Covid-19 Vaccine () Covid-19 Vaccine () [facility] Start: 05-16-2023 Influenza vaccination Influenza Vacc ine (#1) [facility] Start: 09-15-2022 DEPRESSION ASSESSMENT DEPRESSION ASS ESSMENT [facility] Start: 05-16-2022 Influenza vaccination INFLUENZA (#1) [facility] Start: 12-09-2021 DIABETES SCREEN DIABETES SCREEN [facility] Start: 12-09-2021 Diabetes Screening Diabetes Screenin g [facility] Start: 10-17-2021 Mammography MAMMOGRAM [facility] Start: 09-15-2021 [facility] Start: 01-25-2021 COVID-19 VACCINE (3 - Booster for Pfizer series) COVID-19 VACCINE (3 - Booster for Pfizer series) [facility] Start: 2020 COLOGUARD (FIT-DNA) COLOGUARD (FIT-D NA) [facility] Start: 2020 Colonoscopy COLONOSCOPY [facility] Start: 2020 COLORECTAL CANCER SCREENING COLORECTAL CANCER SCREENING [facility] Start: [address] COLONOGRAPHY [facility] Start: 2020 FECAL OCCULT BLOOD FECAL OCCULT BLOO D [facility] Start: 2020 Lipid panel Lipid Screening [facility] Start: 2020 LIPID SCREEN LIPID SCREEN [facility] Start: 2020 Screening for malign ant neoplasm of colon [facility] Start: 2020 SIGMOIDOSCOPY SIGMOIDOSCOPY [facility] Start: 1994 Hepatitis B Vaccine (1 of 3 - 19+ 3-dose series) Hepatitis B Vaccine (1 of 3 - 19+ 3-dose series) [facility] Start: 1994 Urine microalbumin profile [facility] Start: 1993 Annual PCP Team Tile Sprayer derik Disease Visit Annual PCP Team Chronic Disease Visit [facility] Start: 1993 Anxiety Screening Anxiety Screening [facility] Start: 1993 Depression Screening Depression Scre ening [facility] Start: 1993 HEPATITIS C SCREENING HEPATITIS C [facility] Start: 1993 Hepatitis C screening Hepatitis C [facility] Start: 1993 HIV SCREENING HIV SCREENING [facility] Start: 1993 HIV screening HIV Screening [facility] Start: 1993 Spirometry Spirometry [facility] Start: 1987 Adult depression screening assessment DEPRESSION SCREENING [facility] Start: 1975 COVID-19 VACCINE (#1) COVID-19 VACCI NE (#1) [facility] Start: 1975 HEPATITIS B (1 of 3 - 3-dose series) HEPATITIS B (1 of 3 - 3-dose series) [facility] Start: 1975 Hepatitis B Vaccine (1 of 3 - 3-dose series) Hepatitis B Vaccine (1 of 3 - 3-dose series) [facility] ALERE STREP A TEST (AG) ALERE ST REP A TEST (AG) Lab Routine Erythema of pharynx Ordered: 01/16/2024 [facility] Work Phone: Comment on above: Ordered: 01/16/2024 Influenza virus A an d B RNA and SARS-CoV-2 (COVID-19) N gene panel - Respiratory specimen by ELICIA with probe detection COVID WITH FLUA+B, ROUTINE Microbiology Routine Viral URI with cough Ordered: 12/29/2022 [facility] Work Phone: Comment on above: Ordered: 12/29/2022 Inhalation challenge test report Document --W methacholine inhaled [facility] End: 11-14-2024 SOCO SCREENING SOC[facility] SCREENING Radiology Routine Encounter for other screening for malignant neoplasm of breast 1 Occurrences starting 10/16/2023 until 11/14/2024 [facility] Work Phone: Comment on above: 1 Occurrences starti ng 10/16/2023 until 11/14/2024 Patient referral [facility] Work Phone: End: 10-19-2023 Screening mammography bi 2-view breast inc cad SOCO SCREENING Radiology Routine Encounter for screening mammogram for malignant neoplasm of breast 1 Occurrences starting 06/03/2022 until 07/03/2023 [facility] Work Phone: Comment on above: 1 Occurrences starti ng 06/03/2022 until 07/03/2023 [facility] Immunizations Immunization Date Immunization Notes Care Provider Fa cility 08-26-2022 influenza virus vacc ine, unspecified formulation Isabella Wallace MD Work Phone: [facility] Payers Date Payer Category Payer Self-pay [id number] 2014 Private Health Insurance MMO SU[employer] PPO [id number] 2014 Unknown [id number] 2014 Unknown [id number] Unknown [id number] Unknown [id number] Unknown [id number] Unknown [id number] Unknown [id number] Unknown [id number] Unknown [id number] Unknown [id number] Social History Date Type Detail Facility Tobacco smoking stat us RIIS Unknown if ever smoked [facility] Work Phone: Start: 1975 Sex Assigned At Female C [facility] Start: 11-21-2024 End: 01-05-2025 Tobacco smoking status RIIS Never smoked tobacco [facility] Start: 10-02-2020 End: 09-18-2024 Alcohol intake Current drinker of alcohol (finding) [facility] Start: 05-24-2022 End: 06-03-2022 Exposure to SARS-CoV-2 (event) Not sure [facility] Work Phone: Start: 08-23-2020 End: 12-29-2022 History of Social function [facility] Start: 08-23-2020 End: 12-29-2022 Tobacco use panel [facility] National Score (1-100), lower number is lower risk Not on file [facility] Start: 09-30-2020 Gender identity Identifies as female gender (finding) [facility] Start: 12-02-2024 End: 12-24-2024 Sex Female (finding) [facility] Clinical Notes 10-31-2005 to 12-24-2024 Patient InstructionsPralizbet-Iveth Brown APRN.[employer] - 12/20/2024 11:13 AM EDT Note Date & Type Note Facility 12-24-2024 Radiology Diagnostic study note [facility] Imaging Services [address] [place], [place] [address] Chest PA and Lateral MR#: [id number] Acct: [id number] Name: QUITA SPENCER Rep #: [id number] : 1975 F 49 From: Delmi Encarnacion MD PCP: Dr. Kaylie Streeter MD Status: PRE ER Study:Chest PA and Lateral Date of Exam: 12/24/24 Exam# [id number] Ordering Dr: Mikael Cruz DO EXAM: XR Chest, 2 Views CLINICAL INDICATION: DYSPNEA TECHNIQUE: Frontal and lateral views of the chest. COMPARISON: No relevant prior studies available. FINDINGS: LUNGS AND PLEURAL SPACES: Unremarkable. No consolidation. No pneumothorax. HEART: Unremarkable. No cardiomegaly. MEDIASTINUM: Unremarkable. Normal mediastinal contour. BONES/JOINTS: Unremarkable. No acute fracture. RAD/Chest PA and Lateral IMPRESSION: No acute cardiopulmonary process. Reading Location: [facility] CC: Dr. Kaylie Streeter MD; Dr. Edinson Cruz DO ~ Immigration Case Worker: Signed [facility] 12-20-2024 Instructions Iveth Low APRN.CNP - 12/20/2024 11:16 AM EDT ASSESSMENT/PLAN: 1. Exacerbation of intermittent asthma, unspecified asthma severity (HCC) - ICD9: 493.92, ICD10: J45.21 - INHALATIONAL SPACING DEVICE - ALBUTEROL SULFATE HFA 90 MCG/ACTUATION AEROSOL INHALER - PREDNISONE 10 MG TABLET - Follow-up with your PCP in 3-5 days if symptoms have not improved or sooner if symptoms worsen - Discussed red flags and need for immediate medical evaluation if any occur. - Discussed supportive care treatment with fluids, rest and analgesia. - Discussed expected course of illness Iveth Low APRN.YULY documented in this encounter [facility] 12-20-2024 Note HNO ID: [id number] Author: IVETH LOW APRN.CNP Service: ? Author Type: Nurse Practitioner Type: Progress Notes Filed: 12/20/2024 11:16 Note Text: [facility] Quita Spencer is a 49 year old female. Patient presents with: Cough: sob dx with asthma Cough Associated symptoms include headaches and shortness of breath. Pertinent negatives include no chest pain, no chills and no sore throat. Quita Spencer is a 49 year old female who presents with slight cough and shortness of breath for the past 4 days. She was diagnosed with asthma as an adult and has been using Advair as prescribed by ENT. She is out of her albuterol inhaler. She denies fever or sick symptoms. Review of Systems Constitutional: Negative for chills and fever. HENT: Negative for sore throat. Respiratory: Positive for cough and shortness of breath. Cardiovascular: Negative for chest pain. Gastrointestinal: Negative. Musculoskeletal: Negative for arthralgias. Neurological: Positive for headaches. Objective BP 122/74 Pulse 80 Temp 36.7 ?C (98 ?F) Resp 16 Wt 60.6 kg (133 lb 9.6 oz) LMP 12/30/2023 (Approximate) SpO2 98% BMI 25.24 kg/m? PAST MEDICAL HISTORY Diagnosis Date - Dysphagia - GERD (gastroesophageal reflux disease) - Post viral RAD (reactive airway disease) cough/wheezing with URIs PAST SURGICAL HISTORY Procedure Laterality Date - CHOLECYSTECTOMY 12/2015 - CORRECT BUNION,SIMPLE 1994 LEFT FOOT - ESOPHAGOGASTRODUODENOSCOPY TRANSORAL DIAGNOSTIC 09/06/2015 EGD - GALLBLADDER/EF 12/2015 ALLERGIES Doxycycline MEDICATIONS - fluticasone (FLONASE) 50 mcg/actuation nasal spray Use 2 Sprays in each nostril once daily. Rinse mouth after use. - Omeprazole 40 mg capsule Take 40 mg by mouth as needed (gerd). as necessary - fluticasone-salmeterol (ADVAIR DISKUS) 250-50 mcg/dose inhaler Inhale 1 puff as instructed two times a day. - Inhalational Spacing Device 1 device one time only for 1 dose. - albuterol HFA (PROVENTIL HFA, VENTOLIN HFA) 90 mcg/actuation inhaler Inhale 2 puffs as instructed every 4 hours as needed for wheezing/shortness of breath. - predniSONE (DELTASONE) 10 mg tablet Take 4 tabs daily for 3 days, then 2 tabs daily for 3 days, then 1 tab daily for 3 days with food. - promethazine (PHENERGAN) 12.5 mg tablet take 1 tablet by mouth every 8 hours if needed for nausea FAMILY HISTORY Problem Relation Age of Onset - Diabetes Mother - Hypertension Mother - Breast Cancer Mother age 61, was tested and neg - Hypertension Father - other (liver disease) Father - Breast Cancer Maternal Grandmother - Diabetes Maternal Grandmother - Hypertension Maternal Grandmother - Breast Cancer Other MATERNAL GREAT AUNTS X2 - Diabetes Sister - Hypertension Sister Social History Tobacco Use - Smoking status: Never - Smokeless tobacco: Never Substance Use Topics - Alcohol use: Yes Comment: occasionally - Drug use: No Physical Exam Vitals and nursing note reviewed. Constitutional: General: She is not in acute distress. Appearance: Normal appearance. She is not ill-appearing. HENT: Nose: Nose normal. Mouth/Throat: Mouth: Mucous membranes are moist. Pharynx: Oropharynx is clear. No oropharyngeal exudate or posterior oropharyngeal erythema. Cardiovascular: Rate and Rhythm: Normal rate and regular rhythm. Heart sounds: Normal heart sounds. Pulmonary: Effort: Pulmonary effort is normal. No respiratory distress. Breath sounds: Wheezing (slight end expiratory wheeze) present. No rales. Lymphadenopathy: Cervical: No cervical adenopathy. Skin: General: Skin is warm and dry. Findings: No erythema or rash. Neurological: Mental Status: She is alert. {ASSESSMENT/PLAN: 1. Exacerbation of intermittent asthma, unspecified asthma severity (HCC) - ICD9: 493.92, ICD10: J45.21 - INHALATIONAL SPACING DEVICE - ALBUTEROL SULFATE HFA 90 MCG/ACTUATION AEROSOL INHALER - PREDNISONE 10 MG TABLET - Follow-up with your PCP in 3-5 days if symptoms have not improved or sooner if symptoms worsen - Discussed red flags and need for immediate medical evaluation if any occur. - Discussed supportive care treatment with fluids, rest and analgesia. - Discussed expected course of illness Iveth Low APRN.[employer] Disposition The patient was discharged. Procedures [facility] 12-20-2024 History of Present illness Narrative [facility] Subjective Qutia Spencer is a 49 year old female. Patient presents with: Cough: sob dx with asthma Cough Associated symptoms include headaches and shortness of breath. Pertinent negatives include no chest pain, no chills and no sore throat. Quita Spencer is a 49 year old female who presents with slight cough and shortness of breath for the past 4 days. She was diagnosed with asthma as an adult and has been using Advair as prescribed by ENT. She is out of her albuterol inhaler. She denies fever or sick symptoms. Review of Systems Constitutional: Negative for chills and fever. HENT: Negative for sore throat. Respiratory: Positive for cough and shortness of breath. Cardiovascular: Negative for chest pain. Gastrointestinal: Negative. Musculoskeletal: Negative for arthralgias. Neurological: Positive for headaches. Objective BP 122/74 Pulse 80 Temp 36.7 C (98 F) Resp 16 Wt 60.6 kg (133 lb 9.6 oz) LMP 12/30/2023 (Approximate) SpO2 98% BMI 25.24 kg/m PAST MEDICAL HISTORY Diagnosis Date Dysphagia GERD (gastroesophageal reflux disease) Post viral RAD (reactive airway disease) cough/wheezing with URIs PAST SURGICAL HISTORY Procedure Laterality Date CHOLECYSTECTOMY 12/2015 CORRECT BUNION,SIMPLE 1994 LEFT FOOT ESOPHAGOGASTRODUODENOSCOPY TRANSORAL DIAGNOSTIC 09/06/2015 EGD GALLBLADDER/EF 12/2015 ALLERGIES Doxycycline MEDICATIONS fluticasone (FLONASE) 50 mcg/actuation nasal spray Use 2 Sprays in each nostril once daily. Rinse mouth after use. Omeprazole 40 mg capsule Take 40 mg by mouth as needed (gerd). as necessary fluticasone-salmeterol (ADVAIR DISKUS) 250-50 mcg/dose inhaler Inhale 1 puff as instructed two times a day. Inhalational Spacing Device 1 device one time only for 1 dose. albuterol HFA (PROVENTIL HFA, VENTOLIN HFA) 90 mcg/actuation inhaler Inhale 2 puffs as instructed every 4 hours as needed for wheezing/shortness of breath. predniSONE (DELTASONE) 10 mg tablet Take 4 tabs daily for 3 days, then 2 tabs daily for 3 days, then 1 tab daily for 3 days with food. promethazine (PHENERGAN) 12.5 mg tablet take 1 tablet by mouth every 8 hours if needed for nausea FAMILY HISTORY Problem Relation Age of Onset Diabetes Mother Hypertension Mother Breast Cancer Mother age 61, was tested and neg Hypertension Father other (liver disease) Father Breast Cancer Maternal Grandmother Diabetes Maternal Grandmother Hypertension Maternal Grandmother Breast Cancer Other MATERNAL GREAT AUNTS X2 Diabetes Sister Hypertension Sister Social History Tobacco Use Smoking status: Never Smokeless tobacco: Never Substance Use Topics Alcohol use: Yes Comment: occasionally Drug use: No Physical Exam Vitals and nursing note reviewed. Constitutional: General: She is not in acute distress. Appearance: Normal appearance. She is not ill-appearing. HENT: Nose: Nose normal. Mouth/Throat: Mouth: Mucous membranes are moist. Pharynx: Oropharynx is clear. No oropharyngeal exudate or posterior oropharyngeal erythema. Cardiovascular: Rate and Rhythm: Normal rate and regular rhythm. Heart sounds: Normal heart sounds. Pulmonary: Effort: Pulmonary effort is normal. No respiratory distress. Breath sounds: Wheezing (slight end expiratory wheeze) present. No rales. Lymphadenopathy: Cervical: No cervical adenopathy. Skin: General: Skin is warm and dry. Findings: No erythema or rash. Neurological: Mental Status: She is alert. {ASSESSMENT/PLAN: 1. Exacerbation of intermittent asthma, unspecified asthma severity (HCC) - ICD9: 493.92, ICD10: J45.21 - INHALATIONAL SPACING DEVICE - ALBUTEROL SULFATE HFA 90 MCG/ACTUATION AEROSOL INHALER - PREDNISONE 10 MG TABLET - Follow-up with your PCP in 3-5 days if symptoms have not improved or sooner if symptoms worsen - Discussed red flags and need for immediate medical evaluation if any occur. - Discussed supportive care treatment with fluids, rest and analgesia. - Discussed expected course of illness Iveth Low APRN.[employer] Disposition The patient was discharged. Procedures documented in this encounter [facility] 11-21-2024 Evaluation note Diagnosis Onset Date Resolution UTI (urinary tract infection) acute November 21, 2024 12:27pm [facility] Work Phone: 1(639) 100-747403-09-2025 Evaluation note* Diagnosis Onset Date Resolution Status Admit Date UTI (urinary tract infection) acute November 21, 2024 12:27pm Asthma suspected January 05 10:09am [facility] Work Phone: 1(442) 586-979801-04-2025 NoteHNO ID: [id number] Author: FREDO KWONG APRN.YULY Service: ? Author Type: Nurse Practitioner Type: Progress Notes Filed: 09/18/2024 08:33 Note Text: CC: Patient presents with: Sinus Problem: Sinus pain and pressure x 10 days HPI: Quita Spencer is a 49 year old female who presents to the office with complaint of head congestion, cough, nonproductive, and sinus symptoms for 10 days. Symptoms are worsening Associated symptoms includes nasal congestion and facial pain/pressure. Denies fever, wheezing, dyspnea, nausea, vomiting , and diarrhea. Treatments tried include nothing so far. with no relief of symptoms. Sick contacts: unknown. History of asthma, frequent episodes of bronchitis, chronic bronchitis, bronchiectasis or COPD: No Smoker: No Seasonal/environmental allergies: No The ROS is otherwise negative. The patient's pmh, medications, allergies, and past visits are reviewed. PHYSICAL EXAM: BP 142/86 Pulse 74 Temp 36.3 ?C (97.4 ?F) (Tympanic) Resp 18 Wt 60.6 kg (133 lb 9.6 oz) LMP 12/30/2023 (Approximate) SpO2 97% BMI 25.24 kg/m? General appearance: alert, cooperative, pleasant, in no acute distress Head: Normocephalic, frontal sinus pressure Eyes: EOM's intact, conjunctiva pink and moist, no icterus, sclera white, non-injected Ears: Right ear: External ear/canal- Normal, TM - clear with good landmarks. Left ear: External ear/canal- Normal, TM - clear with good landmarks Nose: clear. Oropharynx:moist without lesions, No erythema, exudates or tonsillar hypertrophy. Heart: Negative. RRR without obvious murmur, gallop, or rubs. No ectopy. Lungs: clear to auscultation, without rales or wheeze, good air exchange PAST MEDICAL HISTORY Diagnosis Date Dysphagia GERD (gastroesophageal reflux disease) Post viral RAD (reactive airway disease) cough/wheezing with URIs PAST SURGICAL HISTORY Procedure Laterality Date CHOLECYSTECTOMY 12/2015 CORRECT BUNION,SIMPLE 1994 LEFT FOOT ESOPHAGOGASTRODUODENOSCOPY TRANSORAL DIAGNOSTIC 09/06/2015 EGD GALLBLADDER/EF 12/2015 ALLERGIES Doxycycline MEDICATIONS benzonatate (TESSALON PERLE) 100 mg capsule Take 1 capsule by mouth three times a day as needed for cough for up to 7 days. fluticasone (FLONASE) 50 mcg/actuation nasal spray Use 2 Sprays in each nostril once daily. Rinse mouth after use. albuterol HFA (PROVENTIL HFA, VENTOLIN HFA) 90 mcg/actuation inhaler Inhale 2 Puffs as instructed every 4 hours as needed for wheezing/shortness of breath. Omeprazole 40 mg capsule Take 40 mg by mouth as needed (gerd). as necessary amoxicillin-clavulanate potassium (AUGMENTIN) 875-125 mg per tablet Take 1 tablet by mouth two times a day for 7 days. promethazine (PHENERGAN) 12.5 mg tablet take 1 tablet by mouth every 8 hours if needed for nausea FAMILY HISTORY Problem Relation Age of Onset Diabetes Mother Hypertension Mother Breast Cancer Mother age 61, was tested and neg Hypertension Father other (liver disease) Father Breast Cancer Maternal Grandmother Diabetes Maternal Grandmother Hypertension Maternal Grandmother Breast Cancer Other MATERNAL GREAT AUNTS X2 Diabetes Sister Hypertension Sister Social History Tobacco Use Smoking status: Never Smokeless tobacco: Never Substance Use Topics Alcohol use: Yes Comment: occasionally Drug use: No ASSESSMENT/PLAN: 1. Rhinosinusitis - ICD9: 473.9, ICD10: J32.9 - AMOXICILLIN 875 MG-POTASSIUM CLAVULANATE 125 MG TABLET Prescription instructions reviewed with patient as applicable. Potential red flag symptoms discussed with the patient. Reviewed appropriate action plan to take if red flag symptoms occur. Patient agreeable to treatment plan. Fredo Kwong APRN.[facility]01-04-2025 History of Present illness Narrative* Fredo Kwong APRN.[facility] - 09/18/2024 8:25 AM EST CC: Patient presents with: Sinus Problem: Sinus pain and pressure x 10 days HPI: Quita Spencer is a 49 year old female who presents to the office with complaint of head congestion, cough, nonproductive, and sinus symptoms for 10 days. Symptoms are worsening Associated symptoms includes nasal congestion and facial pain/pressure. Denies fever, wheezing, dyspnea, nausea, vomiting , and diarrhea. Treatments tried include nothing so far. with no relief of symptoms. Sick contacts: unknown. History of asthma, frequent episodes of bronchitis, chronic bronchitis, bronchiectasis or COPD: No Smoker: No Seasonal/environmental allergies: No The ROS is otherwise negative. The patient's pmh, medications, allergies, and past visits are reviewed. PHYSICAL EXAM: BP 142/86 Pulse 74 Temp 36.3 C (97.4 F) (Tympanic) Resp 18 Wt 60.6 kg (133 lb 9.6 oz) LMP/ (Approximate) SpO2 97% BMI 25.24 kg/m General appearance: alert, cooperative, pleasant, in no acute distress Head: Normocephalic, frontal sinus pressure Eyes: EOM's intact, conjunctiva pink and moist, no icterus, sclera white, non-injected Ears: Right ear: External ear/canal- Normal, TM - clear with good landmarks. Left ear: External ear/canal- Normal, TM - clear with good landmarks Nose: clear. Oropharynx:moist without lesions, No erythema, exudates or tonsillar hypertrophy. Heart: Negative. RRR without obvious murmur, gallop, or rubs. No ectopy. Lungs: clear to auscultation, without rales or wheeze, good air exchange PAST MEDICAL HISTORY Diagnosis Date Dysphagia GERD (gastroesophageal reflux disease) Post viral RAD (reactive airway disease) cough/wheezing with URIs PAST SURGICAL HISTORY Procedure Laterality Date CHOLECYSTECTOMY 12/2015 CORRECT BUNION,SIMPLE 1994 LEFT FOOT ESOPHAGOGASTRODUODENOSCOPY TRANSORAL DIAGNOSTIC 09/06/2015 EGD GALLBLADDER/EF 12/2015 ALLERGIES Doxycycline MEDICATIONS benzonatate (TESSALON PERLE) 100 mg capsule Take 1 capsule by mouth three times a day as needed forcough for up to 7 days. fluticasone (FLONASE) 50 mcg/actuation nasal spray Use 2 Sprays in each nostril once daily. Rinse mouth after use. albuterol HFA (PROVENTIL HFA, VENTOLIN HFA) 90 mcg/actuation inhaler Inhale 2 Puffs as instructed every 4 hours as needed for wheezing/shortness of breath. Omeprazole 40 mg capsule Take 40 mg by mouth as needed (gerd). as necessary amoxicillin-clavulanate potassium (AUGMENTIN) 875-125 mg per tablet Take 1 tablet by mouth two times a day for 7 days. promethazine (PHENERGAN) 12.5 mg tablet take 1 tablet by mouth every 8 hours if needed for nausea FAMILY HISTORY Problem Relation Age of Onset Diabetes Mother Hypertension Mother Breast Cancer Mother age 61, was tested and neg Hypertension Father other (liver disease) Father Breast Cancer Maternal Grandmother Diabetes Maternal Grandmother Hypertension Maternal Grandmother Breast Cancer Other MATERNAL GREAT AUNTS X2 Diabetes Sister Hypertension Sister Social History Tobacco Use Smoking status: Never Smokeless tobacco: Never Substance Use Topics Alcohol use: Yes Comment: occasionally Drug use: No ASSESSMENT/PLAN: 1. Rhinosinusitis - ICD9: 473.9, ICD10: J32.9 - AMOXICILLIN 875 MG-POTASSIUM CLAVULANATE 125 MG TABLET Prescription instructions reviewed with patient as applicable. Potential red flag symptoms discussed with the patient. Reviewed appropriate action plan to take if red flag symptoms occur. Patient agreeable to treatment plan. Fredo Kwong APRN.[employer] W[employer] [facility] NoteHNO ID: [id number] Author: EVANGELIST CHAMBERS PA-C Service: ? Author Type: Physician Pre School Manager Type: Progress Notes Filed: 09/11/2024 14:48 Note Text: This note was created using [employer]. Subjective Quita Spencer is a 49 year old female. Patient is a 49-year-old female who complains of congestion, sinus pressure and hoarseness to her voice that she has developed over the past 2 days. Patient states that she developed significant voice hoarseness over the past 16 hours and arrives at our facility speaking in whispered tones. Patient describes mild throat irritation but denies specific pain. Patient reports no fever, chills or myalgia. Patient does have a history of both laryngitis as well as eustachian tube dysfunction. URI She complains of cough. Associated symptoms include a sore throat. Review of Systems HENT: Positive for congestion, sinus pressure, sore throat and voice change. Respiratory: Positive for cough. All other systems reviewed and are negative. Objective BP 138/88 Pulse 85 Temp 37.2 ?C (98.9 ?F) (Left Tympanic) Resp 16 Wt 60.3 kg (132 lb 15 oz) LMP 12/30/2023 (Approximate) SpO2 98% BMI 25.12 kg/m? Physical Exam Vitals and nursing note reviewed. Constitutional: Appearance: Normal appearance. She is normal weight. HENT: Head: Normocephalic and atraumatic. Right Ear: Tympanic membrane, ear canal and external ear normal. Left Ear: Tympanic membrane, ear canal and external ear normal. Nose: Nose normal. Mouth/Throat: Mouth: Mucous membranes are moist. Pharynx: Oropharynx is clear. No oropharyngeal exudate or posterior oropharyngeal erythema. Comments: Posterior pharynx is clear without erythema or exudate. Uvula is midline without erythema or edema. No dysphagia is noted and no trismus is present. Patient's voice is significantly hoarse and she is speaking in whispered tones. Exam of the anterior neck, larynx is unremarkable. Trachea is midline and there is no degree of soft tissue edema noted to the anterior neck. Eyes: Extraocular Movements: Extraocular movements intact. Conjunctiva/sclera: Conjunctivae normal. Pupils: Pupils are equal, round, and reactive to light. Cardiovascular: Rate and Rhythm: Normal rate and regular rhythm. Pulses: Normal pulses. Heart sounds: Normal heart sounds. Pulmonary: Effort: Pulmonary effort is normal. Breath sounds: Normal breath sounds. Musculoskeletal: Cervical back: Normal range of motion and neck supple. Skin: General: Skin is warm and dry. Capillary Refill: Capillary refill takes less than 2 seconds. Neurological: General: No focal deficit present. Mental Status: She is alert and oriented to person, place, and time. Psychiatric: Mood and Affect: Mood normal. Behavior: Behavior normal. Thought Content: Thought content normal. Judgment: Judgment normal. Assessment and Plan Physical exam findings as noted above. Rapid strep PCR is negative. Patient was provided with prescriptions for prednisone 20 mg and Tessalon 100 mg. Supportive care instructions were discussed and the patient verbalizes clear understanding of same. CLINICAL IMPRESSION: Acute Laryngitis; Acute URI ASSESSMENT/PLAN: 1. Acute laryngitis - ICD9: 464.00, ICD10: J04.0 (primary diagnosis) - STREP A MOLECULAR (POC) - PREDNISONE 20 MG TABLET 2. Acute URI - ICD9: 465.9, ICD10: J06.9 - BENZONATATE 100 MG CAPSULE J[facility]12-28-2024 History of Present illness Narrative* Evangelist Chambers PA-C - 09/11/2024 2:28 PM EST This note was created using NoteWriter. Subjective Quita Spencer is a 49 year old female. Patient is a 49-year-old female who complains of congestion, sinus pressure and hoarseness to her voice that she has developed over the past 2 days. Patient states that she developed significant voice hoarseness over the past 16 hours and arrives at our facility speaking in whispered tones. Patientdescribes mild throat irritation but denies specific pain. Patient reports no fever, chills or myalgia. Patient does have a history of both laryngitis as well as eustachian tube dysfunction. URI She complains of cough. Associated symptoms include a sore throat. Review of Systems HENT: Positive for congestion, sinus pressure, sore throat and voice change. Respiratory: Positive for cough. All other systems reviewed and are negative. Objective BP 138/88 Pulse 85 Temp 37.2 C (98.9 F) (Left Tympanic) Resp 16 Wt 60.3 kg (132 lb 15 oz) LMP 12/30/2023 (Approximate) SpO2 98% BMI 25.12 kg/m Physical Exam Vitals and nursing note reviewed. Constitutional: Appearance: Normal appearance. She is normal weight. HENT: Head: Normocephalic and atraumatic. Right Ear: Tympanic membrane, ear canal and external ear normal. Left Ear: Tympanic membrane, ear canal and external ear normal. Nose: Nose normal. Mouth/Throat: Mouth: Mucous membranes are moist. Pharynx: Oropharynx is clear. No oropharyngeal exudate or posterior oropharyngeal erythema. Comments: Posterior pharynx is clear without erythema or exudate. Uvula is midline without erythemaor edema. No dysphagia is noted and no trismus is present. Patient's voice is significantly hoarse and she is speaking in whispered tones. Exam of the anterior neck, larynx is unremarkable. Trachea is midline and there is no degree of soft tissue edema noted to the anterior neck. Eyes: Extraocular Movements: Extraocular movements intact. Conjunctiva/sclera: Conjunctivae normal. Pupils: Pupils are equal, round, and reactive to light. Cardiovascular: Rate and Rhythm: Normal rate and regular rhythm. Pulses: Normal pulses. Heart sounds: Normal heart sounds. Pulmonary: Effort: Pulmonary effort is normal. Breath sounds: Normal breath sounds. Musculoskeletal: Cervical back: Normal range of motion and neck supple. Skin: General: Skin is warm and dry. Capillary Refill: Capillary refill takes less than 2 seconds. Neurological: General: No focal deficit present. Mental Status: She is alert and oriented to person, place, and time. Psychiatric: Mood and Affect: Mood normal. Behavior: Behavior normal. Thought Content: Thought content normal. Judgment: Judgment normal. Assessment and Plan Physical exam findings as noted above. Rapid strep PCR is negative. Patient was provided with prescriptions for prednisone 20 mg and Tessalon 100 mg. Supportive care instructions were discussed and the patient verbalizes clear understanding of same. CLINICAL IMPRESSION: Acute Laryngitis; Acute URI ASSESSMENT/PLAN: 1. Acute laryngitis - ICD9: 464.00, ICD10: J04.0 (primary diagnosis) - STREP A MOLECULAR (POC) - PREDNISONE 20 MG TABLET 2. Acute URI - ICD9: 465.9, ICD10: J06.9 - BENZONATATE 100 MG CAPSULE Evangelist Chambers PA-C documented in this encounterE[facility]24 NoteHNO ID: [id number] Author: NISHANT DONALD APRN.STATOR PLATE WASHER Service: ? Author Type: Nurse Practitioner Type: Progress Notes Filed: 01/16/2024 12:12 Note Text: Subjective HPI HPI Quita Spencer is a 48 year old female who presents today for CC of left ear pressure since this AM, had been sneezing for few weeks. Has tried nothing for relief. Symptoms are worsened by nothing. Risk factors recent illness in home. nonsmoker. .Patient presents with: Ear Pain: Left ear into frontal sinus under eye x this am PAST MEDICAL HISTORY Diagnosis Date Dysphagia GERD (gastroesophageal reflux disease) Post viral RAD (reactive airway disease) cough/wheezing with URIs PAST SURGICAL HISTORY Procedure Laterality Date CHOLECYSTECTOMY 12/2015 CORRECT BUNION,SIMPLE 1994 LEFT FOOT ESOPHAGOGASTRODUODENOSCOPY TRANSORAL DIAGNOSTIC 09/06/2015 EGD GALLBLADDER/EF 12/2015 ALLERGIES Doxycycline MEDICATIONS albuterol HFA (PROVENTIL HFA, VENTOLIN HFA) 90 mcg/actuation inhaler Inhale 2 Puffs as instructed every 4 hours as needed for wheezing/shortness of breath. Omeprazole 40 mg capsule Take 40 mg by mouth as needed (gerd). as necessary fluticasone (FLONASE) 50 mcg/actuation nasal spray Use 2 Sprays in each nostril once daily. Rinse mouth after use. promethazine (PHENERGAN) 12.5 mg tablet take 1 tablet by mouth every 8 hours if needed for nausea FAMILY HISTORY Problem Relation Age of Onset Diabetes Mother Hypertension Mother Breast Cancer Mother age 61, was tested and neg Hypertension Father other (liver disease) Father Breast Cancer Maternal Grandmother Diabetes Maternal Grandmother Hypertension Maternal Grandmother Breast Cancer Other MATERNAL GREAT AUNTS X2 Diabetes Sister Hypertension Sister Social History Tobacco Use Smoking status: Never Smokeless tobacco: Never Substance Use Topics Alcohol use: Yes Comment: occasionally Drug use: No Review of Systems Constitutional: Negative for fever. HENT: Positive for ear pain. Negative for congestion, ear discharge, hearing loss, nosebleeds and sore throat. Respiratory: Negative for cough, shortness of breath and wheezing. Cardiovascular: Negative for chest pain. Musculoskeletal: Negative for neck pain. Objective Blood pressure 162/96, pulse 73, temperature 36.6 ?C (97.8 ?F), resp. rate 18, weight 57 kg (125 lb 10.6 oz), last menstrual period 12/30/2023, SpO2 99%. Bp rechecked manual by provider 160/88. Physical Exam Constitutional: General: She is not in acute distress. Appearance: She is not toxic-appearing or diaphoretic. HENT: Head: Normocephalic and atraumatic. Right Ear: Hearing, tympanic membrane, ear canal and external ear normal. Left Ear: Hearing, tympanic membrane, ear canal and external ear normal. Nose: Nose normal. Mouth/Throat: Lips: [place]. Mouth: Mucous membranes are moist. Pharynx: Uvula midline. Posterior oropharyngeal erythema present. No pharyngeal swelling, oropharyngeal exudate or uvula swelling. Eyes: General: Lids are normal. No scleral icterus. Right eye: No discharge. Left eye: No discharge. Conjunctiva/sclera: Conjunctivae normal. Pupils: Pupils are equal, round, and reactive to light. Neck: Trachea: Trachea normal. Cardiovascular: Rate and Rhythm: Normal rate and regular rhythm. Heart sounds: Normal heart sounds. Pulmonary: Effort: Pulmonary effort is normal. Breath sounds: Normal breath sounds. Musculoskeletal: Cervical back: Normal range of motion and neck supple. Lymphadenopathy: Cervical: Cervical adenopathy present. Right cervical: Superficial cervical adenopathy present. Left cervical: Superficial cervical adenopathy present. Skin: Findings: No rash. Neurological: Mental Status: She is alert and oriented to person, place, and time. ASSESSMENT/PLAN: 1. ETD (Eustachian tube dysfunction), left - ICD9: 381.81, ICD10: H69.92 (primary diagnosis) -use medication as prescribed -follow up if symptoms persist, worsen, change - FLUTICASONE PROPIONATE 50 MCG/ACTUATION NASAL SPRAY,SUSPENSION 2. Erythema of pharynx - ICD9: 478.20, ICD10: J39.2 Strep negative, likely viral - ALERE STREP A TEST (AG) 3. Elevated blood pressure reading without diagnosis of hypertension - ICD9: 796.2, ICD10: R03.0 Advised to check bp at home Urgent f/u for cp/sob/headache Call pcp on Friday to update. Nishant Donald APRN.[facility]05-03-2024 History of Present illness Narrative* Nishant Donald APRN.YULY - 01/16/2024 11:58 AM EDT Subjective HPI HPI Quita Spencer is a 48 year old female who presents today for CC of left ear pressure since this AM, had been sneezing for few weeks. Has tried nothing for relief. Symptoms are worsened by nothing. Risk factors recent illness in home. nonsmoker. .Patient presents with: Ear Pain: Left ear into frontal sinus under eye x this am PAST MEDICAL HISTORY Diagnosis Date Dysphagia GERD (gastroesophageal reflux disease) Post viral RAD (reactive airway disease) cough/wheezing with URIs PAST SURGICAL HISTORY Procedure Laterality Date CHOLECYSTECTOMY 12/2015 CORRECT BUNION,SIMPLE 1994 LEFT FOOT ESOPHAGOGASTRODUODENOSCOPY TRANSORAL DIAGNOSTIC 09/06/2015 EGD GALLBLADDER/EF 12/2015 ALLERGIES Doxycycline MEDICATIONS albuterol HFA (PROVENTIL HFA, VENTOLIN HFA) 90 mcg/actuation inhaler Inhale 2 Puffs as instructed every 4 hours as needed for wheezing/shortness of breath. Omeprazole 40 mg capsule Take 40 mg by mouth as needed (gerd). as necessary fluticasone (FLONASE) 50 mcg/actuation nasal spray Use 2 Sprays in each nostril once daily. Rinse mouth after use. promethazine (PHENERGAN) 12.5 mg tablet take 1 tablet by mouth every 8 hours if needed for nausea FAMILY HISTORY Problem Relation Age of Onset Diabetes Mother Hypertension Mother Breast Cancer Mother age 61, was tested and neg Hypertension Father other (liver disease) Father Breast Cancer Maternal Grandmother Diabetes Maternal Grandmother Hypertension Maternal Grandmother Breast Cancer Other MATERNAL GREAT AUNTS X2 Diabetes Sister Hypertension Sister Social History Tobacco Use Smoking status: Never Smokeless tobacco: Never Substance Use Topics Alcohol use: Yes Comment: occasionally Drug use: No Review of Systems Constitutional: Negative for fever. HENT: Positive for ear pain. Negative for congestion, ear discharge, hearing loss, nosebleeds and sore throat. Respiratory: Negative for cough, shortness of breath and wheezing. Cardiovascular: Negative for chest pain. Musculoskeletal: Negative for neck pain. Objective Blood pressure 162/96, pulse 73, temperature 36.6 C (97.8 F), resp. rate 18, weight 57 kg (125 lb 10.6 oz), last menstrual period 12/30/2023, SpO2 99%. Bp rechecked manual by provider 160/88. Physical Exam Constitutional: General: She is not in acute distress. Appearance: She is not toxic-appearing or diaphoretic. HENT: Head: Normocephalic and atraumatic. Right Ear: Hearing, tympanic membrane, ear canal and external ear normal. Left Ear: Hearing, tympanic membrane, ear canal and external ear normal. Nose: Nose normal. Mouth/Throat: Lips: [place]. Mouth: Mucous membranes are moist. Pharynx: Uvula midline. Posterior oropharyngeal erythema present. No pharyngeal swelling, oropharyngeal exudate or uvula swelling. Eyes: General: Lids are normal. No scleral icterus. Right eye: No discharge. Left eye: No discharge. Conjunctiva/sclera: Conjunctivae normal. Pupils: Pupils are equal, round, and reactive to light. Neck: Trachea: Trachea normal. Cardiovascular: Rate and Rhythm: Normal rate and regular rhythm. Heart sounds: Normal heart sounds. Pulmonary: Effort: Pulmonary effort is normal. Breath sounds: Normal breath sounds. Musculoskeletal: Cervical back: Normal range of motion and neck supple. Lymphadenopathy: Cervical: Cervical adenopathy present. Right cervical: Superficial cervical adenopathy present. Left cervical: Superficial cervical adenopathy present. Skin: Findings: No rash. Neurological: Mental Status: She is alert and oriented to person, place, and time. ASSESSMENT/PLAN: 1. ETD (Eustachian tube dysfunction), left - ICD9: 381.81, ICD10: H69.92 (primary diagnosis) -use medication as prescribed -follow up if symptoms persist, worsen, change - FLUTICASONE PROPIONATE 50 MCG/ACTUATION NASAL SPRAY,SUSPENSION 2. Erythema of pharynx - ICD9: 478.20, ICD10: J39.2 Strep negative, likely viral - ALERE STREP A TEST (AG) 3. Elevated blood pressure reading without diagnosis of hypertension - ICD9: 796.2, ICD10: R03.0 Advised to check bp at home Urgent f/u for cp/sob/headache Call pcp on Friday to update. Nishant Donald APRN.[employer]OR PLATE WASHER documented in this encounterE[facility]02-06-2024 Miscellaneous Notes* Letter - Coordinator, Mammography - 10/21/2023 3:04 PM EST October 22, 2023 PID: [id number] Quita Spencer [address] [place] [address] Dear Ms. Spencer, We are pleased to inform you that the results of your recent breast imaging exam on 10/21/2023 are normal. Early detection of cancer is very important. We also understand recommendations regarding breast cancer screening are controversial. Please discuss with your primary care provider which strategy is best for you and whether a mammogram is right for you. Your imaging studies and report will be kept on file at [facility] as part of your permanent medical record and are available for your continuing care. Thank you for allowing us to help in meeting your health care needs. Sincerely, Dr. Mckeon Interpreting Radiologist [facility] (Normal over 40) documented in this encounterElyria [facility]02-01-2024 Miscellaneous Notes* Telephone Encounter - Isabella Wallace MD - 10/16/2023 1:30 PM EST Ordered. Thanks. Isabella Wallace MD * Telephone Encounter - Christa Coulter - 10/16/2023 10:04 AM EST Patient verified by name and . The appointment center scheduled her for her mammogram screening on 10/21/23 and pended an order for it. Requesting for the order to be signed and attached to her appointment. Quita would like to receive a call when completed so she knows it is ok to keep her appointment. Please review and advise. documented in this encounterEly[facility]04-17-2023 Miscellaneous Notes* Telephone Encounter - Brooke Mchugh - 12/30/2022 7:28 AM EDT Patient given results and verbalized understanding of instructions given. Brooke Mchugh * Telephone Encounter - Fredo Kwong APRN.CNP - 12/30/2022 7:22 AM EDT Patient is positive for COVID. Negative for flu. Patient should quarantine for 5 days and mask for another 5 days. Patient is to follow-up with primary care provider if symptoms worsen. documented in this encounterE[facility]04-16-2023 History of Present illness Narrative* Iveth Low APRN.YULY - 12/29/2022 12:45 PM EDT Subjective Sinus Problem Associated symptoms include congestion and coughing. Pertinent negatives include no chills, fever, myalgias or sore throat. Quita Spencer is a 47 year old female who presents with 2 days of cough, nasal congestion, and popping sound in her ears. She was at [facility] and was getting air quality alerts. States her asthma is triggered by viral illness or pollens. She has been using her inhaler but it is . She also took her allergy pill. Review of Systems Constitutional: Negative for chills and fever. HENT: Positive for congestion and tinnitus. Negative for ear pain, sinus pain and sore throat. Respiratory: Positive for cough and wheezing. Negative for shortness of breath. Cardiovascular: Negative. Musculoskeletal: Negative for myalgias. BP 102/66 Pulse 104 Temp 36.9 C (98.5 F) Resp 18 Wt 57.6 kg (127 lb) LMP 09/27/2020 (Exact Date) SpO2 100% BMI 24.00 kg/m PAST MEDICAL HISTORY Diagnosis Date Dysphagia GERD (gastroesophageal reflux disease) Post viral RAD (reactive airway disease) cough/wheezing with URIs PAST SURGICAL HISTORY Procedure Laterality Date CHOLECYSTECTOMY 12/2015 CORRECT BUNION,SIMPLE 1994 LEFT FOOT ESOPHAGOGASTRODUODENOSCOPY TRANSORAL DIAGNOSTIC 09/06/2015 EGD GALLBLADDER/EF 12/2015 ALLERGIES Doxycycline MEDICATIONS promethazine (PHENERGAN) 12.5 mg tablet take 1 tablet by mouth every 8 hours if needed for nausea Omeprazole 40 mg capsule Take 40 mg by mouth once daily. as necessary albuterol HFA (PROVENTIL HFA, VENTOLIN HFA) 90 mcg/actuation inhaler Inhale 2 Puffs as instructed every 4 hours as needed for wheezing/shortness of breath. Inhalational Spacing Device 1 Device one time only for 1 dose. predniSONE (DELTASONE) 10 mg tablet Take 4 tabs daily for 3 days, then 2 tabs daily for 3 days, then 1 tab daily for 3 days with food. FAMILY HISTORY Problem Relation Age of Onset Diabetes Mother Hypertension Mother Breast Cancer Mother age 61, was tested and neg Hypertension Father other (liver disease) Father Breast Cancer Maternal Grandmother Diabetes Maternal Grandmother Hypertension Maternal Grandmother Breast Cancer Other MATERNAL GREAT AUNTS X2 Diabetes Sister Hypertension Sister Social History Tobacco Use Smoking status: Never Smokeless tobacco: Never Substance Use Topics Alcohol use: Yes Comment: occasionally Drug use: No Objective Physical Exam Vitals and nursing note reviewed. Constitutional: Appearance: Normal appearance. HENT: Right Ear: Tympanic membrane, ear canal and external ear normal. Left Ear: Tympanic membrane, ear canal and external ear normal. Nose: Congestion present. No mucosal edema or rhinorrhea. Mouth/Throat: Mouth: Mucous membranes are moist. Pharynx: Oropharynx is clear. Uvula midline. No oropharyngeal exudate or posterior oropharyngeal erythema. Cardiovascular: Rate and Rhythm: Normal rate and regular rhythm. Heart sounds: Normal heart sounds. Pulmonary: Effort: Pulmonary effort is normal. No respiratory distress. Breath sounds: Wheezing (few, scattered) present. No rales. Musculoskeletal: Cervical back: Neck supple. Lymphadenopathy: Cervical: No cervical adenopathy. Skin: General: Skin is warm and dry. Findings: No erythema or rash. Neurological: Mental Status: She is alert. ASSESSMENT/PLAN: 1. Exacerbation of intermittent asthma, unspecified asthma severity - ICD9: 493.92, ICD10: J45.21 (primary diagnosis) - ALBUTEROL SULFATE HFA 90 MCG/ACTUATION AEROSOL INHALER - INHALATIONAL SPACING DEVICE - PREDNISONE 10 MG TABLET 2. Viral URI with cough - ICD9: 465.9, ICD10: J06.9 - Discussed viral etiology and rationale for treatment. - Symptomatic treatment with prn analgesia - Supportive care with fluids and rest - COVID WITH FLUA+B, ROUTINE - Follow-up with your PCP in 3-5 days if symptoms have not improved or sooner if symptoms worsen - Discussed red flags and need for immediate medical evaluation if any occur. - Discussed supportive care treatment with fluids, rest and analgesia. - Discussed expected course of illness Iveth Low APRN.YULY documented in this encounterEly[facility]04-16-2023 Instructions* Patient Instructions* Iveth Low APRN.STATOR PLATE WASHER - 12/29/2022 12:45 PM EDT ASSESSMENT/PLAN: 1. Exacerbation of intermittent asthma, unspecified asthma severity - ICD9: 493.92, ICD10: J45.21 (primary diagnosis) - ALBUTEROL SULFATE HFA 90 MCG/ACTUATION AEROSOL INHALER - INHALATIONAL SPACING DEVICE - PREDNISONE 10 MG TABLET 2. Viral URI with cough - ICD9: 465.9, ICD10: J06.9 - Discussed viral etiology and rationale for treatment. - Symptomatic treatment with prn analgesia - Supportive care with fluids and rest - COVID WITH FLUA+B, ROUTINE - Follow-up with your PCP in 3-5 days if symptoms have not improved or sooner if symptoms worsen - Discussed red flags and need for immediate medical evaluation if any occur. - Discussed supportive care treatment with fluids, rest and analgesia. - Discussed expected course of illness Iveth Low APRN.CNP Treatment for Viral Upper Respiratory Tract Infections Your body will kill off the virus by itself. Additionally, you can prime your body's immune system.This may help you get better more quickly. Drink lots of fluids Make sure you are eating well Get plenty of rest We do not have any medications that kill off these viruses. Antibiotics are used to treat bacterialinfections; however, they are not active against viral infections. There are some things that mighthelp you feel better, though. Vaporizers, humidifiers, hot showers, and hot fluids help open respiratory and sinus passages [place] Nasal [place] may offer relief of nasal and head congestion Alvarado's Vapor Rub may relieve congestion Tylenol and Advil help control fevers and headaches Salt water gargles help relieve sore throats Chloraceptic spray or throat lozenges may also help relieve sore throat symptoms Occasionally, viral infections turn into something more serious. You should see your doctor or return to the Urgent Care if: You have fevers for longer than five days You have fevers above 102 degrees You are still sick after 10 days You have shortness of breath or wheezing After several days you are getting worse rather than better documented in this encounterE[facility]10-04-2022 History of Present illness Narrative* RT Varsha(R) - 06/18/2022 7:30 AM EDT Radiology Service Progress Note PATIENT NAME: Quita Spencer DATE OF SERVICE: June 18, 2022 TIME: 8:04 AM PATIENT IDENTITY VERIFICATION COMPLETED USING TWO (2) IDENTIFIERS: Name and Date of confirmedby patient verbally. FALL SCREENING: Has the patient had 2 falls in the last year or 1 fall with injury or currently using an Ambulatory Assistive Device (Walker, Cane, Wheelchair, Crutches, etc.)? No PATIENT GENDER DATA: Female. status: : No status: NO. PATIENT RELEVANT IMPLANT DATA REVIEWED: Not Applicable RADIOLOGY DEPARTMENT: Mammography PERIPHERAL IV DATA: Not applicable SIGNED BY: RT Varsha(R) June 18, 2022 8:04 AM documented in this encounterElyria [facility] Hospital09-19-2022 Miscellaneous Notes* Telephone Encounter - Carol Hickey RN - 06/03/2022 8:06 AM EDT Mammogram order pending. Please file and forward to PSS to assist patient with scheduling. Thank you. Carol Hickey RN * Telephone Encounter - Shawna Kelly - 06/01/2022 7:14 AM EDT Patient sent my chart message request to schedule mammography please place order last Mammography was 10/17/2020. documented in this [facility] of [facility] Narrative* Problem Noted Date Resolved Date Mittelschmerz 10/31/2005 08/24/2015 documented as of this encounter (statuses as of 06/03/2022) [place] [id number] History of Past illness Narrative* Problem Noted Date Resolved Date Mittelschmerz 10/31/2005 08/24/2015 documented as of this encounter (statuses as of 06/19/2022) [address]16-2006 History of Past illness Narrative* Problem Noted Date Resolved Date Mittelschmerz 10/31/2005 08/24/2015 documented as of this encounter (statuses as of 12/29/2022) [address]16-2006 History of Past illness Narrative* Problem Noted Date Resolved Date Mittelschmerz 10/31/2005 08/24/2015 documented as of this encounter (statuses as of 12/30/2022) [address]16-2006 History of Past illness Narrative* Problem Noted Date Diagnosed Date Resolved Date Mittelschmerz 10/31/2005 08/24/2015 documented as of this encounter (statuses as of 10/17/2023) [address]16-2006 History of Past illness Narrative* Problem Noted Date Diagnosed Date Resolved Date Mittelschmerz 10/31/2005 08/24/2015 documented as of this encounter (statuses as of 10/23/2023) [facility] noteNo assessment information availableWMer[facility] Work Phone: Evaluation note* Diagnosis Encounter for screening mammogram for malignant neoplasm of breast- Primary Other screening mammogram documented in this encounter [facility] note* Diagnosis Encounter for screening mammogram for malignant neoplasm of breast Other screening mammogram documented in this encounter [facility] note* Diagnosis Exacerbation of intermittent asthma, unspecified asthma severity- Primary Viral URI with cough Acute upper respiratory infections of unspecified site documented in this encounter [facility] note* Diagnosis Encounter for other screening for malignant neoplasm of breast- Primary documented in this encounter [facility] note* Diagnosis ETD (Eustachian tube dysfunction), left- Primary Erythema of pharynx Unspecified disease of pharynx Elevated blood pressure reading without diagnosis of hypertension documented in this encounter [facility] note* Diagnosis Acute laryngitis- Primary Acute laryngitis, without mention of obstruction Acute URI Acute upper respiratory infections of unspecified site documented in this encounter [facility] note* Diagnosis Rhinosinusitis- Primary Unspecified sinusitis (chronic) documented in this encounter [facility] note* Diagnosis Exacerbation of intermittent asthma, unspecified asthma severity (HCC) documented in this encounter [facility] Discharge instructions Additional Instructions Please use the spacer with your albuterol MDI. You may do 2 puffs every 2 hours or sooner if needed.[facility] Work Phone: Reason for referral (narrative)* Diagnostic Procedure Only (Routine) - Authorized Specialty Diagnoses / Procedures Referred By Maria Elena t Referred To Contact [facility] Diagnoses Encounter for screening mammogram for malignant neoplasm of breast Procedures SOCO SCREENING SCREENING MAMMOGRAPHY BI 2-VIEW BREAST INC CAD Isabella Wallace MD [address] [place] [address] [facility] [address] [place] [address] [place] [address] Referral ID Status Reason Start Date Expiration Date Visits Requested Visits Authorized [id number] Authorized Auto-Generat ed Referral 06/03/2022 07/03/2023 1 1 [facility] for referral (narrative)* Diagnostic Procedure Only (Routine) - Closed Specialty Diagnoses / Procedures Referred By Maria Elena polanco Referred To Contact [facility] Diagnoses Encounter for screening mammogram for malignant neoplasm of breast Procedures SOCO SCREENING SCREENING MAMMOGRAPHY BI 2-VIEW BREAST INC Isabella Chiu MD [address] [place] [address] [facility] [address] [place] [address] Referral ID Status Reason Start Date Expiration Date V isits Requested Visits Authorized [id number] Closed Auto-Generate d Referral 06/03/2022 07/03/2023 1 1 [facility] for referral (narrative)* Diagnostic Procedure Only (Routine) - Pending Review Specialty Diagnoses / Procedures Referred By Maria Elena polanco Referred To Contact [facility] Diagnoses Encounter for other screening for malignant neoplasm of breast Procedures SOCO SCREENING SCREENING MAMMOGRAPHY BI 2-VIEW BREAST INC Isabella Chiu MD [address] [place] [address] [facility] [address] [place] [address] Referral ID Status Reason Start Date Expiration Date Visits Requested Visits Authorized [id number] Pending Review Auto-Generat ed Referral 10/16/2023 11/14/2024 1 1 [facility] for referral (narrative)No reason for referral information availableWMercy Health [facility] Work Phone: Rejkhj for visit Narrative* Diagnostic Procedure Only (Routine) - Closed Specialty Diagnoses / Procedures Referred By Maria Eelna polanco Referred To Contact [facility] Diagnoses Encounter for screening mammogram for malignant neoplasm of breast Procedures SOCO SCREENING SCREENING MAMMOGRAPHY BI 2-VIEW BREAST INC Isabella Chiu MD [address] [place] [address] [facility] [address] [place] [address] Referral ID Status Reason Start Date Expiration Date V isits Requested Visits Authorized [id number] Closed Auto-Generate d Referral 06/03/2022 07/03/2023 1 1 [facility] Summary Purpose Family History Relationship Condition Age at Onset Recorded Date/T marquez mother Malignant neoplasm Unknown Diabetes mellitus Unknown grandmother Diabetes mellitus Unknown Malignant neoplasm Unknown sister Diabetes mellitus Unknown father Disorder of liver Unknown Advance Directives Advance Directive Response Recorded Date/ Time Living Will No December 24, 2024 8:42am Do you have a Healthcare Power of Shopping Centre Manager? No December 24, 2024 8:42am Chief Complaint and Reason for Visit Chief Complaint Admit Date CONCERN FOR UTI November 21, 2024 12:2 7pm asthma December 24, 2024 8:3 3am Reason for Visit Admit Date UTI (urinary tract infection) November 21, 2024 12:27pm Chief Complaint LUQP Chief Complaint FASTING Chief Complaint Admit Date CONCERN FOR UTI November 21, 2024 12:2 7pm Chief Complaint Admit Date CONCERN FOR UTI November 21, 2024 12:2 7pm asthma December 24, 2024 8:3 3am ER Follow up January 05, 2025 10: 09am J45.909 - Unspecified asthma, uncomplica avtar January 11, 2025 6:45am Reason for Visit Admit Date UTI (urinary tract infection) November 21, 2024 12:27pm Asthma January 05, 2025 10: 09am Chief Complaint Admit Date CONCERN FOR UTI November 21, 2024 12:2 7pm asthma December 24, 2024 8:3 3am ER Follow up January 05, 2025 10: 09am J45.909 - Unspecified asthma, uncomplica avtar January 11, 2025 6:45am 6 wk FU February 16, 2025 7:38a m Health Concerns Infection Onset Date Last Indicated Resolved Time COVID-19 Confirmed 12/29/2022 12/29/2022 Additional Source Comments INFORMATION SOURCE (unrecogn ized section and content) DATE CREATED AUTHOR 12/13/2018 [facility] DATE CREATED AUTHOR AUTHOR'S ORGANIZ ATION 12/21/2024 [facility] DATE CREATED AUTHOR AUTHOR'S ORGANIZ ATION 02/22/2025 [facility] Goals (unrecognized section and content) Goals may be documented in a n alternate sectionGoals may be documented in an alternate sectionGoals may be documented in an alternate sectionGoals may be documented in an alternate sectionGoals may be documented in an alternate sectionGoals may be documented in an alternate section Source Comments (unrecognize d section and content) In the event this informatio n is protected by the Federal Confidentiality of Alcohol and Drug Abuse Patient Records regulations: The Federal rules restrict any use of the information to criminally investigate or prosecute any alcohol or drug abuse patient.[facility] HospitalIn the event this information is protected by the Federal Confidentiality of Alcohol and Drug Abuse Patient Records regulations: The Federal rules restrict any use of the information to criminally investigate or prosecute any alcohol or drug abuse patient.[facility] HospitalIn the event this information is protected by the Federal Confidentiality of Alcohol and Drug Abuse Patient Records regulations: The Federal rules restrict any use of the information to criminally investigate or prosecute any alcohol or drug abuse patient.[facility] HospitalIn the event this information is protected by the Federal Confidentiality of Alcohol and Drug Abuse Patient Records regulations: The Federal rules restrict any use of the information to criminally investigate or prosecute any alcohol or drug abuse patient.[facility] HospitalIn the event this information is protected by the Federal Confidentiality of Alcohol and Drug Abuse Patient Records regulations: The Federal rules restrict any use of the information to criminally investigate or prosecute any alcohol or drug abuse patient.[facility] HospitalIn the event this information is protected by the Federal Confidentiality of Alcohol and Drug Abuse Patient Records regulations: The Federal rules restrict any use of the information to criminally investigate or prosecute any alcohol or drug abuse patient.[facility] HospitalIn the event this information is protected by the Federal Confidentiality of Alcohol and Drug Abuse Patient Records regulations: The Federal rules restrict any use of the information to criminally investigate or prosecute any alcohol or drug abuse patient.[facility] HospitalIn the event this information is protected by the Federal Confidentiality of Alcohol and Drug Abuse Patient Records regulations: The Federal rules restrict any use of the information to criminally investigate or prosecute any alcohol or drug abuse patient.[facility] HospitalIn the event this information is protected by the Federal Confidentiality of Alcohol and Drug Abuse Patient Records regulations: The Federal rules restrict any use of the information to criminally investigate or prosecute any alcohol or drug abuse patient.[facility] HospitalIn the event this information is protected by the Federal Confidentiality of Alcohol and Drug Abuse Patient Records regulations: The Federal rules restrict any use of the information to criminally investigate or prosecute any alcohol or drug abuse patient.[facility] Reason for Visit (unrecogniz ed section and content) Reason Comments Orders Reason Comments Sinus Problem sinus pressure, drai nage, cough x 3 days Reason Comments Results Reason Comments Ear Pain Left ear into fronta l sinus under eye x this am Reason Comments URI With laryngitis x 2 days Reason Comments Sinus Problem Sinus pain and press ure x 10 days Reason Comments Cough sob dx with asthma Care Teams (unrecognized sec tion and content) [place] [facility] Relationship Specialty Start Date End Date Kaylie Streeter [address] [place] [address] PCP - General 09/13/04 [place] [employer] Relationship Specialty Start Date End Date Kaylie Streeter [address] [place] [address] PCP - General 09/13/04 [place] [employer] Relationship Specialty Start Date End Date Maritzarommelrajiv Kaylie Elian [address] [place], [place] [address] PCP - General 09/13/04 [place] [employer] Relationship Specialty Start Date End Date MaritzarommelrajivKaylie [address] [place] [address] PCP - General 09/13/04 [place] [employer] Relationship Specialty Start Date End Date Kaylie Streeter [address] [place] [address] PCP - General 09/13/04 [place] [employer] Relationship Specialty Start Date End Date Kaylie Streeter [address] [place] [address] PCP - General 09/13/04 Team Status: Active Member Role Status Dates Dr. Kaylie Streeter MD Family Provider Active Dr. Kaylie Streeter MD Primary Care Provider Active Team Status: Inactive Member Role Status Dates Dr. Kaylie Streeter MD Primary Care Provider Active Dr. Terry Osorio MD Attending Provider, Referring Pr ovider Active [place] [employer] Relationship Specialty Start Date End Date Kaylie Streeter [address] [place] [address] PCP - General 09/13/04 [place] [employer] Relationship Specialty Start Date End Date Kaylie Streeter [address] [place], [place] [address] PCP - General 09/13/04 Team Status: Inactive Member Role Status Dates Dr. Kaylie Streeter MD Primary Care Provider Active Start: November 21, 2024 End: November 21, 2024 Dr. Kaylie Streeter MD Referring Provider Active Start: November 21, 2024 End: November 21, 2024 David Moon TIRE SPOTTER, TIRE SPOTTER-C Attending Provider Active S tart: November 21, 2024 End: November 21, 2024 Team Status: Inactive Member Role Status Dates Dr. Kaylie Streeter MD Primary Care Provider Active Start: November 22, 2024 End: November 22, 2024 Dr. Kaylie Streeter MD Attending Provider Active Start: November 22, 2024 End: November 22, 2024 [place] Guide Relationship Specialty Start Date End Date Kaylie Streeter [address] [place] [address] PCP - General 09/13/04 Team Status: Active Member Role Status Dates Dr. Kaylie Streeter MD Primary Care Provider Active Team Status: Inactive Member Role Status Dates Dr. Kaylie Streeter MD Primary Care Provider Active Start: December 24, 2024 End: December 24, 2024 Dr. Edinson Cruz DO Emergency Provider Active Start: December 24, 2024 End: December 24, 2024 Team Status: Inactive Member Role Status Dates Dr. Kaylie Streeter MD Primary Care Provider Active Start: December 24, 2024 End: December 24, 2024 Dr. Edinson Cruz DO Attending Provider Active Start: December 24, 2024 End: December 24, 2024 Dr. Edinson Cruz DO Emergency Provider Active Start: December 24, 2024 End: December 24, 2024 Team Status: Inactive Member Role Status Dates Dr. Kaylie Streeter MD Primary Care Provider Active Start: January 05, 2025 End: January 05, 2025 Dr. Kaylie Streeter MD Referring Provider Active Start: January 05, 2025 End: January 05, 2025 Dr. John Lobo DO Attending Provider Active S tart: January 05, 2025 End: January 05, 2025 Team Status: Inactive Member Role Status Dates Dr. Kaylie Streeter MD Primary Care Provider Active Start: January 11, 2025 End: January 11, 2025 Dr. John Lobo DO Attending Provider Active S tart: January 11, 2025 End: January 11, 2025 Dr. John Lobo DO Referring Provider Active S tart: January 11, 2025 End: January 11, 2025 Team Status: Inactive Member Role Status Dates Dr. Kaylie Streeter MD Primary Care Provider Active Start: February 16, 2025 End: February 16, 2025 Dr. Kaylie Streeter MD Referring Provider Active Start: February 16, 2025 End: February 16, 2025 Emily Mccain TIRE SPOTTER, TIRE SPOTTER-C Attending Provider Active Start: February 16, 2025 End: February 16, 2025 FOR RECORDS PERTAINING TO PATIENTS WHO ARE OR HAVE BEEN ENROLLED IN A CHEMICAL DEPENDENCY/SUBSTANCEABUSE PROGRAM, SOME INFORMATION MAY BE OMITTED. This clinical summary was aggregated from multiple sources. Caution should be exercised in using it in the provision of clinical care. This summary normalizes information from multiple sources, and as a consequence, information in this document may materially change the coding, format and clinical context of patient data. In addition, data may be omitted in some cases. CLINICAL DECISIONS SHOULD BE BASED ON THE PRIMARY CLINICAL RECORDS. [employer] provides no warranty or guarantee of the accuracy or completeness of information in this document.
[2025-03-01] MEDS: Methacholine Chloride 18 ml neb kit INHALATION (06:59)
== END | disposition home or self-care (01) ==
LOC: PSN 06:48
PROVIDERS: PCP Family Medicine; Referring Provider Nurse Practitioner Acute Care; Visit Provider Nurse Practitioner Acute Care
DX: J45.909 Unspecified asthma, uncomplicated (principal)
CPT/HCPCS: 94070; 95070

== ENCOUNTER → 2025-03-07 | Outpatient (CLI) | payer OTHER, SELFPAY | END | disposition home or self-care (01) | LOC: LABSPEC 07:52 | PROVIDERS: PCP Family Medicine; Visit Provider Physician Assistant | DX: R82.90 Unspecified abnormal findings in urine (principal) | CPT/HCPCS: 87086 ==

== ENCOUNTER → 2025-03-11 | Outpatient (CLI) | payer OTHER, SELFPAY ==
[2025-03-11 12:16] LABS: Absolute Lymphocyte Count 1.71 X10^3/uL (0.83-4.51); Absolute Neutrophil Count 2.4 X10^3/uL (2.0-7.7); Basophil# 0.05 X10^3/uL; Eosinophil# 0.12 X10^3/uL; Eosinophils% 2.5 % (0-5); Hematocrit 39.4 % (37-47); Hemoglobin 13.2 g/dL (12.0-15.0); Lymphocyte # 1.71 X10^3/ul (0.83-4.51); Lymphocyte % 35.8 % (19-41); Mean Corp Hgb Conc 33.5 g/dL (32-36); Mean Corpuscular Hgb 29.9 pg (27.0-32.0); Mean Corpuscular Volume 89.3 fL (81-99); Mean Platelet Vol. 9.6 fl (6.2-12.0); Monocyte# 0.45 X10^3/uL; Monocyte% 9.4 % (0-10); NRBC Flagged by Analyzer 0 % (0-5); Neutrophil # 2.42 X10^3/uL (2.7-7.7); Neutrophil % 50.9 % (47-70); Platelet Count 181 K/mm3 (150-450); RBC Distribution Width CV 12.7 % (11.6-14.6); RBC Distribution Width SD 41.8 fl (35.1-43.9); Red Blood Count 4.41 M/mm3 (4.2-5.4); White Blood Count 4.8 K/mm3 (4.4-11.0)
== END | disposition home or self-care (01) ==
LOC: LAB 11:46
PROVIDERS: PCP Family Medicine; Referring Provider Nurse Practitioner Family; Visit Provider Nurse Practitioner Family
DX: R06.02 Shortness of breath (principal)
CPT/HCPCS: 36415; 85025

== ENCOUNTER → 2025-03-29 | Outpatient (CLI) | payer OTHER, SELFPAY ==
--- NOTE | 2025-03-29 17:01 | CT_ITS ---
EXAM: CT Chest Without Intravenous Contrast CLINICAL INDICATION: COUGH FOR >6 MONTHS TECHNIQUE: Axial computed tomography images of the chest without intravenous contrast. This CT exam was performed using one or more of the following dose reduction techniques: automated exposure control, adjustment of the mA and/or kV according to patient size, and/or use of iterative reconstruction technique. COMPARISON: No relevant prior studies available. FINDINGS: LUNGS AND PLEURAL SPACES: Lung emphysema/COPD with bilateral apical scarring. Otherwise, no focal consolidation. 3 mm nodule of the lateral left lung base. No significant effusion. No pneumothorax. HEART: Unremarkable. No cardiomegaly. No significant pericardial effusion. No significant coronary artery calcifications. MEDIASTINUM: A few prominent mediastinal lymph nodes measuring up to 6 mm. Small esophageal hiatal hernia. BONES/JOINTS: Unremarkable. No acute fracture. SOFT TISSUES: Unremarkable. VASCULATURE: Scattered calcified atherosclerotic disease of aorta. No thoracic aortic aneurysm. LYMPH NODES: See above. CT/Chest without Contrast IMPRESSION: 1. Small esophageal hiatal hernia. 2. Lung emphysema/COPD with bilateral apical scarring. Otherwise, no focal co nsolidation. 3 mm nodule of the lateral left lung base. 3. Continue low-dose CT scan of the chest in 12 months is recommended. Reading Location: [facility]
== END | disposition home or self-care (01) ==
LOC: CT 17:00
PROVIDERS: PCP Family Medicine; Referring Provider Nurse Practitioner Family; Visit Provider Nurse Practitioner Family
DX: R05.9 Cough, unspecified (principal); R06.02 Shortness of breath
CPT/HCPCS: 71250

== ENCOUNTER → 2025-06-01 | Outpatient (CLI) | payer OTHER, SELFPAY ==
--- NOTE | 2025-06-01 07:45 | BI_ITS ---
EXAM: SCRN MAMM (CAD)W/BATSHEVA BILAT DATE: 06/01/2025 CLINICAL HISTORY: F, Age 49 y/o , SCREENING Mother with breast cancer. Grandmother with breast cancer. TECHNIQUE: Procedure Code: [id number] Modality: MG Procedure: SCRN MAMM (CAD)W/BATSHEVA BILAT COMPARISON: Prior exam(s) dated outside examination dated October 21, 2023.. FINDINGS: TISSUE DENSITY: The breasts are heterogeneously dense, which may obscure small masses. Bilateral Breast Mammographic Findings: No significant masses, calcifications or other abnormalities are identified. No suspicious masses, areas of developing architectural distortion, or suspicious calcifications. There has been no significant interval change. BI/SCRN MAMM (CAD)W/BATSHEVA BILAT IMPRESSION: Stable bilateral screening mammogram. OVERALL FINAL ASSESSMENT BI-RADS 1: NEGATIVE. RECOMMENDATION: Routine annual follow-up in 1 Year A letter with findings and recommendations will be mailed to the patient. Reading Location: [place] [address]
== END | disposition home or self-care (01) ==
LOC: OPBI 07:32
PROVIDERS: PCP Family Medicine; Referring Provider Nurse Practitioner Family; Visit Provider Nurse Practitioner Family
DX: Z12.31 Encounter for screening mammogram for malignant neoplasm of breast (principal); Z80.3 Family history of malignant neoplasm of breast
CPT/HCPCS: 77063; 77067